=== PATIENT | male | born 1945 | race Caucasian/White ===

== ENCOUNTER → 2017-01-10 | Outpatient (CLI) | payer BC, MEDICARE ==
[~2017-01-10] MED LIST: ALBU18HF2 INH; APIX5TAB PO; CLOT10TR PO; COLE625T PO; DOCU-132 PO; ESOM40CA PO; FENT1PAT28 TOP; FLUT1DIS3 ORAL INH; HYDR-4078 PO; IPRA3AMP AEROSOL; LACT1CAP58 PO; LORA0.5T2 PO; MONT10TA22 PO; ONDA-55 PO; OXYC1TAB11 PO; POLY17PO6 PO; PROP10TA10 PO; ROSU20TA PO; SERT25TA5 PO; VALA500T42 PO
== END ==
LOC: LABN 08:19
PROVIDERS: ATTEND Family Medicine
DX: R19.7 Diarrhea, unspecified (principal)
CPT/HCPCS: 87507

== ENCOUNTER 2017-01-21 06:43 | Emergency (ER) | payer MEDICARE, BC ==
[~2017-01-21] VITALS: Ht 167.6 cm; Wt 79.1 kg
[2017-01-21 06:47] VITALS: Ht 167.6 cm; Wt 79.1 kg
--- OUTSIDE RECORDS SUMMARY | 2017-01-21 06:48 | XMS REPORT | Referral Summary ---
Author Author [facility] Medicine Organization [facility] [place] Address Unknown Phone Unavailable Care Team Providers Care Report Developer Name Role Phone Surekha Basurto Primary Care Physician [phone] Encounter VC Date(s): 10/02/16 - 10/02/16 [facility] [place] [address] [place] [id number]- Discharge Diagnosis: Multiple myeloma Discharge Diagnosis: ASHLEY (generalized anxiety disorder) Discharge Diagnosis: Mild persistent asthma Discharge Diagnosis: History of pulmonary embolism Discharge Disposition: 01-Home or Self Care Attending Physician: Cortez Basurto MD Vital Signs Most recent to 1 oldest [Reference Range]: Temperature Tympanic 36.4 degC [36.6-38.1 degC] *LOW* (10/02/16 1:19 PM) Peripheral Pulse 76 bpm Rate [60-100 bpm] (10/02/16 1:19 PM) Blood Pressure 128/80 mmHg [90-140/60-90 mmHg] (10/02/16 1:19 PM) SpO2 97 % (10/02/16 1:19 PM) Problem List Condition Effective Dates Status Health Status Informant Abdominal Active pain(Confirmed) LLQ abdominal Active tenderness(Confirmed ) Acute Active bronchitis(Confirmed ) Acute Active pain(Confirmed) Allergic Resolved rhinitis(Confirmed) Alteration in Active nutrition(Confirmed) 1 Anemia(Confirmed) Resolved At high risk for Active pneumonia(Confirmed) At risk for Active injury(Confirmed)2 At risk of pressure Active sore(Confirmed) Abnormal barium Active swallow(Confirmed) Benign prostatic Resolved hyperplasia(Confirme d) Bleeding Active precautions(Confirme d)3 Cancer of Resolved prostate(Confirmed) Oral Active thrush(Confirmed) CAD (coronary artery Active disease)(Confirmed) Coronary artery Resolved disease(Confirmed) Chronic Resolved diarrhea(Confirmed) Chronic low Active WBC(Confirmed) Dysuria(Confirmed) Active Eczema(Confirmed) Resolved Benign essential Active tremor(Confirmed) ASHLEY (generalized Active anxiety disorder)(Confirmed) History of pulmonary Active embolism(Confirmed) Personal history of Active prostate cancer(Confirmed) High blood Active cholesterol(Confirme d) Hypertension(Confirm Active ed) Impaired gas Active exchange(Confirmed)4 Nephrolithiasis(Conf Active irmed) Knowledge Active deficit(Confirmed)5 Left flank Active pain(Confirmed) Left inguinal Active hernia(Confirmed) Prostate 2008 Resolved cancer(Confirmed) Prostate 2007 Resolved cancer(Confirmed) Well adult Active exam(Confirmed) Microscopic Resolved hematuria(Confirmed) Asthma(Confirmed) Active Multiple Active patient myeloma(Confirmed) Obesity(Confirmed) Active patient Pathologic lumbar Active vertebral fracture(Confirmed) Hypercholesterolemia Active (Confirmed) Colon cancer Resolved screening(Confirmed) 1Problem added automatically by system based on initiation of Alteration in Nutrition Plan of Care 2Problem added automatically by system based on initiation of Risk for Injury Plan of Care 3Problem added automatically by system based on initiation of Bleeding Precautions Plan of Care 4Problem added automatically by system based on initiation of Impaired Gas Exchange Plan of Care 5Problem added automatically by system based on initiation of Knowledge Deficit Plan of Care Allergies, Adverse Reactions, Alerts Substance Reaction Severity Status aspirin upset stomach Active atorvastatin myalgias Active Dilaudid1 Active morphine extended release abdominal pain, nausea Active theophylline tachycardia Active 1Nausea/vomitting Medications acyclovir 800 mg oral tablet 800 mg 1 tabs, Oral, BID, 0 Refill(s) Start Date: 09/30/16 Status: Ordered Advair Diskus 250 mcg-50 mcg inhalation powder 1 puffs, Inhalation, BID, 0 Refill(s) Start Date: 07/27/16 Status: Ordered albuterol CFC free 90 mcg/inh inhalation aerosol 1 puffs, Inhalation, QID, as needed for wheezing, takes it routinely, # 18 g, 11 Refill(s), Pharmacy: [facility] #[id number] Start Date: 05/21/16 Status: Ordered Carafate 1 g/10 mL oral suspension 1 g 10 mL, Oral, QIDACHS, 0 Refill(s) Start Date: 09/30/16 Status: Ordered clotrimazole 10 mg oral lozenge 10 mg 1 lozenges, Oral, QID, 0 Refill(s) Start Date: 09/30/16 Status: Ordered Dulcolax Laxative See Instructions, 1 tablet daily as needed for constipation, 0 Refill(s) Start Date: 06/05/16 Status: Ordered DuoNeb 0.5 mg-2.5 mg/3 mL inhalation solution 3 mL, NEB, QID, takes it 2-3 times daily, on average, 0 Refill(s) Start Date: 03/23/16 Status: Ordered Eliquis 5 mg oral tablet 5 mg 1 tabs, Oral, BID, # 60 tabs, 11 Refill(s), Pharmacy: [facility] # [id number], 1 tabs Oral BID Start Date: 03/06/16 Status: Ordered fentaNYL 50 mcg/hr transdermal film, extended release 1 patches, Topical, q72hr, # 10 patches, 0 Refill(s) Start Date: 09/29/16 Status: Ordered Klor-Con M10 oral tablet, extended release 20 mEq 2 tabs, Oral, BID, # 120 tabs, 0 Refill(s), Pharmacy: [facility] # [id number], 2 tabs Oral BID,x30 days Start Date: 09/30/16 Stop Date: 10/30/16 Status: Ordered LORazepam 0.5 mg oral tablet 0.5 mg 1 tabs, Oral, TID, as needed for anxiety, only takes it once a day, on average, 0 Refill(s) Start Date: 08/31/16 Status: Ordered magnesium hydroxide 8% oral suspension 2.4 g 30 mL, Oral, Bedtime (once a day), as needed for constipation, # 300 mL, 0 Refill(s) Start Date: 09/30/16 Status: Ordered NexIUM 40 mg oral delayed release capsule 40 mg 1 caps, Oral, Daily, # 30 caps, 0 Refill(s) Start Date: 09/30/16 Status: Ordered Percocet 7.5/325 oral tablet 1 tabs, Oral, QID, as needed for pain, # 30 tabs, 0 Refill(s) Start Date: 07/13/16 Status: Ordered predniSONE 10 mg oral tablet See Instructions, 4 tabs QD X 2d, 3 tabs QD X 2d, 2 tabs QD X 2d, 1 tab QD X 2d , # 20 tabs, 0 Refill(s), Pharmacy: [facility] #[id number], 4 tabs QD X 2d, 3 tabs QD X 2d, 2 tabs QD X 2d, 1 tab QD X 2d Start Date: 10/02/16 Stop Date: 10/10/16 Status: Ordered propranolol 10 mg oral tablet 10 mg 1 tabs, Oral, BID, # 60 tabs, 5 Refill(s), Pharmacy: [facility] # [id number], 1 tabs Oral BID Start Date: 06/15/16 Status: Ordered sertraline 25 mg, Oral, qPM, 0 Refill(s) Start Date: 03/23/16 Status: Ordered Singulair 10 mg oral tablet 10 mg 1 tabs, Oral, qPM, # 90 tabs, 3 Refill(s), Pharmacy: [facility] # [id number], 1 tabs Oral qPM Start Date: 03/11/16 Status: Ordered Zofran 8 mg, Oral, TID, as needed for nausea/vomiting, taking it twice a week, on average, 0 Refill(s) Start Date: 04/27/16 Status: Ordered Results No data available for this section Immunizations Given and Recorded Vaccine Date Status Refusal Reason tetanus/diphth/pertuss (Tdap) adult/adol 09/25/08 Recorded hepatitis A-hepatitis B vaccine 07/27/14 Given hepatitis A-hepatitis B vaccine 11/17/13 Given hepatitis A-hepatitis B vaccine 11/18/12 Given influenza virus vaccine, inactivated 06/05/16 Given influenza virus vaccine, inactivated 07/08/15 Given influenza virus vaccine, inactivated1 06/15/14 Recorded influenza virus vaccine, live 06/19/13 Given influenza virus vaccine, live 08/30/12 Given pneumococcal 13-valent conjugate vaccine 11/23/14 Given pneumococcal 13-valent conjugate vaccine2 11/17/13 Given pneumococcal 23-polyvalent vaccine 11/17/13 Given pneumococcal 23-polyvalent vaccine 09/25/08 Recorded pneumococcal 23-polyvalent vaccine 07/11/02 Recorded zoster vaccine live 09/25/08 Recorded 1Result Comment: [06/15/2014] See scanned document 2Result Comment: [05/23/2015 Uncharted] Uploaded in Error - CC Procedures Procedure Date Related Diagnosis Body Site Insertion Dialysis Catheter (Right, Internal, 07/27/16 Jugular)1 Cardiac catheterisation2 2015 Pulmonary emboli3 2015 Esophagogastroduodenoscopy and biopsy4 06/10/15 Repair of inguinal hernia5 06/11/14 Colonoscopy6 01/12/14 Cholecystectomy 2012 Laparoscopic cholecystectomy 2012 Sigmoidoscopy 2010 Cystoscopy/laser vaporization 2008 Pelvic lymphadenectomy, bilateral 2008 Radiacl nerve - sparing retropubic 2008 prostatectomy Bone marrow biopsy 2004 Esophagogastroduodenoscopy [EGD] with closed 2004 biopsy Sigmoidoscopy 2003 Cardiac catheterization 2000 Coronary angiogram 2000 Flexible sigmoidoscopy 1998 Tympanostomy 1998 Repair of left TM 1970 Nasal polypectomy 1959 Cystoscopy 1auto-populated from documented surgical case 2mild CAD--Dr. Oliveira 3hospitalized in January 2016 for this 4EGD with biopsies from antrum via cold biopsy forceps technique as well as polypectomies x2 via cold biopsy forceps technique 5Left, with mesh 6Normal, repeat in 10 years Social History Social History Type Response Smoking Status Light tobacco smoker1, 2, 3 1quit chewing tobacco 01/12/16. 2Pt. states has not smoked in 30 years 3quit smoking 25 years ago, but still chews daily Assessment and Plan Extracted from: Title: Ambulatory Patient Education Author: Cortez Basurto MD Date: 10/02 Allergy Asthma, Adult Asthma is a recurring condition in which the airways tighten and narrow. Asthma can make it difficult to breathe. It can cause coughing, wheezing, and shortness of breath. Asthma episodes, also called asthma attacks, range from minor to life-threatening. Asthma cannot be cured, but medicines and lifestyle changes can help control it. CAUSES Asthma is believed to be caused by inherited (genetic) and environmental factors , but its exact cause is unknown. Asthma may be triggered by allergens, lung infections, or irritants in the air. Asthma triggers are different for each person. Common triggers include: Animal dander. Dust mites. Cockroaches. Pollen from trees or grass. Mold. Smoke. Air pollutants such as dust, household force dispatcher, hair sprays, aerosol sprays, paint fumes, strong chemicals, or strong odors. Cold air, weather changes, and winds (which increase molds and pollens in the air). Strong emotional expressions such as crying or laughing hard. Stress. Certain medicines (such as aspirin) or types of drugs (such as beta- blockers). Sulfites in foods and drinks. Foods and drinks that may contain sulfites include dried fruit, potato chips, and sparkling grape juice. Infections or inflammatory conditions such as the flu, a cold, or an inflammation of the nasal membranes (rhinitis). Gastroesophageal reflux disease (GERD). Exercise or strenuous activity. SYMPTOMS Symptoms may occur immediately after asthma is triggered or many hours later. Symptoms include: Wheezing. Excessive nighttime or special service officer coughing. Frequent or severe coughing with a common cold. Chest tightness. Shortness of breath. DIAGNOSIS The diagnosis of asthma is made by a review of your medical history and a physical exam. Tests may also be performed. These may include: Lung function studies. These tests show how much air you breathe in and out. Allergy tests. Imaging tests such as X-rays. TREATMENT Asthma cannot be cured, but it can usually be controlled. Treatment involves identifying and avoiding your asthma triggers. It also involves medicines. There are 2 classes of medicine used for asthma treatment: Controller medicines. These prevent asthma symptoms from occurring. They are usually taken every day. Reliever or rescue medicines. These quickly relieve asthma symptoms. They are used as needed and provide short-term relief. Your health care provider will help you create an asthma action plan. An asthma action plan is a written plan for managing and treating your asthma attacks. It includes a list of your asthma triggers and how they may be avoided. It also includes information on when medicines should be taken and when their dosage should be changed. An action plan may also involve the use of a device called a peak flow meter. A peak flow meter measures how well the lungs are working. It helps you monitor your condition. HOME CARE INSTRUCTIONS Take medicines only as directed by your health care provider. Speak with your health care provider if you have questions about how or when to take the medicines. Use a peak flow meter as directed by your health care provider. Record and keep track of readings. Understand and use the action plan to help minimize or stop an asthma attack without needing to seek medical care. Control your home environment in the following ways to help prevent asthma attacks: Do not smoke. Avoid being exposed to secondhand smoke. Change your heating and air conditioning filter regularly. Limit your use of fireplaces and wood stoves. Get rid of pests (such as roaches and mice) and their droppings. Throw away plants if you see mold on them. Clean your floors and dust regularly. Use unscented cleaning products. Try to have someone else vacuum for you regularly. Stay out of rooms while they are being vacuumed and for a short while afterward. If you vacuum, use a dust mask from a hardware store, a double-layered or microfilter vacuum barrel cleaner bag, or a vacuum barrel cleaner with a HEPA filter. Replace carpet with wood, tile, or vinyl deisy. Carpet can trap dander and dust. Use allergy-proof pillows, mattress covers, and box spring covers. Wash bed sheets and blankets every week in hot water and dry them in a dryer. Use blankets that are made of polyester or cotton. Clean bathrooms and alejandra with bleach. If possible, have someone repaint the mars in these rooms with mold-resistant paint. Keep out of the rooms that are being cleaned and painted. Wash hands frequently. SEEK MEDICAL CARE IF: You have wheezing, shortness of breath, or a cough even if taking medicine to prevent attacks. The colored mucus you cough up (sputum) is thicker than usual. Your sputum changes from clear or white to yellow, green, anrdade, or bloody. You have any problems that may be related to the medicines you are taking (such as a rash, itching, swelling, or trouble breathing). You are using a reliever medicine more than 23 times per week. Your peak flow is still at 5079% of your personal best after following your action plan for 1 hour. You have a fever. SEEK IMMEDIATE MEDICAL CARE IF: You seem to be getting worse and are unresponsive to treatment during an asthma attack. You are short of breath even at rest. You get short of breath when doing very little physical activity. You have difficulty eating, drinking, or talking due to asthma symptoms. You develop chest pain. You develop a fast heartbeat. You have a bluish color to your lips or fingernails. You are light-headed, dizzy, or faint. Your peak flow is less than 50% of your personal best. MAKE SURE YOU: Understand these instructions. Will watch your condition. Will get help right away if you are not doing well or get worse. This information is not intended to replace advice given to you by your health care provider. Make sure you discuss any questions you have with your health care provider. Document Released: 08/30/2006 Document Revised: 09/20/2015 Document Reviewed: [employer] Patient Education 2016 [employer] No follow up information was provided. Extracted from: Title: difficulty breathing Author: Cortez Basurto MD Date: 10/02/16 Impression and Plan Diagnosis Difficulty breathing (KNC67-XM R06.89, Working, Medical). Mild persistent asthma ([id number] J45.30, Discharge, Medical). ASHLEY (generalized anxiety disorder) (OEJ25-VT F41.1, Discharge, Medical). Multiple myeloma (MBW19-TO C90.00, Discharge, Medical). History of pulmonary embolism (CDQ87-QD Z86.711, Discharge, Medical). Plan: 1) Aerosol treatment of unit dose albuterol was given today, after which he felt improved. 2) Take the Prednisone taper as prescribed. 3) Continue your routine meds. 4) Use your Duoneb QID. 5) Take the Lorazepam as needed for anxiety. 6) See me in early October as scheduled. 7) Go to the ER or come in sooner if other signs of respiratory difficulty occur: coughing, chest pains, etc.. Orders Orders (Selected) Outpatient Orders Ordered Office Visit Level 4 Est 82134: Completed albuterol 2.5 mg/3 mL (0.083%) inhalation solution: 2.5 mg, NEB, Once Future (On Hold) BMP: Magnesium Level: Prescriptions Prescribed predniSONE 10 mg oral tablet: See Instructions, 4 tabs QD X 2d, 3 tabs QD X 2d, 2 tabs QD X 2d, 1 tab QD X 2d, 20 tabs, 0 Refill(s). Dx/Order Association Plan: Diagnosis: Difficulty breathing Comment: Ordered: Office Visit Level 4 Est [id number]; 10/02/16 14:06:00 SCRUFF WORKER, Difficulty breathing | Mild persistent asthma | ASHLEY (generalized anxiety disorder) | Multiple myeloma | History of pulmonary embolism Diagnosis: ASHLEY (generalized anxiety disorder) Comment: Ordered: Office Visit Level 4 Est [id number]; 10/02/16 14:06:00 SCRUFF WORKER, Difficulty breathing | Mild persistent asthma | ASHLEY (generalized anxiety disorder) | Multiple myeloma | History of pulmonary embolism Diagnosis: History of pulmonary embolism Comment: Ordered: Office Visit Level 4 Est [id number]; 10/02/16 14:06:00 SCRUFF WORKER, Difficulty breathing | Mild persistent asthma | ASHLEY (generalized anxiety disorder) | Multiple myeloma | History of pulmonary embolism Diagnosis: Mild persistent asthma Comment: Ordered: Office Visit Level 4 Est [id number]; 10/02/16 14:06:00 SCRUFF WORKER, Difficulty breathing | Mild persistent asthma | ASHLEY (generalized anxiety disorder) | Multiple myeloma | History of pulmonary embolism Diagnosis: Multiple myeloma Comment: Ordered: Office Visit Level 4 Est [id number]; 10/02/16 14:06:00 SCRUFF WORKER, Difficulty breathing | Mild persistent asthma | ASHLEY (generalized anxiety disorder) | Multiple myeloma | History of pulmonary embolism Additional Orders: Comment: Ordered: predniSONE 10 mg oral tablet,See Instructions, 4 tabs QD X 2d, 3 tabs QD X 2d, 2 tabs QD X 2d, 1 tab QD X 2d, # 20 tabs, 0 Refill(s), Pharmacy: [facility] #[id number], 4 tabs QD X 2d, 3 tabs QD X 2d, 2 tabs QD X 2d, 1 tab QD X 2d End of Orders ."
--- OUTSIDE RECORDS SUMMARY | 2017-01-21 06:48 | XMS REPORT | Continuity of Care Document ---
Author Author [facility] Organization [facility] Address Unknown Phone Unavailable Support Name Relationship Address Phone ZARINA CHENG MD Caregiver [address] [place] [address] Unavailable MIRTA GUERRIER MD Caregiver [address] [place] [address] Unavailable ANNA JETT Next Of Kin [address] [place] [address] Insurance Providers Guarantor Zarina Mortensen Address [address] [place] [address] Email [email or web address] [facility] Policy Number [id number] Subscriber's Name Zarina Mortensen Relationship 18 Self Group Number [id number] Payer Medicare Policy Number [id number] Subscriber's Name Zarina Mortensen Relationship 18 Self Advance Directives Directive Response Recorded Date/Time Advanced Directives Type Living Will DPOA for Healthcare 01/11/14 3:07pm Ordered Resuscitation Status Full Code 01/11/14 4:34pm Resuscitation Documents on File No 01/11/14 3:07pm Chief Complaint and Reason for Visit Chief Complaint Low Back Pain or Injury Reason for Visit Chronic low back pain with bilateral sciatica Problems Active Problems Medical Problem Onset Date Status Anxiety Unknown Acute Atelectasis of both lungs Unknown Acute Compression fracture of spine ~12/2015 Chronic Dyspnea Unknown Acute GERD (gastroesophageal reflux disease) Unknown Hematuria, microscopic Unknown Acute Hyperlipidemia Unknown Chronic Hypertension Unknown Hypoxia ~01/2016 Acute LLQ abdominal pain Unknown Acute Leukopenia Unknown Chronic Lumbar strain Unknown Acute Multiple myeloma Unknown Chronic Nocturnal hypoxia Unknown Chronic Normocytic anemia Unknown Obesity (BMI 30.0-34.9) Unknown Chronic Prostate cancer ~2007 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 Urticaria Unknown Acute Past Problems Medical Problem Onset Date Acute exacerbation of chronic low back pain Unknown Acute exacerbation of chronic low back pain Unknown Anxiety Unknown Asthma exacerbation Unknown Bilateral hip pain Unknown Bony metastasis Unknown Chest pain Unknown Chest pain Unknown Chronic low back pain Unknown Chronic low back pain Unknown Chronic low back pain with bilateral sciatica Unknown Chronic low back pain with sciatica Unknown Dehydration Unknown Dehydration syndrome Unknown Dizziness Unknown Exacerbation of chronic back pain Unknown Hematuria Unknown Hx of pulmonary embolus Unknown Hx of pulmonary embolus Unknown Left sided abdominal pain Unknown Pulmonary emboli Unknown Pulmonary emboli ~01/2016 Pulmonary embolism Unknown Vomiting Unknown Medications Current Home Medications Medication Dose Units Route Directions Days Qty Instructions Start Date Albuterol Sulfate (Ventolin Hfa 90 Mcg/Actuation) 18 Gm Hfa.aer.ad 1 Puff Inhalation Four Times Daily as needed for Prn Orders 06/10/15 Apixaban (Eliquis) 5 Mg Tablet 5 Mg Oral Twice A Day 02/03/16 Clotrimazole 10 Mg Kianna 10 Mg Oral 5 Times Daily 03/30/16 Colesevelam Hcl (Welchol) 625 Mg Tablet 625 Mg Oral Bedtime 06/08 Docusate Sodium (Dulcolax Stool Softener) 100 Mg Capsule 100 Mg Oral Daily as needed for Constipation 06/18/16 Esomeprazole Magnesium (Nexium) 40 Mg Capsule.dr 40 Mg Oral Twice A Day 06/18/16 Fentanyl (Duragesic 100 Mcg/Hr) 1 Each Patch.td72 1 Patch Topically Every 72 Hours 06/18/16 Fluticasone/Salmeterol (Advair 250-50 Diskus) 1 Disk W/Dev Inhaler 1 Puff Oral Inhalation Resp.tx Twice A Day 02/03/16 Hydrocodone/Acetaminophen ([place] 10-325 Tablet) 10-325 Tablet 1-2 Tab Oral Every 4 Hours as needed for Pain 06/02/16 Ipratropium/Albuterol Sulfate (Iprat-Albut 0.5-3(2.5) Mg/3 Ml) 3 Ml Ampul.neb 1 Vial Aerosol Tx. Every 4 Hours as needed for Prn Orders 03/30/16 Lactobacillus Rhamnosus Gg (Culturelle) 1 Each Capsule 1 Cap Oral Bedtime 02/03/16 Lorazepam 0.5 Mg Tablet 0.5 Mg Oral Twice A Day 03/30/16 Montelukast Sodium (Singulair) 10 Mg Tablet 10 Mg Oral Bedtime Ondansetron Hcl 4 Mg Tablet 4 Mg Oral Twice A Day 03/30/16 Oxycodone/Acetaminophen (Percocet 7.5-325 Mg Tablet) 7.5-325 Tablet 1-2 Tab Oral Every 4 Hours as needed for Pain 30 Tablet Take 1-2 tablet(S), by mouth, every 4 hours as needed for pain. 07/11/16 Polyethylene Glycol 3350 (Miralax) 17 Gm Powd.pack 17 G Oral Daily as needed for Constipation 02/03/16 Propranolol Hcl 10 Mg Tablet 10 Mg Oral Twice A Day 06/18/16 Rosuvastatin Calcium (Crestor) 20 Mg Tablet 20 Mg Oral Bedtime Sertraline Hcl (Sertraline) 25 Mg Tablet 25 Mg Oral Bedtime 03/23 Valacyclovir Hcl (Valacyclovir) Unknown Strength Tablet 1 Tab Oral Daily 7 Days STARTING 07/18/16 07/23/16 Past Home Medications Medication Directions Ordered Status Advair , 09/24/10 Discontinued Aspirin (Aspirin Low Dose) 81 Mg Tablet.dr, 81 Mg Oral Daily 09/24/10 Discontinued Hydrocodone/Acetaminophen (Lortab 5-325 Mg Tablet) 1 Each Tablet, 5 Tab Oral Three Times A Day for Pain 05/03/16 Discontinued Magnesium Hydroxide (Milk Of Magnesia) 400 Mg/5 Ml Oral.susp, 30 Ml Oral Daily as needed for Constipation 02/03/16 Discontinued Metoprolol Succinate 25 Mg Tab.er.24h, 12.5 Mg Oral Bedtime 03/30/16 Discontinued Niaspan , 1000 Daily 09/24/10 Discontinued Oxycodone Hcl/Acetaminophen (Percocet 5-325 Mg Tablet) 5-325 Tablet, 1-2 Tab Oral Every 4 Hours as needed for Pain 05/03/16 Discontinued Oxycodone/Acetaminophen (Percocet 7.5-325 Mg Tablet) 7.5-325 Tablet, 1-2 Tab Oral Every 4 Hours as needed for Pain 07/11/16 Discontinued Simvastatin 40 Mg Tablet, 40 Mg Oral 09/24/10 Discontinued Social History Social History Problem Response Recorded Date/Time Onset Date Status Chewing Tobacco Status Y OCCASIONALLY 01/12/2014 6:37am Not Applicable Not Applicable Hx Substance Use No 07/23/2016 8:54pm Not Applicable Not Applicable Hx Alcohol Use No 07/23/2016 8:54pm Not Applicable Not Applicable Has the pt used tobacco in the last 12 months Yes 04/02/2016 9:18am Not Applicable Not Applicable Tobacco Usage none 02/19/2016 3:41pm Not Applicable Not Applicable Query Response Start Date Stop Date Smoking Status Former smoker Hospital Discharge Instructions No hospital discharge instructions. Plan of Care Discharge Date 07/23/16 10:34pm Disposition 01 DISCHARGED HOME, SELF-CARE Condition at Discharge Improved Instructions/Education Provided Sciatica Low Back Pain Prescriptions See Medication Section Referrals MIRTA GUERRIER MD Address: [address] [place] [address] [place] [phone] Additional Instructions/Education Follow with your PCP or oncologist tomorrow for reevaluation of your chronic back pain. Take your prescribed medications as directed. Follow treatment plan. Care Plan and Goals Physician Care Plan Problem: Chronic low back pain with sciatica Goal: Follow up with primary care provider Instructions: Take medications and follow care plan as discussed/written Functional Status No functional status results. Allergies, Adverse Reactions, Alerts Allergen Type Severity Reaction Status Last Updated atorvastatin calcium Adverse Reaction Unknown GI DISTRESS Active 07/23/16 Theophylline Adverse Reaction Unknown GI DISTRESS Active 07/23/16 Morphine Adverse Reaction Intermediate GI DISTRESS Active 07/23/16 Aspirin Adverse Reaction Unknown GI DISTRESS Active 07/23/16 Immunizations Query Response on File Recorded Date/Time Hx Influenza Vaccination Y JUN 2015 04/02/16 9:18am Hx Pneumococcal Vaccination Y JUN 2015 PCV 13 04/02/16 9:18am Hx Influenza Vaccination Y JUN 2015 04/02/16 9:18am Influenza Vaccine Hx 201507/23/16 8:54pm Vital Signs Acute Vital Signs Vital Response Date/Time Temperature (Fahrenheit) 98.3 deg F (96.8 - 99.1) 07/23/2016 8:27pm Temperature (Calculated Celsius) 36.82572 degrees C (36.0 - 37.3) 07/23/2016 8:27pm Pulse Rate (adult) 74 bpm (60 - 100) 07/23/2016 10:34pm Respiratory Rate 18 breaths/min (10 - 20) 07/23/2016 10:34pm O2 Sat by Pulse Oximetry 94 % (90 - 100) 07/23/2016 10:34pm Oxygen Flow Rate 2.00 L/min 05/22/2016 5:49am Blood Pressure 135/82 mm Hg 07/23/2016 10:34pm Height (Feet) 5 feet 07/23/2016 8:27pm Height (Inches) 6.00 inches 07/23/2016 8:27pm Weight (Kilograms) 80.200 kg 07/23/2016 8:27pm Body Mass Index (BMI) 28.0 07/23/2016 8:27pm Results Laboratory Results Test Name Result Units Flags Reference Collection Date/Time Result Date/ Time Comments Lipase 10 U/L L 23-300 05/22/2016 3:00am 05/22/2016 4:46am Urine WBC NONE SEEN /HPF 0-5 05/22/2016 4:00am 05/22/2016 4:37am Urine RBC 5-10 /HPF H 0-3 05/22/2016 4:00am 05/22/2016 4:37am Urine Bacteria NONE SEEN NEGATIVE 05/22/2016 4:00am 05/22/2016 4: 37am Urine Mucus PRESENT 05/22/2016 4:00am 05/22/2016 4:37am Urine Culture Indicated CULT NOT INDICATED 05/22/2016 4:00am 2015 4:37am White Blood Count 2.6 T/MM3 L 4.5-11.0 07/11/2016 12:17pm 07/11/2016 12: 23pm Red Blood Count 3.58 M/MM3 L 4.50-5.90 07/11/2016 12:1707/11/2016 12: 23pm Hemoglobin 11.4 GM/DL L 13.5-17.5 07/11/2016 12:1707/11/2016 12:23pm Hematocrit 34.2 % L 41-53 07/11/2016 12:17pm 07/11/2016 12:23pm Mean Corpuscular Volume 95.5 UM3 80-100 07/11/2016 12:1707/11/2016 12:23pm Mean Corpuscular Hemoglobin 31.8 UUG 26-34 07/11/2016 12:17pm 2015 12:23pm Mean Corpuscular Hemoglobin Concent 33.3 GM/DL 31-37 07/11/2016 12:1707/11/2016 12:23pm RDW Standard Deviation 50.5 FL H 36.9-50.2 07/11/2016 12:17pm 2015 12:23pm Platelet Count 217 T/MM3 130-400 07/11/2016 12:17pm 07/11/2016 12:23pm Mean Platelet Volume 9.2 UM3 L 9.4-12.4 07/11/2016 12:1707/11/2016 12 :23pm Neutrophils (%) (Auto) 59.6 % 33-66 07/11/2016 12:17pm 07/11/2016 12: 23pm Lymphocytes (%) (Auto) 23.1 % 23-45 07/11/2016 12:07/11/2016 12: 23pm Monocytes (%) (Auto) 13.7 % H 0-9.0 07/11/2016 12:1707/11/2016 12: 23pm Eosinophils (%) (Auto) 1.6 % 0-4 07/11/2016 12:1707/11/2016 12:23pm Basophils (%) (Auto) 1.6 % 0-2 07/11/2016 12:07/11/2016 12:23pm Immature Granulocyte % (Auto) 0.4 % 0.0-0.5 07/11/2016 12:pm 2015 12:23pm Absolute Neutrophils (auto) 1.5 T/MM3 L 1.8-7.7 07/11/2016 12:17pm 07/11 12:23pm Absolute Lymphocytes (auto) 0.6 T/MM3 L 1-4.8 07/11/2016 12:17pm 2015 12:23pm Absolute Monocytes (auto) 0.4 T/MM3 0-0.8 07/11/2016 12:pm 2015 12:23pm Absolute Eosinophils (auto) 0.0 T/MM3 0-0.5 07/11/2016 12:2015 12:23pm Absolute Basophils (auto) 0.0 T/MM3 0-0.2 07/11/2016 12:2015 12:23pm Absolute Immature Granulocyte (auto 0.01 T/MM3 0.00-0.03 07/11/2016 12: 07/11/2016 12:23pm Icterus Index < 2 0-7 07/11/2016 12:18pm 07/11/2016 12:34pm Chemistry Specimen Hemolysis < 15 0-25 07/11/2016 12:18pm 07/11/2016 12:34pm 0-25: Specimen Exhibited No Hemolysis. Turbidity < 20 0-20 07/11/2016 12:18pm 07/11/2016 12:34pm Sodium Level 145 MEQ/L H 134-144 07/11/2016 12:18pm 07/11/2016 12:34pm Potassium Level 3.6 MEQ/L 3.6-5 07/11/2016 12:18pm 07/11/2016 12:34pm Chloride Level 106 MEQ/L 98-107 07/11/2016 12:18pm 07/11/2016 12:34pm Carbon Dioxide Level 29 MEQ/L 22-30 07/11/2016 12:18pm 07/11/2016 12: 34pm Anion Gap 10 MEQ/L 5-15 07/11/2016 12:18pm 07/11/2016 12:34pm Blood Urea Nitrogen 9.0 MG/DL 9-07/11/2016 12:18pm 07/11/2016 12: 34pm Creatinine 0.6 MG/DL L 0.8-1.5 07/11/2016 12:18pm 07/11/2016 12:34pm BUN/Creatinine Ratio 15 RATIO 6-26 07/11/2016 12:18pm 07/11/2016 12: 34pm Glomerular Filtration Rate Calc 134 07/11/2016 12:18pm 07/11/2016 12:34pm Glucose Level 106 MG/DL 75-110 07/11/2016 12:18pm 07/11/2016 12:34pm Calculated Osmolality 278 MOSM/KG 261-280 07/11/2016 12:18pm 2015 12:34pm Calcium Level 8.6 MG/DL 8.4-10.2 07/11/2016 12:18pm 07/11/2016 12:34pm Total Bilirubin 0.30 MG/DL 0.20-1.30 07/11/2016 12:18pm 07/11/2016 12: 34pm Alkaline Phosphatase 65 U/L 38-126 07/11/2016 12:18pm 07/11/2016 12: 34pm Total Protein 5.9 G/DL L 6.3-8.2 07/11/2016 12:18pm 07/11/2016 12:34pm Albumin 3.1 G/DL L 3.5-5.0 07/11/2016 12:18pm 07/11/2016 12:34pm Globulin 2.8 G/DL 2.4-3.6 07/11/2016 12:18pm 07/11/2016 12:34pm Albumin/Globulin Ratio 1.1 RATIO 1.1-2.2 07/11/2016 12:18pm 07/11/2016 12:34pm Aspartate Amino Transf (AST/SGOT) 10 U/L L 17-59 07/11/2016 12:18pm 12:34pm Alanine Aminotransferase (ALT/SGPT) 26 U/L 21-72 07/11/2016 12:18pm 12:34pm Urine Collection Type CLEANCATCH-MIDSTREAM 07/11/2016 1:48pm 2015 2:12pm Urine Color YELLOW YELLOW 07/11/2016 1:48pm 07/11/2016 2:12pm Urine Turbidity CLEAR CLEAR 07/11/2016 1:48pm 07/11/2016 2:12pm Urine Specific [place] 1.020 1.015-1.025 07/11/2016 1:48pm 2015 2:12pm Urine pH 8.0 5.0-8.0 07/11/2016 1:48pm 07/11/2016 2:12pm Urine Leukocyte Esterase NEGATIVE NEGATIVE 07/11/2016 1:48pm 2015 2:12pm Urine Nitrite NEGATIVE NEGATIVE 07/11/2016 1:48pm 07/11/2016 2:12pm Urine Protein NEGATIVE NEGATIVE 07/11/2016 1:48pm 07/11/2016 2:12pm Urine Glucose (UA) NEGATIVE NEGATIVE 07/11/2016 1:48pm 07/11/2016 2: 12pm Urine Ketones NEGATIVE NEGATIVE 07/11/2016 1:48pm 07/11/2016 2:12pm Urine Urobilinogen 0.2 EU/DL NORMAL 07/11/2016 1:48pm 07/11/2016 2: 12pm Urine Bilirubin NEGATIVE NEGATIVE 07/11/2016 1:48pm 07/11/2016 2: 12pm Urine Blood NEGATIVE NEGATIVE 07/11/2016 1:48pm 07/11/2016 2:12pm Urinalysis Comment MICROSCOPIC NOT IND. 07/11/2016 1:48pm 2015 2:12pm Procedures Procedure Status Date Provider(s) PLACE NEEDLE IN VEIN Completed 04/27/16 X-RAY EXAM L-S SPINE 2/3 VWS Completed 04/27/16 X-RAY EXAM HIP UNI 2-3 VIEWS Completed 04/27/16 THER/PROPH/DIAG INJ SC/IM Completed 04/27/16 EMERGENCY DEPT VISIT Completed 04/27/16752971"INJECTION, ORPHENADRINE CITRATE, UP TO 60 MG" Completed 04/27/16965015"INJECTION, FENTANYL CITRATE, 0.1 MG" Completed 04/27/16111725"INJECTION, FENTANYL CITRATE, 0.1 MG" Completed 04/27/16 CT CHEST SPINE W/O DYE Completed 05/03/16 CT LUMBAR SPINE W/O DYE Completed 05/03/16 METABOLIC PANEL TOTAL CA Completed 05/03/16 COMPLETE CBC W/AUTO DIFF WBC Completed 05/03/16 THER/PROPH/DIAG INJ IV PUSH Completed 05/03/16 TX/PRO/DX INJ NEW DRUG ADDON Completed 05/03/16 TX/PRO/DX INJ NEW DRUG ADDON Completed 05/03/16 TX/PRO/DX INJ SAME DRUG PROPERTY UNDERWRITER Completed 05/03/16 EMERGENCY DEPT VISIT Completed 05/03/16277588"INJECTION, DEXAMETHASONE SODIUM PHOSPHATE, 1MG" Completed 05/03/16250751"INJECTION, ORPHENADRINE CITRATE, UP TO 60 MG" Completed 05/03/16229742"INJECTION, FENTANYL CITRATE, 0.1 MG" Completed 05/03/16142965"INJECTION, FENTANYL CITRATE, 0.1 MG" Completed 05/03/16 CT ABD & PELVIS W/O CONTRAST Completed 05/22/16 COMPREHEN METABOLIC PANEL Completed 05/22/16 URINALYSIS AUTO W/SCOPE Completed 05/22/16 ASSAY OF LIPASE Completed 05/22/16 COMPLETE CBC W/AUTO DIFF WBC Completed 05/22/16 HYDRATE IV INFUSION ADD-ON Completed 05/22/16 HYDRATE IV INFUSION ADD-ON Completed 05/22/16 THER/PROPH/DIAG INJ IV PUSH Completed 05/22/16 TX/PRO/DX INJ NEW DRUG ADDON Completed 05/22/16 TX/PRO/DX INJ NEW DRUG ADDON Completed 05/22/16 TX/PRO/DX INJ SAME DRUG PROPERTY UNDERWRITER Completed 05/22/16 EMERGENCY DEPT VISIT Completed 05/22/16892477"INJECTION, LORAZEPAM, 2 MG" Completed 05/22/16414046"INJECTION, ONDANSETRON HYDROCHLORIDE, PER 1 MG" Completed 05/22/16278104"INJECTION, FENTANYL CITRATE, 0.1 MG" Completed 05/22/16"INJECTION, FENTANYL CITRATE, 0.1 MG" Completed 05/22/16"INFUSION, NORMAL SALINE SOLUTION , 1000 CC" Completed 05/22/16 CHEST X-RAY 2VW FRONTAL&LATL Completed 06/02/16 AIRWAY INHALATION TREATMENT Completed 06/02/16 EMERGENCY DEPT VISIT Completed 06/02/16087031"INJECTION, FENTANYL CITRATE, 0.1 MG" Completed 06/02/16"INJECTION, FENTANYL CITRATE, 0.1 MG" Completed 06/02/16 THER/PROPH/DIAG INJ SC/IM Completed 06/18/16 EMERGENCY DEPT VISIT Completed 06/18/16"INJECTION, LORAZEPAM, 2 MG" Completed 06/18/16"INJECTION, FENTANYL CITRATE, 0.1 MG" Completed 06/18/16 THER/PROPH/DIAG INJ SC/IM Completed 06/21/16 THER/PROPH/DIAG INJ SC/IM Completed 06/21/16 THER/PROPH/DIAG INJ SC/IM Completed 06/21/16 EMERGENCY DEPT VISIT Completed 06/21/16"INJECTION, DEXAMETHASONE SODIUM PHOSPHATE, 1MG" Completed 06/21/16"INJECTION, HYDROMORPHONE, UP TO 4 MG" Completed 06/21/16"INJECTION, KETOROLAC TROMETHAMINE, PER 15 MG" Completed 06/21/16 ROUTINE VENIPUNCTURE Completed 07/11/16 X-RAY EXAM HIP UNI 2-3 VIEWS Completed 07/11/16 COMPREHEN METABOLIC PANEL Completed 07/11/16 URINALYSIS AUTO W/O SCOPE Completed 07/11/16 COMPLETE CBC W/AUTO DIFF WBC Completed 07/11/16 THER/PROPH/DIAG INJ IV PUSH Completed 07/11/16 TX/PRO/DX INJ NEW DRUG ADDON Completed 07/11/16 TX/PRO/DX INJ SAME DRUG PROPERTY UNDERWRITER Completed 07/11/16 EMERGENCY DEPT VISIT Completed 07/11/16"INJECTION, METHYLPREDNISOLONE SODIUM SUCCINATE, UP TO Completed "INJECTION, FENTANYL CITRATE, 0.1 MG" Completed 07/11/16"INJECTION, FENTANYL CITRATE, 0.1 MG" Completed 07/11/16 Encounters Encounter Location Arrival/Admit Date Discharge/Depart Date Attending Provider Departed Emergency Room [facility] 07/23/16 8:24pm 07/23/16 10: 34pm ZARINA CHENG MD Departed Emergency Room [facility] 07/11/16 10:53am 07/11/16 3: 40pm AAMIR BARRIOS MD Departed Emergency Room [facility] 06/21/16 6:38pm 06/21/16 8: 20pm ZARINA CHENG MD Departed Emergency Room [facility] 06/18/16 7:17pm 06/18/16 8: 53pm JANUARYASHLEYJUANA Lr Departed Emergency Room [facility] 06/02/16 4:38am 06/02/16 7: 05am DAKOTAH PACHECO MD Departed Emergency Room [facility] 05/22/16 2:26am 05/22/16 5: 49am AAMIR BARRIOS MD Departed Emergency Room [facility] 05/03/16 5:51pm 05/03/16 7: 50pm AAMIR BARRIOS MD Departed Emergency Room [facility] 04/27/16 7:05am 04/27/16 10: 40am DAKOTAH PACHECO MD Recent Diagnosis
--- OUTSIDE RECORDS SUMMARY | 2017-01-21 06:49 | XMS REPORT | Referral Summary ---
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 Name Role Phone Surekha Basurto Primary Care Physician [phone] Encounter Date(s): 06/05/16 - 06/05/16 [facility] [address] [place] [phone] Discharge Diagnosis: Dyspnea Discharge Diagnosis: Bone metastases Discharge Diagnosis: Acute right hip pain Discharge Diagnosis: Acute right-sided low back pain Discharge Diagnosis: Multiple myeloma Discharge Diagnosis: Acute right lumbar radiculopathy Discharge Diagnosis: Pneumonia Discharge Diagnosis: CAD (coronary artery disease) Discharge Diagnosis: Asthma, moderate persistent Discharge Diagnosis: Diaphoresis Discharge Disposition: 01-Home or Self Care Attending Physician: Cortez Basurto MD Admitting Physician: Cortez Basurto MD Vital Signs Most recent to 1 oldest [Reference Range]: Temperature Tympanic 37.0 degC [36.6-38.1 degC] (06/05/16 8:31 AM) Peripheral Pulse 80 bpm Rate [60-100 bpm] (06/05/16 8:31 AM) Blood Pressure 122/82 mmHg [90-140/60-90 mmHg] (06/05/16 8:31 AM) SpO2 98 % (06/05/16 8:31 AM) Problem List Condition Effective Dates Status Health Status Informant Abdominal Active pain(Confirmed) LLQ abdominal Active tenderness(Confirmed ) Acute Active bronchitis(Confirmed ) Acute Active pain(Confirmed) Allergic Resolved rhinitis(Confirmed) Anemia(Confirmed) Resolved At high risk for Active pneumonia(Confirmed) At risk for Active injury(Confirmed)1 At risk of pressure Active sore(Confirmed) Abnormal barium Active swallow(Confirmed) Benign prostatic Resolved hyperplasia(Confirme d) Cancer of Resolved prostate(Confirmed) Oral Active thrush(Confirmed) CAD (coronary artery Active disease)(Confirmed) Coronary artery Resolved disease(Confirmed) Chronic Resolved diarrhea(Confirmed) Chronic low Active WBC(Confirmed) Dysuria(Confirmed) Active Eczema(Confirmed) Resolved Benign essential Active tremor(Confirmed) ASHLEY (generalized Active anxiety disorder)(Confirmed) History of pulmonary Active embolism(Confirmed) Personal history of Active prostate cancer(Confirmed) High blood Active cholesterol(Confirme d) Hypercholesterolemia Active (Confirmed) Hypertension(Confirm Active ed) Impaired gas Active exchange(Confirmed)2 Nephrolithiasis(Conf Active irmed) Knowledge Active deficit(Confirmed)3 Left flank Active pain(Confirmed) Left inguinal Active hernia(Confirmed) Prostate 2008 Resolved cancer(Confirmed) Prostate 2007 Resolved cancer(Confirmed) Well adult Active exam(Confirmed) Microscopic Resolved hematuria(Confirmed) Asthma(Confirmed) Active Multiple Active patient myeloma(Confirmed) Obesity(Confirmed) Active patient Pathologic lumbar Active vertebral fracture(Confirmed) Colon cancer Resolved screening(Confirmed) 1Problem added automatically by system based on initiation of Risk for Injury Plan of Care 2Problem added automatically by system based on initiation of Impaired Gas Exchange Plan of Care 3Problem added automatically by system based on initiation of Knowledge Deficit Plan of Care Allergies, Adverse Reactions, Alerts Substance Reaction Severity Status aspirin upset stomach Active atorvastatin myalgias Active Dilaudid1 Active morphine extended release abdominal pain, nausea Active theophylline tachycardia Active 1Nausea/vomitting Medications Advair Diskus 250 mcg-50 mcg inhalation powder 1 puffs, Inhalation, BID, # 180 Each, 1 Refill(s), Pharmacy: [facility] Start Date: 01/17/16 Status: Ordered albuterol CFC free 90 mcg/inh inhalation aerosol 1 puffs, Inhalation, QID, as needed for wheezing, # 18 g, 11 Refill(s), Pharmacy : [facility] #[id number] Start Date: 05/21/16 Status: Ordered amoxicillin-clavulanate 875 mg-125 mg oral tablet 1 tabs, Oral, q12hr, X 10 days, # 20 tabs, 0 Refill(s), Pharmacy: [facility] #[id number] Start Date: 06/05/16 Stop Date: 06/15/16 Status: Ordered clotrimazole 10 mg oral lozenge 10 mg 1 lozenges, Oral, 5x/Day, X 14 days, # 70 lozenges, 5 Refill(s), Pharmacy : [facility] #[id number], 1 lozenges Oral 5x/Day,x14 days Start Date: 05/07/16 Stop Date: 07/30/16 Status: Ordered Colace 100 mg oral capsule 100 mg 1 caps, Oral, BID, as needed for constipation, # 20 caps, 0 Refill(s) Start Date: 05/01/16 Status: Ordered Crestor 20 mg oral tablet 20 mg 1 tabs, Oral, Bedtime (once a day), # 90 tabs, 1 Refill(s), Pharmacy: [facility], 1 tabs Oral Bedtime (once a day) Start Date: 02/06/16 Status: Ordered [facility] 1 caps, Oral, qPM, as needed, 0 Refill(s) Start Date: 04/25/15 Status: Ordered dexamethasone 4 mg oral tablet 40 mg 10 tabs, Oral, Wednesday, 0 Refill(s) Start Date: 04/23/16 Status: Ordered Dulcolax Laxative See Instructions, 1 tablet daily as needed for constipation, 0 Refill(s) Start Date: 06/05/16 Status: Ordered DuoNeb 0.5 mg-2.5 mg/3 mL inhalation solution 3 mL, NEB, QID, 0 Refill(s) Start Date: 03/23/16 Status: Ordered Eliquis 5 mg oral tablet 5 mg 1 tabs, Oral, BID, # 60 tabs, 11 Refill(s), Pharmacy: [facility] # [id number], 1 tabs Oral BID Start Date: 03/06/16 Status: Ordered fentaNYL 100 mcg/hr transdermal film, extended release 1 patches, TransDermal, q72hr, 0 Refill(s) Start Date: 05/12/16 Status: Ordered fentaNYL 25 mcg/hr transdermal film, extended release 1 patches, Topical, q72hr, Dr. Higgins, 0 Refill(s) Start Date: 06/05/16 Status: Ordered fentaNYL 50 mcg/hr transdermal film, extended release 1 patches, Topical, q72hr, total dose is 150 mcg every 72 hours, # 10 patches, 0 Refill(s) Start Date: 06/05/16 Status: Ordered LORazepam 0.5 mg, Oral, BID, 0 Refill(s) Start Date: 04/27/16 Status: Ordered Milk of Magnesia 15 mL, Oral, BID, as needed for constipation, 0 Refill(s) Start Date: 04/27/16 Status: Ordered MiraLax oral powder for reconstitution 17 g, Oral, Daily, as needed for Constipation, dissolve in water before taking, # 527 g, 0 Refill(s) Start Date: 03/18/16 Status: Ordered NexIUM 40 mg oral delayed release capsule 40 mg 1 caps, Oral, Daily, # 30 caps, 11 Refill(s), Pharmacy: [facility] # [id number], Bill to patient, 1 caps Oral Daily,x30 days Start Date: 01/29/16 Stop Date: 01/23/17 Status: Ordered Biola 10 mg-325 mg oral tablet 1 tabs, Oral, QID, Pain Moderate (4-6), # 120 tabs, 0 Refill(s) Start Date: 05/21/16 Stop Date: 06/20/16 Status: Ordered propranolol 10 mg oral tablet 10 mg 1 tabs, Oral, BID, # 60 tabs, 0 Refill(s) Start Date: 05/15/16 Status: Ordered Revlimid 25 mg oral capsule 25 mg 1 caps, Oral, Daily, 14 days on, 7 off, then repeat the cycles. Start 05/08, 0 Refill(s) Start Date: 04/23/16 Status: Ordered sertraline 25 mg, Oral, qPM, 0 Refill(s) Start Date: 03/23/16 Status: Ordered Singulair 10 mg oral tablet 10 mg 1 tabs, Oral, qPM, # 90 tabs, 3 Refill(s), Pharmacy: [facility] # [id number], 1 tabs Oral qPM Start Date: 03/11/16 Status: Ordered Velcade 3.5 mg injection 1.3 mg/m2, SubCutaneous, Wednesday, 0 Refill(s) Start Date: 04/23/16 Status: Ordered Welchol 625 mg, Oral, qPM, 0 Refill(s) Start Date: 04/10/15 Status: Ordered Zofran 4 mg, Oral, TID, as needed for nausea/vomiting, 0 Refill(s) Start Date: 04/27/16 Status: Ordered Results Chemistry Most recent to 1 oldest [Reference Range]: Sodium Venous 139 mmol/L [136-145 mmol/L] (06/05/16 9:23 AM) Potassium Venous 4.0 mmol/L 1 [3.5-5.1 mmol/L] (06/05/16 9:23 AM) Calcium Ionized 1.13 mmol/L Venous [1.10-1.30 (06/05/16 9:23 AM) mmol/L] Total CO2 Venous 26 mmol/L [24-29 mmol/L] (06/05/16 9:23 AM) Glucose Venous 111 mg/dL [70-100 mg/dL] *HI* (06/05/16 9:23 AM) BUN Venous [8-26] 7 *LOW* (06/05/16 9:23 AM) Creatinine Venous 0.6 mg/dL [0.7-1.3 mg/dL] *LOW* (06/05/16 9:23 AM) Venous CL [98-109 101 mmol/L mmol/L] (06/05/16 9:23 AM) 1Result Comment: This test was performed on a whole blood specimen. The presence or absence of hemolysis cannot be assessed. Hemolysis can falsely elevate potassium levels. Normals are for venous specimens only. Immunizations Vaccine Date Refusal Reason tetanus/diphth/pertuss (Tdap) adult/adol 09/25/08 hepatitis A-hepatitis B vaccine 07/27/14 hepatitis A-hepatitis B vaccine 11/17/13 hepatitis A-hepatitis B vaccine 11/18/12 influenza virus vaccine, inactivated 06/05/16 influenza virus vaccine, inactivated 07/08/15 influenza virus vaccine, inactivated1 06/15/14 influenza virus vaccine, live 06/19/13 influenza virus vaccine, live 08/30/12 pneumococcal 13-valent conjugate vaccine 11/23/14 pneumococcal 23-polyvalent vaccine 11/17/13 pneumococcal 23-polyvalent vaccine 09/25/08 pneumococcal 23-polyvalent vaccine 07/11/02 zoster vaccine live 09/25/08 1Result Comment: [06/15/2014] See scanned document Procedures Procedure Date Related Diagnosis Body Site Cardiac catheterisation1 2016 Pulmonary emboli2 2016 Esophagogastroduodenoscopy and biopsy3 06/10/15 Repair of inguinal hernia4 06/11/14 Colonoscopy5 01/12/14 Cholecystectomy 2012 Laparoscopic cholecystectomy 2012 Sigmoidoscopy 2009 Cystoscopy/laser vaporization 2008 Pelvic lymphadenectomy, bilateral 2008 Radiacl nerve - sparing retropubic 2008 prostatectomy Bone marrow biopsy 2004 Esophagogastroduodenoscopy [EGD] with closed 2004 biopsy Sigmoidoscopy 2004 Cardiac catheterization 2000 Coronary angiogram 2001 Flexible sigmoidoscopy 1998 Tympanostomy 1998 Repair of left TM 1970 Nasal polypectomy 1960 Cystoscopy 1mild CAD--Dr. Oliveira 2hospitalized in January 2016 for this 3EGD with biopsies from antrum via cold biopsy forceps technique as well as polypectomies x2 via cold biopsy forceps technique 4Left, with mesh 5Normal, repeat in 10 years Social History Social History Type Response Smoking Status Light tobacco smoker1, 2, 3 1quit chewing tobacco 01/12/16. 2Pt. states has not smoked in 30 years 3quit smoking 25 years ago, but still chews daily Assessment and Plan Extracted from: Title: Ambulatory Patient Education Author: Cortez Basurto MD Date: 06/05 Family Medicine Pneumonia, Adult Pneumonia is an infection of the lungs. CAUSES Pneumonia may be caused by bacteria or a virus. Usually, the infection is caused by breathing in droplets from an infected person's cough or sneeze. SYMPTOMS Symptoms of pneumonia include: Cough. Fever. Chest pain. Rapid breathing. Shortness of breath. Shaking chills. Mucus production. DIAGNOSIS If you have the common symptoms of pneumonia, often your health care provider will confirm the diagnosis with a chest X-ray. The X-ray will show an abnormality in the lung if you have pneumonia. Other tests may be done on your blood, urine, or mucus (sputum) to find the specific cause of your pneumonia. A blood gas test or pulse oximetry test may be needed to check how well your lungs are working. TREATMENT Your treatment will depend on whether your pneumonia is caused by bacteria or a virus. Bacterial pneumonia is treated with antibiotic medicine. Pneumonia that is caused by the influenza virus may be treated with an antiviral medicine. Pneumonia that is caused by a virus other than influenza will not respond to antibiotic medicine. This type of pneumonia will have to run its course. HOME CARE INSTRUCTIONS Cough suppressants may be used if you are losing too much rest from coughing at night. However, you should try to avoid taking cough suppresants. This is because coughing helps to remove mucus from your lungs. Sleep in a semi-upright position at night. Try sleeping in a reclining chair, or place a few pillows under your head. Try using a cold steam vaporizer or humidifier in your home or bedroom. This may help loosen your mucus. If you were prescribed an antibiotic medicine, finish all of it even if you start to feel better. If you were prescribed an expectorant, take it as directed by your health care provider. This medicine loosens the mucus so you can cough it up. Take medicines only as directed by your health care provider. Do not smoke. If you are a smoker and continue to smoke, your cough may last several weeks after your pneumonia has cleared. Get rest when you feel tired, or as needed. PREVENTION A pneumococcal shot (vaccine) is available to prevent a common bacterial cause of pneumonia. This is usually suggested for: People over 65 years old. People on chemotherapy. People with chronic lung problems, such as bronchitis or emphysema. People with immune system problems. If you are over 65 years old or have a high risk condition, you may receive the pneumococcal vaccine if you have not received it before. In some countries, a routine influenza vaccine is also recommended. This vaccine can help prevent some cases of pneumonia.You may be offered the influenza vaccine as part of your care. If you are a smoker, it is time to quit in order to prevent pneumonia in the future. You may receive instructions on how to stop smoking. Your health care provider can provide medicines and counseling to help you quit. SEEK MEDICAL CARE IF: You have a fever. You cannot control your cough with suppressants at night, and you keep losing sleep. SEEK IMMEDIATE MEDICAL CARE IF: You have worsening shortness of breath. You have increased chest pain. Your sickness becomes worse, especially if you are an older adult or have a weakened immune system. You cough up blood. You have pain that is getting worse or is not controlled with medicines. Your symptoms are getting worse rather than better. This information is not intended to replace advice given to you by your health care provider. Make sure you discuss any questions you have with your health care provider. Document Released: 08/30/2006 Document Revised: 09/20/2015 Document Reviewed: [employer] Patient Information 2016 QBE. No follow up information was provided. Extracted from: Title: multiple problems Author: Cortez Basurto MD Date: 06/05/16 Impression and Plan Diagnosis Dyspnea (PEQ60-CW R06.00, Discharge, Medical). Diaphoresis (YLO60-YO R61, Discharge, Medical). Acute right-sided low back pain (POZ21-XO M54.5, Discharge, Medical). Acute right lumbar radiculopathy (KXN20-UX M54.16, Discharge, Medical). Bone metastases (VDR23-UF C79.51, Discharge, Medical). Multiple myeloma (KZD41-UX C90.00, Discharge, Medical). CAD (coronary artery disease) (TZU80-DR I25.10, Discharge, Medical). Acute right hip pain (XSH43-ZK M25.551, Discharge, Medical). Asthma, moderate persistent (IDT46-NG J45.40, Discharge, Medical). Need for influenza vaccination (JDA93-RM Z23, Working, Medical). Pneumonia (QUC42-VH J18.9, Discharge, Medical). Plan: 1) Take the Augmentin as prescribed. 2) MRI of the lumbar spine ordered. 3) CXR and lab obtained today. 4) Right hip xrays obtained today. 5) See me in 2 weeks. 6) Increase the Fentanyl to 150 mcg/hr. 7) Flu shot given.. Orders Orders (Selected) Outpatient Orders Ordered Office Visit Level 5 Est 54398: Canceled CBC w/ Differential: Completed Metabolic Panel i-STAT: XR Chest 2 Views: XR Hip w Pelvis when perform 2-3 vws RT: influenza virus vaccine, inactivated: 0.5 mL, IntraMuscular, Once Prescriptions Prescribed amoxicillin-clavulanate 875 mg-125 mg oral tablet: 1 tabs, Oral, q12hr, for 10 days, 20 tabs, 0 Refill(s) fentaNYL 50 mcg/hr transdermal film, extended release: 1 patches, Topical, q72hr , total dose is 150 mcg every 72 hours, 10 patches, 0 Refill(s). Dx/Order Association Plan: Diagnosis: Acute right hip pain Comment: Ordered: Office Visit Level 5 Est [id number]; 06/05/16 17:40:00 CDT, Pneumonia | Bone metastases | Acute right lumbar radiculopathy | Acute right- sided low back pain | Acute right hip pain | Asthma, moderate persistent | CAD ( coronary artery disease) | Diaphoresis | Dyspnea | Multiple myeloma | N... Other status: XR Hip w Pelvis when perform 2-3 vws RT; 06/05/16 9: 18:00 CDT, Routine, Stop date 06/05/16 9:18:00 CDT, Reason: Pain in joint, hip, pelvis or thigh, Transport Mode: Wheelchair, Patient has IV, Acute right hip pain | CAD (coronary artery disease), ABN Status: Not Required (Completed) Diagnosis: Acute right lumbar radiculopathy Comment: Ordered: Office Visit Level 5 Est [id number]; 06/05/16 17:40:00 CDT, Pneumonia | Bone metastases | Acute right lumbar radiculopathy | Acute right- sided low back pain | Acute right hip pain | Asthma, moderate persistent | CAD ( coronary artery disease) | Diaphoresis | Dyspnea | Multiple myeloma | N... Diagnosis: Acute right-sided low back pain Comment: Ordered: Office Visit Level 5 Est 56373; 06/05/16 17:40:00 CDT, Pneumonia | Bone metastases | Acute right lumbar radiculopathy | Acute right- sided low back pain | Acute right hip pain | Asthma, moderate persistent | CAD ( coronary artery disease) | Diaphoresis | Dyspnea | Multiple myeloma | N... Diagnosis: Asthma, moderate persistent Comment: Ordered: Office Visit Level 5 Est [id number]; 06/05/16 17:40:00 CDT, Pneumonia | Bone metastases | Acute right lumbar radiculopathy | Acute right- sided low back pain | Acute right hip pain | Asthma, moderate persistent | CAD ( coronary artery disease) | Diaphoresis | Dyspnea | Multiple myeloma | N... Diagnosis: Bone metastases Comment: Ordered: Office Visit Level 5 Est 78034; 06/05/16 17:40:00 CDT, Pneumonia | Bone metastases | Acute right lumbar radiculopathy | Acute right- sided low back pain | Acute right hip pain | Asthma, moderate persistent | CAD ( coronary artery disease) | Diaphoresis | Dyspnea | Multiple myeloma | N... Diagnosis: CAD (coronary artery disease) Comment: Ordered: Office Visit Level 5 Est [id number]; 06/05/16 17:40:00 CDT, Pneumonia | Bone metastases | Acute right lumbar radiculopathy | Acute right- sided low back pain | Acute right hip pain | Asthma, moderate persistent | CAD ( coronary artery disease) | Diaphoresis | Dyspnea | Multiple myeloma | N... Other status: Metabolic Panel i-STAT; Blood, Stat Collect, 9:18:00 CDT, Once, Stop date 06/05/16 9:18:00 CDT, Lab Collect, Diaphoresis | CAD (coronary artery disease) | Multiple myeloma (Completed) CBC w/ Differential; Blood, Stat Collect, 9:18:00 CDT, Once, Stop date 06/05/16 9:18:00 CDT, Lab Collect, Dyspnea | CAD (coronary artery disease) | Multiple myeloma (Canceled) XR Hip w Pelvis when perform 2-3 vws RT; 9:18:00 CDT, Routine, Stop date 06/05/16 9:18:00 CDT, Reason: Pain in joint, hip, pelvis or thigh, Transport Mode: Wheelchair, Patient has IV, Acute right hip pain | CAD (coronary artery disease), ABN Status: Not Required ( Completed) Diagnosis: Diaphoresis Comment: Ordered: Office Visit Level 5 Est [id number]; 06/05/16 17:40:00 CDT, Pneumonia | Bone metastases | Acute right lumbar radiculopathy | Acute right- sided low back pain | Acute right hip pain | Asthma, moderate persistent | CAD ( coronary artery disease) | Diaphoresis | Dyspnea | Multiple myeloma | N... Other status: Metabolic Panel i-STAT; Blood, Stat Collect, 9:18:00 CDT, Once, Stop date 06/05/16 9:18:00 CDT, Lab Collect, Diaphoresis | CAD (coronary artery disease) | Multiple myeloma (Completed) Diagnosis: Dyspnea Comment: Ordered: Office Visit Level 5 Est [id number]; 06/05/16 17:40:00 CDT, Pneumonia | Bone metastases | Acute right lumbar radiculopathy | Acute right- sided low back pain | Acute right hip pain | Asthma, moderate persistent | CAD ( coronary artery disease) | Diaphoresis | Dyspnea | Multiple myeloma | N... Other status: CBC w/ Differential; Blood, Stat Collect, 06/05/16 9 :18:00 CDT, Once, Stop date 06/05/16 9:18:00 CDT, Lab Collect, Dyspnea | CAD ( coronary artery disease) | Multiple myeloma (Canceled) XR Chest 2 Views; 06/05/16 9:18:00 CDT, Routine, Stop date 06/05/16 9:18:00 CDT, Reason: Cough, Transport Mode: Wheelchair, Patient has IV, Dyspnea, ABN Status: Not Required (Completed) Diagnosis: Multiple myeloma Comment: Ordered: Office Visit Level 5 Est [id number]; 06/05/16 17:40:00 CDT, Pneumonia | Bone metastases | Acute right lumbar radiculopathy | Acute right- sided low back pain | Acute right hip pain | Asthma, moderate persistent | CAD ( coronary artery disease) | Diaphoresis | Dyspnea | Multiple myeloma | N... Other status: Metabolic Panel i-STAT; Blood, Stat Collect, 9:18:00 CDT, Once, Stop date 06/05/16 9:18:00 CDT, Lab Collect, Diaphoresis | CAD (coronary artery disease) | Multiple myeloma (Completed) CBC w/ Differential; Blood, Stat Collect, 9:18:00 CDT, Once, Stop date 06/05/16 9:18:00 CDT, Lab Collect, Dyspnea | CAD (coronary artery disease) | Multiple myeloma (Canceled) Diagnosis: Need for influenza vaccination Comment: Ordered: Office Visit Level 5 Est 66625; 06/05/16 17:40:00 CDT, Pneumonia | Bone metastases | Acute right lumbar radiculopathy | Acute right- sided low back pain | Acute right hip pain | Asthma, moderate persistent | CAD ( coronary artery disease) | Diaphoresis | Dyspnea | Multiple myeloma | N... Diagnosis: Pneumonia Comment: Ordered: Office Visit Level 5 Est [id number]; 06/05/16 17:40:00 CDT, Pneumonia | Bone metastases | Acute right lumbar radiculopathy | Acute right- sided low back pain | Acute right hip pain | Asthma, moderate persistent | CAD ( coronary artery disease) | Diaphoresis | Dyspnea | Multiple myeloma | N... Additional Orders: Comment: Ordered: amoxicillin-clavulanate 875 mg-125 mg oral tablet,1 tabs, Oral, q12hr, X 10 days, # 20 tabs, 0 Refill(s), Pharmacy: [facility] # [id number] Ordered: fentaNYL 50 mcg/hr transdermal film, extended release,1 patches, Topical, q72hr, total dose is 150 mcg every 72 hours, # 10 patches, 0 Refill(s) End of Orders ."
--- OUTSIDE RECORDS SUMMARY | 2017-01-21 06:49 | XMS REPORT | Referral Summary ---
Author Author [facility] Organization [facility] Address Unknown Phone Unavailable Care Team Providers Care Store Leader Name Role Phone Surekha Basurto Primary Care Physician [phone] Encounter Date(s): 06/16/16 - 06/16/16 [facility] [address] [place] [address]- Discharge Diagnosis: Multiple myeloma Discharge Diagnosis: Oral thrush Discharge Diagnosis: Hypercholesterolemia Discharge Diagnosis: Benign essential tremor Discharge Diagnosis: Bone metastases Discharge Diagnosis: Pneumonia Discharge Diagnosis: Coronary artery disease Discharge Diagnosis: Asthma Discharge Disposition: 01-Home or Self Care Attending Physician: Cortez Basurto MD Admitting Physician: Cortez Basurto MD Vital Signs Most recent to 1 oldest [Reference Range]: Temperature Tympanic 36.8 degC [36.6-38.1 degC] (06/16/16 12:57 PM) Peripheral Pulse 92 bpm Rate [60-100 bpm] (06/16/16 12:57 PM) Blood Pressure 126/80 mmHg [90-140/60-90 mmHg] (06/16/16 12:57 PM) SpO2 94 % (06/16/16 12:57 PM) Problem List Condition Effective Dates Status [...] d) Hypertension(Confirm Active ed) Impaired gas Active exchange(Confirmed)2 Nephrolithiasis(Conf Active [facility]) Knowledge Active deficit(Confirmed)3 Left flank Active pain(Confirmed) Left inguinal Active hernia(Confirmed) Prostate 2007 Resolved cancer(Confirmed) Prostate 2007 Resolved cancer(Confirmed) Well [...] BID, # 180 Each, 1 Refill(s), Pharmacy: [facility] Start Date: 01/17/16 Status: Ordered albuterol CFC free 90 mcg/inh inhalation aerosol 1 puffs, Inhalation, QID, as needed for wheezing, # 18 g, 11 Refill(s), Pharmacy : [facility] #[id number] Start Date: 05/21/16 Status: Ordered amoxicillin-clavulanate 875 mg-125 mg oral tablet 1 tabs, Oral, q12hr, X 10 days, # 20 tabs, 0 Refill(s), Pharmacy: [facility] #[id number] Start Date: 06/16/16 Stop Date: 06/26/16 Status: Ordered clotrimazole 10 mg oral lozenge 10 mg 1 lozenges, Oral, 5x/Day, X 14 days, # 70 lozenges, 5 Refill(s), Pharmacy : [facility] #[id number], 1 lozenges Oral 5x/Day,x14 days Start Date: 05/07/16 Stop Date: 07/30/16 Status: Ordered Colace 100 mg oral capsule 100 mg 1 caps, Oral, BID, as needed for constipation, # 20 caps, 0 Refill(s) Start Date: 05/01/16 Status: Ordered Crestor 20 mg oral tablet 20 mg 1 tabs, Oral, Bedtime (once a day), # 90 tabs, 1 Refill(s), Pharmacy: [facility], 1 tabs Oral Bedtime (once a day) Start Date: 02/06/16 Status: Ordered [facility] 1 caps, Oral, qPM, as [...] BID, # 60 tabs, 11 Refill(s), Pharmacy: [facility] # [id number], 1 tabs Oral BID Start Date: 03/06/16 Status: Ordered fentaNYL 100 mcg/hr transdermal film, extended release 1 patches, TransDermal, q72hr, 0 Refill(s) Start Date: 05/12/16 Status: Ordered fentaNYL 50 mcg/hr transdermal film, [...] Daily, # 30 caps, 11 Refill(s), Pharmacy: [facility] # [id number], Bill to patient, 1 caps Oral Daily,x30 days Start Date: 01/29/16 Stop Date: 01/23/17 Status: Ordered [place] 10 mg-325 mg oral tablet 1 tabs, Oral, QID, Pain Moderate (4-6), # 120 tabs, 0 Refill(s) Start Date: 05/21/16 Stop Date: 06/20/16 Status: Ordered propranolol 10 mg oral tablet 10 mg 1 tabs, Oral, BID, # 60 tabs, 5 Refill(s), Pharmacy: [facility] # [id number], 1 tabs Oral BID Start Date: 06/15/16 Status: Ordered Revlimid 25 mg oral capsule 25 mg 1 caps, Oral, Daily, 14 days on, 7 off, then repeat the cycles. Start 05/08, 0 Refill(s) Start Date: 04/23/16 Status: Ordered sertraline 25 mg, Oral, qPM, 0 Refill(s) Start Date: 03/23/16 Status: Ordered Singulair 10 mg oral tablet 10 mg 1 tabs, Oral, qPM, # 90 tabs, 3 Refill(s), Pharmacy: [facility] # [id number], 1 tabs Oral qPM Start Date: 03/11/16 Status: Ordered Velcade 3.5 mg injection 1.3 mg/m2, SubCutaneous, Wednesday, 0 Refill(s) Start Date: 04/23/16 Status: Ordered Welchol 625 mg, Oral, qPM, 0 Refill(s) Start Date: 04/10/15 Status: Ordered Zofran 4 mg, Oral, TID, as needed for nausea/vomiting, 0 Refill(s) Start Date: 04/27/16 Status: Ordered Results Chemistry Most recent to 1 oldest [Reference Range]: Sodium Lvl [135-144 140 mEq/L mEq/L] (06/16/16 1:35 PM) Potassium Lvl 4.1 mEq/L [3.5-5.2 mEq/L] (06/16/16 1:35 PM) Chloride [99-111 104 mEq/L mEq/L] (06/16/16 1:35 PM) CO2 [23-31 mEq/L] 28 mEq/L (06/16/16 1:35 PM) AGAP [3-20] 8 (06/16/16 1:35 PM) BUN [8-26 mg/dL] 13 mg/dL (06/16/16 1:35 PM) Glucose Lvl [70-99 105 mg/dL mg/dL] *HI* (06/16/16 1:35 PM) Creatinine Lvl 0.60 mg/dL [0.72-1.25 mg/dL] *LOW* (06/16/16 1:35 PM) eGFR [>60 mL/min] >60 mL/min 1 (06/16/16 1:35 PM) Calcium Lvl 8.6 mg/dL [8.9-10.5 mg/dL] *LOW* (06/16/16 1:35 PM) Albumin Lvl [3.4-4.8 3.7 gm/dL gm/dL] (06/16/16 1:35 PM) Total Protein 6.2 gm/dL [6.0-7.6 gm/dL] (06/16/16 1:35 PM) Globulin [1.8-4.0 2.5 gm/dL gm/dL] (06/16/16 1:35 PM) ALT [0-55 U/L] 67 U/L *HI* (06/16/16 1:35 PM) AST [5-34 U/L] 27 U/L (06/16/16 1:35 PM) Alk Phos [40-150 118 U/L U/L] (06/16/16 1:35 PM) Bili Total [0.2-1.2 0.4 mg/dL mg/dL] (06/16/16 1:35 PM) 1Result Comment: Multiply eGFR results by 1.21 for race. Immunizations Vaccine Date Refusal Reason tetanus/diphth/pertuss (Tdap) [...] Date Related Diagnosis Body Site Cardiac catheterisation1 2015 Pulmonary emboli2 2016 Esophagogastroduodenoscopy and biopsy3 06/10/15 Repair of inguinal hernia4 06/11/14 Colonoscopy5 01/12/14 Cholecystectomy 2012 Laparoscopic cholecystectomy 2012 Sigmoidoscopy 2010 Cystoscopy/laser vaporization 2008 Pelvic lymphadenectomy, bilateral 2008 Radiacl nerve - sparing retropubic 2008 prostatectomy Bone marrow biopsy 2004 Esophagogastroduodenoscopy [EGD] with closed 2003 biopsy Sigmoidoscopy 2003 Cardiac catheterization 2000 Coronary angiogram 2000 Flexible sigmoidoscopy 1998 Tympanostomy 1998 Repair of left TM 1970 Nasal polypectomy 1959 Cystoscopy 1mild CAD--Dr. Oliveira 2hospitalized in January [...] Patient Education Author: Cortez Basurto MD Date: 06/16 Family Medicine Bone Metastases Cancerous growths can begin in any part of the body. The original site of cancer is called the primary tumor or primary cancer (for example, breast cancer ). After cancer has developed in one area of the body, cancerous cells from that area can break away and travel through the body's bloodstream. If these cancerous cells begin growing in another place in the body, they are called metastases. Bone metastases are cancer cells that have spread to the bone ( which is different from a cancer that starts in the bone). These secondary growths are like the original tumor. For example, if a prostate cancer spreads to bone it is called metastatic prostate cancer, or prostate cancer metastatic to bone, but not bone cancer. Cancers can spread to almost any bone; the spine and pelvis are often involved. Any type of cancer can spread to the bone, but the most common are breast, lung , kidney, thyroid and prostate cancers. Sometimes the primary tumor is not discovered until there are bone problems. If the primary cancer location cannot be discovered, the cancer is called cancer of unknown primary location. SYMPTOMS Pain in the bones is the main symptom of bone metastases. Some other problems may occur first including: Decreased appetite. Nausea. Muscle weakness. Confusion. Unusual sleep patterns due to discomfort. [place] tired (fatigue). Restlessness. Frail or brittle bones may lead to broken bones (fractures) that lead to learning what is wrong (diagnosis). A tumor often weakens the bones. DIAGNOSIS Metastatic cancers may be found months or years after or at the same time as the primary tumor. When a second tumor is found in a patient who has been treated for cancer, it is more often a metastasis than another primary tumor. The patient's symptoms, physical examination, X-rays and blood tests may suggest a bone metastases. In addition, an examination of tissue or a cell sample (biopsy) is usually done to find the cancer. This sample is removed with a needle. This tissue sample must be looked at under a microscope to confirm a diagnosis. TREATMENT Options generally include treatments that give relief from symptoms (palliative ) or curative. Those with advanced, metastasized cancer may receive treatment focused on pain relief and prolonging life. These treatments depend on the type of cancer and its location. Treatment for cancer depends on its type and location. Some of these treatments are: Surgery to remove the original tumor and/or to remove parts of the body that produce hormones and other chemicals that make cancer worse. Treatment with drugs (chemotherapy). Bone marrow transplantations on rare occasions. Radiation therapy (radiotherapy). Hormonal therapy. Pain relieving medications. Your caregiver will help you understand the likelihood that any particular treatment will be helpful for you. While some treatments aim to cure or control the cancer, others give relief from symptoms only. If you have bone metastases, radiation therapy may be recommended to treat pain (if it is in one main location). Pain medications are available. These include strong medicines like morphine. You may be instructed to take a long-acting pain medication (to control most of your pain) and a short-acting medication to control occasional flares of pain. Pain medication is sometimes also given continuously through a pump. HOME CARE INSTRUCTIONS Take medications exactly as prescribed. Keep any follow-up appointments. Pain medications can make you sleepy or confused. Do not drive, climb ladders, or do other dangerous activities while on pain medication. Pain medications often cause constipation. Ask your caregiver for information on stool softeners. Do not share your pain medication with others. SEEK MEDICAL CARE IF: Your bone pain is not controlled. You are having problems or side effects from your medication. You have excessive sleepiness or confusion. SEEK IMMEDIATE MEDICAL CARE IF: You fall and have any injury or pain from the fall. You have trouble walking. You have numbness or tingling in your legs. You develop a sudden significant worsening of your pain. This information is not intended to replace advice given to you by your health care provider. Make sure you discuss any questions you have with your health care provider. Document Released: 08/20/2003 Document Revised: 11/21/2012 Document Reviewed: [facility] Patient Information 2016 frestyl. No follow up information was provided. Extracted from: Title: multiple medical problems Author: Cortez Basurto MD Date: 06/16/16 Impression and Plan Diagnosis Asthma (GVB55-XW J45.31, Discharge, Medical). Coronary artery disease (PHX56-LE I25.10, Discharge, Medical). Hypercholesterolemia (TKH45-EP E78.00, Discharge, Medical). Benign essential tremor (HFL62-SI G25.0, Discharge, Medical). Oral thrush (ISO41-SI B37.0, Discharge, Medical). Multiple myeloma (RZL49-XC C90.00, Discharge, Patient Stated). Bone metastases (UPI36-PP C79.51, Discharge, Medical). Pneumonia (MTE40-ER J18.9, Discharge, Medical). Plan: 1) Lab ordered today. 2) CXR ordered today. 3) Take an additional 10 days of the Augmentin as directed. 4) Continue your routine meds otherwise. 5) Get your MRI scans tomorrow,as scheduled. 6) See me in 2 weeks and as needed.. Orders Orders (Selected) Outpatient Orders Ordered CMP: Office Visit Level 4 Est 03901: eGFR: Ordered (Exam Started) XR Chest 2 Views: Canceled MRI Spine Lumbar w/ Contrast: MRI Spine Thoracic w/ Contrast: XR Chest 2 Views: Future (On Hold) MRI Spine Lumbar w/ + w/o Contrast: MRI Spine Thoracic w/ + w/o Contrast: Prescriptions Prescribed amoxicillin-clavulanate 875 mg-125 mg oral tablet: 1 tabs, Oral, q12hr, for 10 days, 20 tabs, 0 Refill(s). Dx/Order Association Plan: Diagnosis: Asthma Comment: Ordered: Office Visit Level 4 Est 35831; 06/16/16 13:32:00 CDT, Pneumonia | Bone metastases | Multiple myeloma | Asthma | Oral thrush | Coronary artery disease | Hypercholesterolemia | Benign essential tremor Diagnosis: Benign essential tremor Comment: Ordered: Office Visit Level 4 Est 97797; 06/16/16 13:32:00 CDT, Pneumonia | Bone metastases | Multiple myeloma | Asthma | Oral thrush | Coronary artery disease | Hypercholesterolemia | Benign essential tremor Diagnosis: Bone metastases Comment: Ordered: CMP; Blood, Routine Collect, 06/16/16 13:31:00 CDT, Once , Stop date 06/16/16 13:31:00 CDT, Lab Collect, Coronary artery disease | Hypercholesterolemia | Bone metastases | Multiple myeloma Office Visit Level 4 Est 94734; 06/16/16 13:32:00 CDT, Pneumonia | Bone metastases | Multiple myeloma | Asthma | Oral thrush | Coronary artery disease | Hypercholesterolemia | Benign essential tremor Diagnosis: Coronary artery disease Comment: Ordered: CMP; Blood, Routine Collect, 06/16/16 13:31:00 CDT, Once , Stop date 06/16/16 13:31:00 CDT, Lab Collect, Coronary artery disease | Hypercholesterolemia | Bone metastases | Multiple myeloma Office Visit Level 4 Est 16324; 06/16/16 13:32:00 CDT, Pneumonia | Bone metastases | Multiple myeloma | Asthma | Oral thrush | Coronary artery disease | Hypercholesterolemia | Benign essential tremor Diagnosis: Hypercholesterolemia Comment: Ordered: CMP; Blood, Routine Collect, 06/16/16 13:31:00 CDT, Once , Stop date 06/16/16 13:31:00 CDT, Lab Collect, Coronary artery disease | Hypercholesterolemia | Bone metastases | Multiple myeloma Office Visit Level 4 Est 83224; 06/16/16 13:32:00 CDT, Pneumonia | Bone metastases | Multiple myeloma | Asthma | Oral thrush | Coronary artery disease | Hypercholesterolemia | Benign essential tremor Diagnosis: Multiple myeloma Comment: Ordered: CMP; Blood, Routine Collect, 06/16/16 13:31:00 CDT, Once , Stop date 06/16/16 13:31:00 CDT, Lab Collect, Coronary artery disease | Hypercholesterolemia | Bone metastases | Multiple myeloma Office Visit Level 4 Est 06977; 06/16/16 13:32:00 CDT, Pneumonia | Bone metastases | Multiple myeloma | Asthma | Oral thrush | Coronary artery disease | Hypercholesterolemia | Benign essential tremor Diagnosis: Oral thrush Comment: Ordered: Office Visit Level 4 Est [id number]; 06/16/16 13:32:00 CDT, Pneumonia | Bone metastases | Multiple myeloma | Asthma | Oral thrush | Coronary artery disease | Hypercholesterolemia | Benign essential tremor Diagnosis: Pneumonia Comment: Additional Orders: Comment: Ordered: amoxicillin-clavulanate 875 mg-125 mg oral tablet,1 tabs, Oral, q12hr, X 10 days, # 20 tabs, 0 Refill(s), Pharmacy: [facility] # [id number] End of Orders ."
--- OUTSIDE RECORDS SUMMARY | 2017-01-21 06:50 | XMS REPORT ---
Author Author Barb Grossman Organization [employer] Address Unknown Phone Unavailable Care Team Providers Care Nuclear Fuels Reclamation Engineer Name Role Phone Barb Grossman CP Unavailable Allergies No Known Allergies Problems No Known Problems Medications No Known Medications Results No Known Results Summary Purpose [employer] Submission
--- OUTSIDE RECORDS SUMMARY | 2017-01-21 06:51 | XMS REPORT | Continuity of Care Document ---
Author Author Eduardo [facility] Organization [facility] Address Unknown Phone Unavailable Support Name Relationship Address Phone JENNIFFER PARK FACS, MD Caregiver [address] [place] [address] [place] [phone] MIRTA GUERRIER MD Caregiver [address] [place] [address] [place] [phone] ANNA JETT Next Of Kin [address] [place] [address] Insurance Providers Payer Name Policy Number Subscriber Name Relationship [facility] [id number] Zarina Mortensen Self Medicare Part A Only [id number] Zarina Mortensen Self Advance Directives Directive Response Recorded Date/Time Advanced Directives Type Living Will DPOA for Healthcare 01/11/14 3:07pm Ordered Resuscitation Status Full Code 01/11/14 4:34pm Resuscitation Documents on File No 01/11/14 3:07pm Problems No known problems or medical conditions. Medications Medication Dose Route Sig Days/Qty Instructions Order Date Discontinued Date Status [Advair] 09/24/10 04/11/12 Discontinued Aspirin 81 Mg PO DAILY 09/24/10 04/08/12 Discontinued Simvastatin 40 Mg PO 09/24/10 04/08/12 Discontinued [Niaspan] 1,000 DAILY 09/24/10 04/11/12 Discontinued Rosuvastatin Calcium 20 Mg PO BEDTIME 04/08/12 Active Salmeterol Xinafoate/Fluticasone BEDTIME 04/11/12 Active Metoprolol Succinate 12.5 Mg PO BEDTIME 01/11/14 Active Omeprazole 20 Mg PO BEFORE BREAKFAST 01/11/14 Active Loratadine 10 Mg PO DAILY 01/12/14 Active Colesevelam HCl 1,875 Mg PO DAILY 06/08/14 Active Social History Social History Problem Response Recorded Date/Time Smoking Status Former smoker 01/12/2014 6:37am When did patient STOP smoking? 30 YEARS AGO 06/11/2014 9:29am Chewing Tobacco Status Y OCCASIONALLY 01/12/2014 6:37am Hx Substance Use No 06/11/2014 9:29am Hx Alcohol Use Y BEER WHEN GOLFING 06/11/2014 9:29am Has the pt used tobacco in the last 12 months Yes 06/11/2014 9:29am Hospital Discharge Instructions No hospital discharge instructions. Plan of Care No plan of care. Functional Status No functional status results. Allergies, Adverse Reactions, Alerts Allergen Type Severity Reaction Status Last Updated atorvastatin calcium Adverse Reaction Unknown GI DISTRESS Active 06/08/14 Theophylline Adverse Reaction Unknown GI DISTRESS Active 06/08/14 Aspirin Adverse Reaction Unknown GI DISTRESS Active 06/08/14 Immunizations Name Given Type Hx Influenza Vaccination Y 06/2013 Historical Hx Pneumococcal Vaccination Y WITHIN PAST 5 YEARS Historical Hx Influenza Vaccination Y 06/2013 Historical Vital Signs Acute Vital Signs Vital Response Date/Time Temperature (Fahrenheit) 97.5 deg F (96.8 - 99.1) Temperature (Calculated Celsius) 36.84721 degrees C (36.0 - 37.3) Temperature Source Temporal Pulse Rate (adult) 54 bpm (60 - 100) Respiratory Rate 16 breaths/min (10 - 20) O2 Sat by Pulse Oximetry 96 % (90 - 100) Oxygen Delivery Method Room Air Blood Pressure 131/77 mm Hg Blood Pressure Source Automatic Cuff Height 5 ft 8.5 in Weight 195 lb Body Mass Index 29.0 kg/m^2 Results Test Source Date Result Interp. Ref. Range Comments Activated Partial Thromboplast Time January 11, 2008 10:00am 26.5 SEC N 25 -36 Atypical/Reactive Lymphocytes January 11, 2008 10:00am 0.1 T/MM3 H 0-0 Band Neutrophils # April 11, 2012 1:50pm 0.3 T/MM3 - Band Neutrophils % April 11, 2012 1:50pm 8.0 % H 0-6 Basophils # (Auto) June 11, 2014 9:41am 0.0 T/MM3 N 0-0.2 COMMENT SCU WILL CALL Basophils # (Manual) January 11, 2008 10:00am 0.0 T/MM3 N 0-0.2 Basophils % (Manual) January 11, 2008 10:00am 0.0 % N 0-2 Basophils (%) (Auto) June 11, 2014 9:41am 1.0 % N 0-2 COMMENT SCU WILL CALL Eosinophils # (Auto) June 11, 2014 9:41am 0.1 T/MM3 N 0-0.5 COMMENT SCU WILL CALL Eosinophils # (Manual) January 11, 2008 10:00am 0.1 T/MM3 N 0-0.5 Eosinophils % (Manual) January 11, 2008 10:00am 2.0 % N 0-4 Eosinophils (%) (Auto) June 11, 2014 9:41am 4.2 % H 0-4 COMMENT SCU WILL CALL Hematocrit June 11, 2014 9:41am 40.5 % L 41-53 COMMENT SCU WILL CALL Hemoglobin June 11, 2014 9:41am 13.8 GM/DL N 13.5-17.5 COMMENT SCU WILL CALL Immature Granulocyte # (Auto) June 11, 2014 9:41am 0.00 T/MM3 N 0.00-0.03 COMMENT SCU WILL CALL Immature Granulocyte % (Auto) June 11, 2014 9:41am 0.0 % N 0.0-0.5 COMMENT SCU WILL CALL Lab Scanned Report December 10, 2010 11:06am LAB TEST FORM REQUEST [id number] - Lymphocytes # (Auto) June 11, 2014 9:41am 1.1 T/MM3 N 1-4.8 COMMENT SCU WILL CALL Lymphocytes # (Manual) April 11, 2012 1:50pm 0.8 T/MM3 L 1-4.8 Lymphocytes % (Manual) April 11, 2012 1:50pm 22.0 % L 23-45 Lymphocytes (%) (Auto) June 11, 2014 9:41am 36.2 % N 23-45 COMMENT SCU WILL CALL Mean Corpuscular Hemoglobin June 11, 2014 9:41am 32.3 UUG N 26-34 COMMENT SCU WILL CALL Mean Corpuscular Hemoglobin Concent June 11, 2014 9:41am 34.1 GM/DL N 31-37 COMMENT SCU WILL CALL Mean Corpuscular Volume June 11, 2014 9:41am 94.8 UM3 N 80-100 COMMENT SCU WILL CALL Mean Platelet Volume June 11, 2014 9:41am 9.5 UM3 N 9.4-12.4 COMMENT SCU WILL CALL Monocytes # (Auto) June 11, 2014 9:41am 0.2 T/MM3 N 0-0.8 COMMENT SCU WILL CALL Monocytes # (Manual) April 11, 2012 1:50pm 0.6 T/MM3 N 0-0.8 Monocytes % (Manual) April 11, 2012 1:50pm 17.0 % H 0-9.0 Monocytes (%) (Auto) June 11, 2014 9:41am 6.5 % N 0-9.0 COMMENT SCU WILL CALL Neutrophils # (Auto) June 11, 2014 9:41am 1.6 T/MM3 L 1.8-7.7 COMMENT SCU WILL CALL Neutrophils # (Manual) April 11, 2012 1:50pm 1.9 T/MM3 N 1.8-7.7 Neutrophils % (Manual) April 11, 2012 1:50pm 51.0 % N 33-66 Neutrophils (%) (Auto) June 11, 2014 9:41am 52.1 % N 33-66 COMMENT SCU WILL CALL Platelet Count June 11, 2014 9:41am 241 T/MM3 N 130-400 COMMENT SCU WILL CALL Prothromb Time International Ratio January 11, 2008 10:00am 1.02 N 0.79- 1.23 THERAPUTIC RANGE=2.00-3.00 FOR ANTI-THROMBOSIS THERAPUTIC RANGE=2.50- 3.50 FOR IMPLANTED VALVE RDW Standard Deviation June 11, 2014 9:41am 42.9 FL N 36.9-50.2 COMMENT SCU WILL CALL Reactive Lymphocytes January 11, 2008 10:00am 1.0 % H 0-0 Reactive Lymphocytes # April 11, 2012 1:50pm 0.1 T/MM3 H 0-0 Reactive Lymphocytes % April 11, 2012 1:50pm 2.0 % H 0-0 Red Blood Count June 11, 2014 9:41am 4.27 M/MM3 L 4.50-5.90 COMMENT SCU WILL CALL Troponin I August 22, 2010 11:55am 0.007 ng/ml N 0-0.[address] GUERRIER White Blood Count June 11, 2014 9:41am 3.1 T/MM3 L 4.5-11.0 COMMENT SCU WILL CALL Procedures Procedure Status Date Provider(s) Inguinal hernia repair completed 06/11/14 JENNIFFER PARK MD, FACS, CWS
--- OUTSIDE RECORDS SUMMARY | 2017-01-21 06:51 | XMS REPORT | Referral Summary ---
Author Author [facility] Organization [facility] Address Unknown Phone Unavailable Care Team Providers Care Risk Officer Name Role Phone Surekha Basurto Primary Care Physician [phone] Encounter VC Date(s): 08/13/16 - 08/13/16 [facility] [address] [place] [address] Discharge Disposition: 01-Home or Self Care Attending Physician: Burak Salgado MD Admitting Physician: Burak Salgado MD Vital Signs Most recent to 1 oldest [Reference Range]: Temperature Oral 37.1 degC [35.8-37.3 degC] (08/13/16 11:00 AM) Peripheral Pulse 81 bpm Rate [60-100 bpm] (08/13/16 11:00 AM) Respiratory Rate 20 br/min [14-20 br/min] (08/13/16 11:00 AM) Blood Pressure 156/87 mmHg [90-140/60-90 mmHg] *HI* (08/13/16 11:00 AM) SpO2 94 % (08/13/16 11:00 AM) Problem List Condition Effective Dates Status [...] BID, # 180 Each, 1 Refill(s), Pharmacy: [facility] Start Date: 01/17/16 Status: Ordered Advair Diskus 250 mcg-50 mcg inhalation powder 1 puffs, Inhalation, BID, 0 Refill(s) Start Date: 07/27/16 Status: Ordered albuterol CFC free 90 mcg/inh inhalation aerosol 1 puffs, Inhalation, QID, as needed for wheezing, # 18 g, 11 Refill(s), Pharmacy : [facility] #[id number] Start Date: 05/21/16 Status: Ordered Amitiza 24 mcg oral capsule 24 mcg 1 caps, Oral, BID, for constipation, # 60 caps, 11 Refill(s), Pharmacy: [facility] #[id number], 1 caps Oral BID,Instr:for constipation Start Date: 06/29/16 Status: Ordered Amitiza 24 mcg oral capsule 24 mcg 1 caps, Oral, BID, # 60 caps, 0 Refill(s) Start Date: 07/27/16 Status: Ordered Colace 100 mg oral capsule 100 mg 1 caps, Oral, BID, as needed for constipation, # 20 caps, 0 Refill(s) Start Date: 05/01/16 Status: Ordered Crestor 20 mg oral tablet 20 mg 1 tabs, Oral, Bedtime (once a day), # 90 tabs, 1 Refill(s), Pharmacy: [facility], 1 tabs Oral Bedtime (once a day) Start Date: 02/06/16 Status: Ordered [facility] 1 caps, Oral, qPM, as needed, 0 [...] BID, # 60 tabs, 11 Refill(s), Pharmacy: [facility] # [id number], 1 tabs Oral BID Start Date: 03/06/16 Status: Ordered fentaNYL 100 mcg/hr transdermal film, extended release 1 patches, TransDermal, q72hr, # 10 patches, 0 Refill(s) Start Date: 07/17/16 Status: Ordered LORazepam 0.5 mg oral tablet 0.5 mg, Oral, BID, as needed for anxiety, # 60 tabs, 0 Refill(s) Start Date: 07/28/16 Status: Ordered Milk of Magnesia 15 mL, [...] Daily, # 30 caps, 11 Refill(s), Pharmacy: [facility] # [id number], Bill to patient, 1 caps Oral Daily,x30 days Start Date: 01/29/16 Stop Date: 01/23/17 Status: Ordered Percocet 7.5/325 oral tablet 1-2 tabs, Oral, q4hr, as needed for pain, # 30 tabs, 0 Refill(s) Start Date: 07/13/16 Status: Ordered propranolol 10 mg oral tablet 10 mg 1 tabs, Oral, BID, # 60 tabs, 5 Refill(s), Pharmacy: [facility] # [id number], 1 tabs Oral BID Start Date: 06/15/16 [...] qPM, # 90 tabs, 3 Refill(s), Pharmacy: [facility] # [id number], 1 tabs Oral qPM Start Date: 03/11/16 Status: Ordered Velcade 3.5 mg injection 1.3 mg/m2, SubCutaneous, Wednesday, 0 Refill(s) Start Date: 04/23/16 Status: Ordered Welchol 625 mg, Oral, qPM, 0 Refill(s) Start Date: 04/10/15 Status: Ordered Zofran 4 mg, Oral, TID, as needed for nausea/vomiting, 0 Refill(s) Start Date: 04/27/16 Status: Ordered Results Hematology Most recent to 1 oldest [Reference Range]: WBC [4.8-10.8 3.1 10*3/uL 10*3/uL] *LOW* (08/13/16 6:20 AM) RBC [4.60-6.20] 3.26 *LOW* (08/13/16 6:20 AM) Hgb [14.0-18.0 10.7 gm/dL gm/dL] *LOW* (08/13/16 6:20 AM) Hct [42.0-52.0 %] 31.9 % *LOW* (08/13/16 6:20 AM) MCV [82.0-99.0 fL] 97.9 fL (08/13/16 6:20 AM) MCH [27.0-32.0 pg] 32.8 pg *HI* (08/13/16 6:20 AM) MCHC [32.0-36.0 33.5 gm/dL gm/dL] (08/13/16 6:20 AM) RDW [11.5-14.5 %] 15.5 % *HI* (08/13/16 6:20 AM) Platelet [150-400 260 10*3/uL 10*3/uL] (08/13/16 6:20 AM) MPV [9.4-12.3 fL] 8.9 fL *LOW* (08/13/16 6:20 AM) Neutrophils [51-75 97 % %] *HI* (08/13/16 6:20 AM) Band Man [0-8 %] 1 % (08/13/16 6:20 AM) Lymphocytes [20-46 2 % %] *LOW* (08/13/16 6:20 AM) Monocytes [4-11 %] 2 % *LOW* (08/13/16 6:20 AM) Eosinophils [0-4 %] 0 % (08/13/16 6:20 AM) Basophils [0-2 %] 0 % (08/13/16 6:20 AM) Neutro Absolute 3.04 10*3 [1.90-7.00 10*3] (08/13/16 6:20 AM) Lymph Absolute 0.00 10*3 [0.80-3.30 10*3] *LOW* (08/13/16 6:20 AM) [place] Absolute 0.06 10*3 [0.30-1.00 10*3] *LOW* (08/13/16 6:20 AM) Eos Absolute 0.01 10*3 [0.00-0.50 10*3] (08/13/16 6:20 AM) Baso Absolute 0.00 10*3 [0.00-0.20 10*3] (08/13/16 6:20 AM) Nucleated RBC 0.0 /100 WBC Automated [0 /100 (08/13/16 6:20 AM) WBC] Differential Reviewed (08/13/16 6:20 AM) Chemistry Most recent to 1 oldest [Reference Range]: Sodium Lvl [136-144 135 mEq/L mEq/L] *LOW* (08/13/16 6:20 AM) Potassium Lvl 3.6 mEq/L [3.6-5.1 mEq/L] (08/13/16 6:20 AM) Chloride [99-109 101 mEq/L mEq/L] (08/13/16 6:20 AM) CO2 [22-32 mEq/L] 28 mEq/L (08/13/16 6:20 AM) AGAP [3-20] 6 (08/13/16 6:20 AM) BUN [4-20 mg/dL] 9 mg/dL (08/13/16 6:20 AM) Glucose Lvl [70-100 117 mg/dL mg/dL] *HI* (08/13/16 6:20 AM) Creatinine Lvl 0.54 mg/dL [0.64-1.27 mg/dL] *LOW* (08/13/16 6:20 AM) eGFR [>60] >60 1 (08/13/16 6:20 AM) Calcium Lvl 8.5 mg/dL [8.6-10.0 mg/dL] *LOW* (08/13/16 6:20 AM) Albumin Lvl [3.5-4.8 2.9 gm/dL gm/dL] *LOW* (08/13/16 6:20 AM) Total Protein 6.0 gm/dL [6.1-7.9 gm/dL] *LOW* (08/13/16 6:20 AM) Globulin [1.9-4.3 3.1 gm/dL gm/dL] (08/13/16 6:20 AM) ALT [17-63 U/L] 10 U/L *LOW* (08/13/16 6:20 AM) AST [15-41 U/L] 14 U/L *LOW* (08/13/16 6:20 AM) Alk Phos [26-104 52 U/L U/L] (08/13/16 6:20 AM) Bili Total [0.2-1.2 1.0 mg/dL 2 mg/dL] (08/13/16 6:20 AM) LDH [98-192 U/L] 117 U/L (08/13/16 6:20 AM) Magnesium Lvl 1.7 mg/dL [1.8-2.5 mg/dL] *LOW* (08/13/16 6:20 AM) Uric Acid [4.8-8.7 3.8 mg/dL mg/dL] *LOW* (08/13/16 6:20 AM) Phosphorus [2.4-4.7 3.8 mg/dL 3 mg/dL] (08/13/16 6:20 AM) 1Result Comment: Multiply eGFR results by 1.21 for race. 2Result Comment: Naproxen, specifically the metabolite O-desmethylnaproxen, may cause spurious elevation in Total Bilirubin levels. 3Result Comment: High dosages of liposomal Amphotericin B (AmBisome) therapy or other drug preparations that use a liposomal envelope to facilitate drug delivery may cause falsely elevated results for phosphorus. 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 Insertion Dialysis Catheter (Right, Internal, 07/27/16 Jugular)1 Cardiac catheterisation2 2015 Pulmonary emboli3 2015 Esophagogastroduodenoscopy and biopsy4 06/10/15 Repair of inguinal hernia5 06/11/14 Colonoscopy6 01/12/14 Cholecystectomy 2011 Laparoscopic cholecystectomy 2012 Sigmoidoscopy 2009 Cystoscopy/laser vaporization 2008 Pelvic lymphadenectomy, bilateral 2007 Radiacl nerve - sparing retropubic 2008 prostatectomy [...] but still chews daily Assessment and Plan No data available for this section
--- OUTSIDE RECORDS SUMMARY | 2017-01-21 06:51 | XMS REPORT | Referral Summary ---
Author Author [facility] Organization [facility] Address Unknown Phone Unavailable Care Team Providers Care Insurance Sales Producer Name Role Phone Surekha Basurto Primary Care Physician [phone] Encounter VC Date(s): 07/02/16 - 07/02/16 [facility] [address] [place] [address] Discharge Disposition: 01-Home or Self Care Attending Physician: Burak Salgado MD Vital Signs No data available for this section Problem List Condition Effective Dates Status Health [...] Active hernia(Confirmed) Prostate 2008 Resolved cancer(Confirmed) Prostate 2008 Resolved cancer(Confirmed) Well adult Active exam(Confirmed) Microscopic [...] BID, # 180 Each, 1 Refill(s), Pharmacy: [facility] Start Date: 01/17/16 Status: Ordered albuterol CFC free 90 mcg/inh inhalation aerosol 1 puffs, Inhalation, QID, as needed for wheezing, # 18 g, 11 Refill(s), Pharmacy : [facility] #[id number] Start Date: 05/21/16 Status: Ordered Amitiza 24 mcg oral capsule 24 mcg 1 caps, Oral, BID, for constipation, # 60 caps, 11 Refill(s), Pharmacy: [facility] #[id number], 1 caps Oral BID,Instr:for constipation Start Date: 06/29/16 Status: Ordered clotrimazole 10 mg oral lozenge 10 mg 1 lozenges, Oral, 5x/Day, X 14 days, # 70 lozenges, 5 Refill(s), Pharmacy : [facility] #[id number], 1 lozenges Oral 5x/Day,x14 days Start Date: 05/07/16 Stop Date: 07/30/16 Status: Ordered Colace 100 mg oral capsule 100 mg 1 caps, Oral, BID, as needed for constipation, # 20 caps, 0 Refill(s) Start Date: 05/01/16 Status: Ordered Crestor 20 mg oral tablet 20 mg 1 tabs, Oral, Bedtime (once a day), # 90 tabs, 1 Refill(s), Pharmacy: [facility], 1 tabs Oral Bedtime (once a day) Start Date: 02/06/16 Status: Ordered [facility] 1 caps, Oral, qPM, as needed, [facility] [id number], 1 tabs Oral BID Start Date: 03/06/16 Status: Ordered fentaNYL 100 mcg/hr transdermal film, extended release 1 patches, TransDermal, q72hr, 0 Refill(s) Start Date: 05/12/16 Status: Ordered LORazepam 0.5 mg oral tablet 0.5 mg, Oral, BID, as needed for anxiety, # 60 tabs, 0 Refill(s) Start Date: 06/18/16 Status: Ordered Milk of Magnesia 15 mL, [...] [facility] [id number], Bill to patient, 1 caps Oral Daily,x30 days Start Date: 01/29/16 Stop Date: 01/23/17 Status: Ordered Kramer 10 mg-325 mg oral tablet 1 tabs, Oral, QID, Pain Moderate (4-6), # 120 tabs, 0 Refill(s) Start Date: 06/26/16 Stop Date: 07/26/16 Status: Ordered propranolol 10 mg oral tablet 10 mg 1 tabs, Oral, BID, # 60 tabs, 5 Refill(s), Pharmacy: [facility] # [id number], 1 tabs Oral BID Start Date: 06/15/16 [...] qPM, # 90 tabs, 3 Refill(s), Pharmacy: [facility] # [id number], 1 tabs Oral qPM Start Date: 03/11/16 Status: Ordered Velcade 3.5 mg injection 1.3 mg/m2, SubCutaneous, Wednesday, 0 Refill(s) Start Date: 04/23/16 Status: Ordered Welchol 625 mg, Oral, qPM, 0 Refill(s) Start Date: 04/10/15 Status: Ordered Zofran 4 mg, Oral, TID, as needed for nausea/vomiting, 0 Refill(s) Start Date: 04/27/16 Status: Ordered Results No data available for this section Immunizations Vaccine Date Refusal Reason tetanus/diphth/pertuss (Tdap) [...]
--- OUTSIDE RECORDS SUMMARY | 2017-01-21 06:54 | XMS REPORT | Referral Summary ---
Author Author [facility] Organization [facility] Address Unknown Phone Unavailable Care Team Providers Care Gold Blower Name Role Phone Surekha Basurto Primary Care Physician [phone] Encounter VC Date(s): 07/28/16 - 07/28/16 [facility] [address] [place] [address] [phone] Discharge Disposition: 01-Home or Self Care Attending Physician: Burak Salgado MD Admitting Physician: Burak Salgado MD Vital Signs Most recent to 1 oldest [Reference Range]: Temperature Oral 36.8 degC [35.8-37.3 degC] (07/28/16 6:45 AM) Peripheral Pulse 86 bpm Rate [60-100 bpm] (07/28/16 6:45 AM) Respiratory Rate 20 br/min [14-20 br/min] (07/28/16 6:45 AM) Blood Pressure 137/83 mmHg [90-140/60-90 mmHg] (07/28/16 6:45 AM) SpO2 96 % (07/28/16 6:45 AM) Problem List Condition Effective Dates Status [...] [facility] Start Date: 01/17/16 Status: Ordered Advair Diskus 250 mcg-50 mcg inhalation powder 1 puffs, Inhalation, BID, 0 Refill(s) Start Date: 07/27/16 Status: Ordered albuterol CFC free 90 mcg/inh inhalation aerosol 1 puffs, Inhalation, QID, as needed for wheezing, # 18 g, 11 Refill(s), Pharmacy : [facility] #[id number] Start Date: 05/21/16 Status: Ordered Amitiza 24 mcg oral capsule 24 mcg 1 caps, Oral, BID, for constipation, # 60 caps, 11 Refill(s), Pharmacy: [facility] #[id number], 1 caps Oral BID,Instr:for constipation Start Date: 06/29/16 Status: Ordered Amitiza 24 mcg oral capsule 24 mcg 1 caps, Oral, BID, # 60 caps, 0 Refill(s) Start Date: 07/27/16 Status: Ordered clotrimazole 10 mg oral lozenge 10 mg 1 lozenges, Oral, 5x/Day, X 14 days, # 70 lozenges, 5 Refill(s), Pharmacy : [facility] #[id number], 1 lozenges Oral 5x/Day,x14 days Start Date: [...] a day) Start Date: 02/06/16 Status: Ordered [facility] 1 caps, Oral, qPM, as needed, [...] BID, # 60 tabs, 11 Refill(s), Pharmacy: [facility] # [id number], 1 tabs Oral BID Start Date: 03/06/16 [...] Daily, # 30 caps, 11 Refill(s), Pharmacy: [facility] # [id number], Bill to patient, 1 caps Oral Daily,x30 days Start Date: 01/29/16 Stop Date: 01/23/17 Status: Ordered Percocet 7.5/325 oral tablet 1-2 tabs, Oral, q4hr, as needed for pain, # 30 tabs, 0 Refill(s) Start Date: 07/13/16 Status: Ordered propranolol 10 mg oral tablet 10 mg 1 tabs, Oral, BID, # 60 tabs, 5 Refill(s), Pharmacy: [facility] # [id number], 1 tabs Oral BID Start Date: 06/15/16 [...] qPM, # 90 tabs, 3 Refill(s), Pharmacy: [facility] # [id number], 1 tabs Oral qPM Start Date: 03/11/16 Status: Ordered Velcade 3.5 mg injection 1.3 mg/m2, SubCutaneous, Wednesday, 0 Refill(s) Start Date: 04/23/16 Status: Ordered Welchol 625 mg, Oral, qPM, 0 Refill(s) Start Date: 04/10/15 Status: Ordered Zofran 4 mg, Oral, TID, as needed for nausea/vomiting, 0 Refill(s) Start Date: 04/27/16 Status: Ordered Results Hematology Most recent to 1 oldest [Reference Range]: WBC [4.8-10.8 17.5 10*3/uL 10*3/uL] *HI* (07/28/16 1:25 PM) RBC [4.60-6.20] 3.46 *LOW* (07/28/16 1:25 PM) Hgb [14.0-18.0 11.0 gm/dL gm/dL] *LOW* (07/28/16 1:25 PM) Hct [42.0-52.0 %] 34.6 % *LOW* (07/28/16 1:25 PM) MCV [82.0-99.0 fL] 100.0 fL *HI* (07/28/16 1:25 PM) MCH [27.0-32.0 pg] 31.8 pg (07/28/16 1:25 PM) MCHC [32.0-36.0 31.8 gm/dL gm/dL] *LOW* (07/28/16 1:25 PM) RDW [11.5-14.5 %] 16.4 % *HI* (07/28/16 1:25 PM) Platelet [150-400 70 10*3/uL 10*3/uL] *LOW* (07/28/16 1:25 PM) MPV [9.4-12.3 fL] 9.4 fL (07/28/16 1:25 PM) Neutrophils [51-75 71 % %] (07/28/16 1:25 PM) Band Man [0-8 %] 18 % *HI* (07/28/16 1:25 PM) [place] Man [0-1 %] 2 % *HI* (07/28/16 1:25 PM) Lymphocytes [20-46 4 % %] *LOW* (07/28/16 1:25 PM) Abn Lymph Man 1 % (07/28/16 7:33 AM) Monocytes [4-11 %] 3 % *LOW* (07/28/16 1:25 PM) Eosinophils [0-4 %] 2 % (07/28/16 1:25 PM) Basophils [0-2 %] 0 % (07/28/16 1:25 PM) Neutro Absolute 15.58 10*3 [1.90-7.00 10*3] *HI* (07/28/16 1:25 PM) Lymph Absolute 0.70 10*3 [0.80-3.30 10*3] *LOW* (07/28/16 1:25 PM) [place] Absolute 0.53 10*3 [0.30-1.00 10*3] (07/28/16 1:25 PM) Eos Absolute 0.35 10*3 [0.00-0.50 10*3] (07/28/16 1:25 PM) Baso Absolute 0.00 10*3 [0.00-0.20 10*3] (07/28/16 1:25 PM) Toxic Gran Occasional *ABN* (07/28/16 1:25 PM) Dohle Bodies Occasional *ABN* (07/28/16 1:25 PM) Ovalocytes Occasional *ABN* (07/28/16 1:25 PM) Nucleated RBC 0.0 /100 WBC Automated [0 /100 (07/28/16 1:25 PM) WBC] Differential Scanned Slide (07/28/16 1:25 PM) Chemistry Most recent to 1 oldest [Reference Range]: Sodium Lvl [136-144 140 mEq/L mEq/L] (07/28/16 7:33 AM) Potassium Lvl 3.8 mEq/L [3.6-5.1 mEq/L] (07/28/16 7:33 AM) Chloride [99-109 106 mEq/L mEq/L] (07/28/16 7:33 AM) CO2 [22-32 mEq/L] 27 mEq/L (07/28/16 7:33 AM) AGAP [3-20] 7 (07/28/16 7:33 AM) BUN [4-20 mg/dL] 10 mg/dL (07/28/16 7:33 AM) Glucose Lvl [70-100 104 mg/dL mg/dL] *HI* (07/28/16 7:33 AM) Creatinine Lvl 0.60 mg/dL [0.64-1.27 mg/dL] *LOW* (07/28/16 7:33 AM) eGFR [>60] >60 1 (07/28/16 7:33 AM) Calcium Lvl 8.8 mg/dL [8.6-10.0 mg/dL] (07/28/16 7:33 AM) Magnesium Lvl 1.8 mg/dL [1.8-2.5 mg/dL] (07/28/16 7:33 AM) 1Result Comment: Multiply eGFR results by 1.21 for race. Blood Bank Results Most recent to 1 oldest [Reference Range]: ABO/Rh A POS (07/28/16 7:33 AM) Antibody Screen Tube NEG (07/28/16 7:33 AM) Immunizations Vaccine Date Refusal Reason tetanus/diphth/pertuss (Tdap) [...] Procedures Procedure Date Related Diagnosis Body Site Blood-derived hematopoietic progenitor cell 07/28/16 harvesting for transplantation, per collection; autologous Transplant preparation of hematopoietic 07/28/16 progenitor cells; cryopreservation and storage Transplant preparation of hematopoietic 07/28/16 progenitor cells; plasma (volume) depletion.. Insertion Dialysis Catheter (Right, Internal, 07/27/16 Jugular)1 Cardiac catheterisation2 2015 Pulmonary emboli3 2015 Esophagogastroduodenoscopy and biopsy4 06/10/15 Repair of inguinal hernia5 06/11/14 Colonoscopy6 01/12/14 Cholecystectomy 2012 Laparoscopic cholecystectomy 2012 Sigmoidoscopy 2009 Cystoscopy/laser vaporization 2008 Pelvic lymphadenectomy, bilateral 2008 Radiacl nerve - sparing retropubic 2008 prostatectomy Bone marrow biopsy 2004 Esophagogastroduodenoscopy [EGD] with closed 2003 biopsy Sigmoidoscopy 2004 Cardiac catheterization 2000 Coronary angiogram 2001 Flexible sigmoidoscopy 1998 Tympanostomy 1998 Repair of left TM 1970 Nasal polypectomy 1960 Cystoscopy 1auto-populated from documented surgical case 2mild CAD--Dr. Oliveira 3hospitalized in January 2016 for this 4EGD with biopsies from antrum via cold biopsy forceps technique as well as polypectomies x2 via cold biopsy forceps technique 5Left, with mesh 6Normal, repeat in 10 years Social History Social History Type Response Smoking Status Light tobacco smoker1, 2, 3 1quit chewing tobacco 5/1/16. 2Pt. states has not smoked in 30 years 3quit smoking 25 years ago, but still chews daily Assessment and Plan No data available for this section
--- OUTSIDE RECORDS SUMMARY | 2017-01-21 06:54 | XMS REPORT | Referral Summary ---
Author Author [facility] Medicine Organization [facility] Address Unknown Phone Unavailable Care Team Providers Care Apple Sorter Name Role Phone Surekha Basurto Primary Care Physician [phone] Encounter VC Date(s): 09/30/16 - 09/30/16 [facility] [address] [place] [phone] Discharge Diagnosis: Asthma, mild persistent Discharge Diagnosis: Hypomagnesemia Discharge Diagnosis: Paroxysmal atrial fibrillation Discharge Diagnosis: Metastatic cancer to bone Discharge Diagnosis: Nausea Discharge Diagnosis: Benign essential hypertension Discharge Diagnosis: Constipation Discharge Diagnosis: ASHLEY (generalized anxiety disorder) Discharge Diagnosis: Hypokalemia Discharge Diagnosis: Lower abdominal pain Discharge Diagnosis: CAD in [place] Discharge Diagnosis: Oral thrush Discharge Diagnosis: History of pulmonary embolism Discharge Diagnosis: Multiple myeloma Discharge Disposition: 01-Home or Self Care Attending Physician: Cortez Basurto MD Admitting Physician: Cortez Basurto MD Vital Signs Most recent to 1 oldest [Reference Range]: Temperature Tympanic 36.8 degC [36.6-38.1 degC] (09/30/16 7:34 AM) Peripheral Pulse 83 bpm Rate [60-100 bpm] (09/30/16 7:34 AM) Blood Pressure 145/80 mmHg [90-140/60-90 mmHg] *HI* (09/30/16 7:34 AM) SpO2 98 % (09/30/16 7:34 AM) Problem List Condition Effective Dates Status [...] routinely, # 18 g, 11 Refill(s), Pharmacy: [facility] #[id number] Start Date: 05/21/16 Status: Ordered Carafate 1 [...] BID, # 60 tabs, 11 Refill(s), Pharmacy: [facility] # [id number], 1 tabs Oral BID Start Date: 03/06/16 Status: Ordered fentaNYL 50 mcg/hr transdermal film, extended release 1 patches, Topical, q72hr, # 10 patches, 0 Refill(s) Start Date: 09/29/16 Status: Ordered Klor-Con M10 oral tablet, extended release 20 mEq 2 tabs, Oral, BID, # 120 tabs, 0 Refill(s), Pharmacy: [facility] # [id number], 2 tabs Oral BID,x30 days Start Date: [...] BID, # 60 tabs, 5 Refill(s), Pharmacy: [facility] # [id number], 1 tabs Oral BID Start Date: 06/15/16 Status: Ordered sertraline 25 mg, Oral, qPM, 0 Refill(s) Start Date: 03/23/16 Status: Ordered Singulair 10 mg oral tablet 10 mg 1 tabs, Oral, qPM, # 90 tabs, 3 Refill(s), Pharmacy: [facility] # [id number], 1 tabs Oral qPM Start Date: 03/11/16 Status: Ordered Zofran 8 mg, Oral, TID, as needed for nausea/vomiting, taking it twice a week, on average, 0 Refill(s) Start Date: 04/27/16 Status: Ordered Results Urinalysis Most recent to 1 oldest [Reference Range]: UA Color Yellow (09/30/16 8:00 AM) UA Appear Clear (09/30/16 8:00 AM) UA pH [5.0-8.0] 6.0 (09/30/16 8:00 AM) UA Leuk Est Negative [Negative] (09/30/16 8:00 AM) UA Nitrite Negative [Negative] (09/30/16 8:00 AM) UA Protein Negative [Negative] (09/30/16 8:00 AM) UA Glucose Negative [Negative] (09/30/16 8:00 AM) UA Ketones Negative [Negative] (09/30/16 8:00 AM) UA Urobilinogen 0.2 mg/dL [<1.0 mg/dL] (09/30/16 8:00 AM) UA Bili [Negative] Negative (09/30/16 8:00 AM) UA Blood [Negative] Trace *ABN* (09/30/16 8:00 AM) UA Spec Grav 1.019 [1.003-1.030] (09/30/16 8:00 AM) Type Clean Catch (09/30/16 8:00 AM) Immunizations Given and Recorded Vaccine Date Status [...] Patient Education Author: Cortez Basurto MD Date: 09/30 Family Medicine Asthma Attack Prevention Although there is no way to prevent asthma from starting, you can take steps to control the disease and reduce its symptoms. Learn about your asthma and how to control it. Take an active role to control your asthma by working with your health care provider to create and follow an asthma action plan. An asthma action plan guides you in: Taking your medicines properly. Avoiding things that set off your asthma or make your asthma worse ( asthma triggers). Tracking your level of asthma control. Responding to worsening asthma. Seeking emergency care when needed. To track your asthma, keep records of your symptoms, check your peak flow number using a handheld device that shows how well air moves out of your lungs ( peak flow meter), and get regular asthma checkups. WHAT ARE SOME WAYS TO PREVENT AN ASTHMA ATTACK? Take medicines as directed by your health care provider. Keep track of your asthma symptoms and level of control. With your health care provider, write a detailed plan for taking medicines and managing an asthma attack. Then be sure to follow your action plan. Asthma is an ongoing condition that needs regular monitoring and treatment. Identify and avoid asthma triggers. Many outdoor allergens and irritants (such as pollen, mold, cold air, and air pollution) can trigger asthma attacks. Find out what your asthma triggers are and take steps to avoid them. Monitor your breathing. Learn to recognize warning signs of an attack, such as coughing, wheezing, or shortness of breath. Your lung function may decrease before you notice any signs or symptoms, so regularly measure and record your peak airflow with a home peak flow meter. Identify and treat attacks early. If you act quickly, you are less likely to have a severe attack. You will also need less medicine to control your symptoms. When your peak flow measurements decrease and alert you to an upcoming attack, take your medicine as instructed and immediately stop any activity that may have triggered the attack. If your symptoms do not improve, get medical help. Pay attention to increasing quick-relief inhaler use. If you find yourself relying on your quick-relief inhaler, your asthma is not under control. See your health care provider about adjusting your treatment. WHAT CAN MAKE MY SYMPTOMS WORSE? A number of common things can set off or make your asthma symptoms worse and cause temporary increased inflammation of your airways. Keep track of your asthma symptoms for several weeks, detailing all the environmental and emotional factors that are linked with your asthma. When you have an asthma attack, go back to your asthma diary to see which factor, or combination of factors, might have contributed to it. Once you know what these factors are, you can take steps to control many of them. If you have allergies and asthma, it is important to take asthma prevention steps at home. Minimizing contact with the substance to which you are allergic will help prevent an asthma attack. Some triggers and ways to avoid these triggers are: Animal Dander: Some people are allergic to the flakes of skin or dried saliva from animals with fur or feathers. There is no such thing as a hypoallergenic dog or cat breed. All dogs or cats can cause allergies, even if they don't shed. Keep these pets out of your home. If you are not able to keep a pet outdoors, keep the pet out of your bedroom and other sleeping areas at all times, and keep the door closed. Remove carpets and furniture covered with cloth from your home. If that is not possible, keep the pet away from fabric-covered furniture and carpets. Dust Mites: Many people with asthma are allergic to dust mites. Dust mites are tiny bugs that are found in every home in mattresses, pillows, carpets, fabric-covered furniture, bedcovers, clothes, stuffed toys, and other fabric-covered items. Cover your mattress in a special dust-proof cover. Cover your pillow in a special dust-proof cover, or wash the pillow each week in hot water. Water must be hotter than 130 F (54.4 C) to kill dust mites. Cold or warm water used with detergent and bleach can also be effective. Wash the sheets and blankets on your bed each week in hot water. Try not to sleep or lie on cloth-covered cushions. Call ahead when traveling and ask for a smoke-free hotel room. Bring your own bedding and pillows in case the hotel only supplies feather pillows and down comforters, which may contain dust mites and cause asthma symptoms. Remove carpets from your bedroom and those laid on concrete, if you can. Keep stuffed toys out of the bed, or wash the toys weekly in hot water or cooler water with detergent and bleach. Cockroaches: Many people with asthma are allergic to the droppings and remains of cockroaches. Keep food and garbage in closed containers. Never leave food out. Use poison baits, traps, powders, gels, or paste (for example, boric acid ). If a spray is used to kill cockroaches, stay out of the room until the odor goes away. Indoor Mold: Fix leaky faucets, pipes, or other sources of water that have mold around them. Clean floors and moldy surfaces with a fungicide or diluted bleach. Avoid using humidifiers, vaporizers, or swamp coolers. These can spread molds through the air. Pollen and Outdoor Mold: When pollen or mold spore counts are high, try to keep your windows closed. Stay indoors with windows closed from late morning to afternoon. Pollen and some mold spore counts are highest at that time. Ask your health care provider whether you need to take anti-inflammatory medicine or increase your dose of the medicine before your allergy season starts. Other Irritants to Avoid: Tobacco smoke is an irritant. If you smoke, ask your health care provider how you can quit. Ask family members to quit smoking, too. Do not allow smoking in your home or car. If possible, do not use a wood-burning stove, kerosene heater, or fireplace. Minimize exposure to all sources of smoke, including incense, candles, fires, and fireworks. Try to stay away from strong odors and sprays, such as perfume, talcum powder, hair spray, and paints. Decrease humidity in your home and use an indoor air cleaning device. Reduce indoor humidity to below 60%. Dehumidifiers or central air conditioners can do this. Decrease house dust exposure by changing furnace and air cooler filters frequently. Try to have someone else vacuum for you once or twice a week. Stay out of rooms while they are being vacuumed and for a short while afterward. If you vacuum, use a dust mask from a hardware store, a double-layered or microfilter vacuum high pressure cleaner bag, or a vacuum high pressure cleaner with a HEPA filter. Sulfites in foods and beverages can be irritants. Do not drink beer or wine or eat dried fruit, processed potatoes, or shrimp if they cause asthma symptoms. Cold air can trigger an asthma attack. Cover your nose and mouth with a scarf on cold or windy days. Several health conditions can make asthma more difficult to manage, including a runny nose, sinus infections, reflux disease, psychological stress, and sleep apnea. Work with your health care provider to manage these conditions. Avoid close contact with people who have a respiratory infection such as a cold or the flu, since your asthma symptoms may get worse if you catch the infection. Wash your hands thoroughly after touching items that may have been handled by people with a respiratory infection. Get a flu shot every year to protect against the flu virus, which often makes asthma worse for days or weeks. Also get a pneumonia shot if you have not previously had one. Unlike the flu shot, the pneumonia shot does not need to be given yearly. Medicines: Talk to your health care provider about whether it is safe for you to take aspirin or non-steroidal anti-inflammatory medicines (NSAIDs). In a small number of people with asthma, aspirin and NSAIDs can cause asthma attacks. These medicines must be avoided by people who have known aspirin-sensitive asthma. It is important that people with aspirin-sensitive asthma read labels of all jvqq-bof-bbuokst medicines used to treat pain, colds, coughs, and fever. Beta-blockers and LITA inhibitors are other medicines you should discuss with your health care provider. HOW CAN I FIND OUT WHAT I AM ALLERGIC TO? Ask your asthma health care provider about allergy skin testing or blood testing (the RAST test) to identify the allergens to which you are sensitive. If you are found to have allergies, the most important thing to do is to try to avoid exposure to any allergens that you are sensitive to as much as possible. Other treatments for allergies, such as medicines and allergy shots ( immunotherapy) are available. CAN I EXERCISE? Follow your health care provider's advice regarding asthma treatment before exercising. It is important to maintain a regular exercise program, but vigorous exercise or exercise in cold, humid, or dry environments can cause asthma attacks, especially for those people who have exercise-induced asthma. This information is not intended to replace advice given to you by your health care provider. Make sure you discuss any questions you have with your health care provider. Document Released: 08/18/2010 Document Revised: 09/04/2014 Document Reviewed: [employer] Interactive Patient Education 2016 [employer] No follow up information was provided. Extracted from: Title: multiple problems Author: Cortez Basurto MD Date: 09/30/16 Impression and Plan Diagnosis Lower abdominal pain (UWN79-KN R10.30, Discharge, Medical). Nausea (JAM24-RS R11.0, Discharge, Medical). Asthma, mild persistent (QLW22-QX J45.30, Discharge, Medical). CAD in [place] (VYU18-FP I25.10, Discharge, Medical). Constipation (TJM01-UF K59.00, Discharge, Medical). ASHLEY (generalized anxiety disorder) (EUU78-WF F41.1, Discharge, Medical). Oral thrush (PML91-CC B37.0, Discharge, Medical). History of pulmonary embolism (HDU30-SZ Z86.711, Discharge, Medical). Paroxysmal atrial fibrillation (XCL01-LE I48.0, Discharge, Medical). Hypokalemia (MFC83-YZ E87.6, Discharge, Medical). Metastatic cancer to bone (UGL74-XU C79.51, Discharge, Medical). Multiple myeloma (VEL74-CH C90.00, Discharge, Medical). Hypomagnesemia (AAP90-CC E83.42, Discharge, Medical). Benign essential hypertension (LLJ56-LK I10, Discharge, Medical). Plan: 1) UA ordered today. 2) Potassium ordered: take 20 meq BID. 3) Get lab in 5 days. 4) Get a UA today. 5) See Dr. Delacruz for further evaluation, and possibly scopes of your stomach/colon due to increasing abdominal pain over the past 4-6 months. 6) See me for a recheck of your multiple problems in 2-3 weeks, and as needed. 7) Continue your current meds otherwise.. Orders Orders (Selected) Outpatient Orders Ordered Office Visit Level 5 Est 05847: Completed Routine Urinalysis: Future (On Hold) BMP: Magnesium Level: Prescriptions Prescribed Klor-Con M10 oral tablet, extended release: 20 mEq=2 tabs, Oral, BID, for 30 days, 120 tabs, 0 Refill(s). Dx/Order Association Plan: Diagnosis: Asthma, mild persistent Comment: Ordered: Office Visit Level 5 Est [id number]; 09/30/16 14:29:00 [employer]OD AND BEVERAGE CHECKER, Multiple myeloma | Metastatic cancer to bone | Lower abdominal pain | Oral thrush | Nausea | Benign essential hypertension | CAD in [place] | Asthma , mild persistent | Constipation | ASHLEY (generalized anxiety disorder) | Hy... Diagnosis: Benign essential hypertension Comment: Ordered: Office Visit Level 5 Est [id number]; 09/30/16 14:29:00 FOOD AND BEVERAGE CHECKER, Multiple myeloma | Metastatic cancer to bone | Lower abdominal pain | Oral thrush | Nausea | Benign essential hypertension | CAD in [place] | Asthma , mild persistent | Constipation | ASHLEY (generalized anxiety disorder) | Hy... Diagnosis: CAD in [place] Comment: Ordered: Office Visit Level 5 Est [id number]; 09/30/16 14:29:00 FOOD AND BEVERAGE CHECKER, Multiple myeloma | Metastatic cancer to bone | Lower abdominal pain | Oral thrush | Nausea | Benign essential hypertension | CAD in [place] | Asthma , mild persistent | Constipation | ASHLEY (generalized anxiety disorder) | Hy... Diagnosis: Constipation Comment: Ordered: Office Visit Level 5 Est [id number]; 09/30/16 14:29:00 FOOD AND BEVERAGE CHECKER, Multiple myeloma | Metastatic cancer to bone | Lower abdominal pain | Oral thrush | Nausea | Benign essential hypertension | CAD in [place] | Asthma , mild persistent | Constipation | ASHLEY (generalized anxiety disorder) | Hy... Diagnosis: ASHLEY (generalized anxiety disorder) Comment: Ordered: Office Visit Level 5 Est 80138; 09/30/16 14:29:00 FOOD AND BEVERAGE CHECKER, Multiple myeloma | Metastatic cancer to bone | Lower abdominal pain | Oral thrush | Nausea | Benign essential hypertension | CAD in [place] | Asthma , mild persistent | Constipation | ASHLEY (generalized anxiety disorder) | Hy... Diagnosis: History of pulmonary embolism Comment: Diagnosis: Hypokalemia Comment: Ordered: Office Visit Level 5 Est 66895; 09/30/16 14:29:00 FOOD AND BEVERAGE CHECKER, Multiple myeloma | Metastatic cancer to bone | Lower abdominal pain | Oral thrush | Nausea | Benign essential hypertension | CAD in [place] | Asthma , mild persistent | Constipation | ASHLEY (generalized anxiety disorder) | Hy... Diagnosis: Hypomagnesemia Comment: Ordered: Office Visit Level 5 Est [id number]; 09/30/16 14:29:00 FOOD AND BEVERAGE CHECKER, Multiple myeloma | Metastatic cancer to bone | Lower abdominal pain | Oral thrush | Nausea | Benign essential hypertension | CAD in [place] | Asthma , mild persistent | Constipation | ASHLEY (generalized anxiety disorder) | Hy... Diagnosis: Lower abdominal pain Comment: Ordered: Office Visit Level 5 Est [id number]; 09/30/16 14:29:00 FOOD AND BEVERAGE CHECKER, Multiple myeloma | Metastatic cancer to bone | Lower abdominal pain | Oral thrush | Nausea | Benign essential hypertension | CAD in [place] | Asthma , mild persistent | Constipation | ASHLEY (generalized anxiety disorder) | Hy... Other status: Routine Urinalysis; Urine, Clean Catch, Routine collect, 09/30/16 7:41:00 FOOD AND BEVERAGE CHECKER, Once, Stop date 09/30/16 7:41:00 FOOD AND BEVERAGE CHECKER, Nurse Collect Non-Blood, Lower abdominal pain (Completed) Diagnosis: Metastatic cancer to bone Comment: Ordered: Office Visit Level 5 Est [id number]; 09/30/16 14:29:00 FOOD AND BEVERAGE CHECKER, Multiple myeloma | Metastatic cancer to bone | Lower abdominal pain | Oral thrush | Nausea | Benign essential hypertension | CAD in [place] | Asthma , mild persistent | Constipation | ASHLEY (generalized anxiety disorder) | Hy... Diagnosis: Multiple myeloma Comment: Ordered: Office Visit Level 5 Est [id number]; 09/30/16 14:29:00 FOOD AND BEVERAGE CHECKER, Multiple myeloma | Metastatic cancer to bone | Lower abdominal pain | Oral thrush | Nausea | Benign essential hypertension | CAD in [place] | Asthma , mild persistent | Constipation | ASHLEY (generalized anxiety disorder) | Hy... Diagnosis: Nausea Comment: Ordered: Office Visit Level 5 Est [id number]; 09/30/16 14:29:00 FOOD AND BEVERAGE CHECKER, Multiple myeloma | Metastatic cancer to bone | Lower abdominal pain | Oral thrush | Nausea | Benign essential hypertension | CAD in [place] | Asthma , mild persistent | Constipation | ASHLEY (generalized anxiety disorder) | Hy... Diagnosis: Oral thrush Comment: Ordered: Office Visit Level 5 Est [id number]; 09/30/16 14:29:00 FOOD AND BEVERAGE CHECKER, Multiple myeloma | Metastatic cancer to bone | Lower abdominal pain | Oral thrush | Nausea | Benign essential hypertension | CAD in [place] | Asthma , mild persistent | Constipation | ASHLEY (generalized anxiety disorder) | Hy... Diagnosis: Paroxysmal atrial fibrillation Comment: Diagnosis: Hypomagnesemia Comment: Diagnosis: Hypokalemia Comment: Additional Orders: Comment: Ordered: Carafate 1 g/10 mL oral suspension,1 g 10 mL, Oral, QIDACHS, 0 Refill(s) Ordered: Klor-Con M10 oral tablet, extended release,20 mEq 2 tabs, Oral, BID, # 120 tabs, 0 Refill(s), Pharmacy: [facility] #[id number], 2 tabs Oral BID,x30 days Ordered: NexIUM 40 mg oral delayed release capsule,40 mg 1 caps, Oral, Daily, # 30 caps, 0 Refill(s) Ordered: acyclovir 800 mg oral tablet,800 mg 1 tabs, Oral, BID, 0 Refill(s) Ordered: clotrimazole 10 mg oral lozenge,10 mg 1 lozenges, Oral, QID, 0 Refill(s) Ordered: magnesium hydroxide 8% oral suspension,2.4 g 30 mL, Oral, Bedtime (once a day), as needed for constipation, # 300 mL, 0 Refill(s) End of Orders ."
--- OUTSIDE RECORDS SUMMARY | 2017-01-21 06:54 | XMS REPORT | Referral Summary ---
Author Author [facility] Organization [facility] Address Unknown Phone Unavailable Care Team Providers Care Process Coordinator Name Role Phone Surekha Basurto Primary Care Physician [phone] Encounter VC Date(s): 10/14/16 - 10/14/16 [facility] [address] [place] [address] NIELS García [id number]- Discharge Diagnosis: LLQ pain Discharge Diagnosis: Loose stools Discharge Diagnosis: Abdominal cramping Discharge Diagnosis: Chronic RLQ pain Discharge Disposition: -Home or Self Care Attending Physician: Rizwan Delacruz MD Admitting Physician: Rizwan Delacruz MD Referring Physician: Cortez Basurto MD Vital Signs Most recent to 1 oldest [Reference Range]: Temperature Tympanic 37 degC [36.6-38.1 degC] (10/14/16 9:08 AM) Peripheral Pulse 92 bpm Rate [60-100 bpm] (10/14/16 9:08 AM) Blood Pressure 132/78 mmHg [90-140/60-90 mmHg] (10/14/16 9:08 AM) SpO2 99 % (10/14/16 9:08 AM) Problem List Condition Effective Dates Status [...] routinely, # 18 g, 11 Refill(s), Pharmacy: [facility] #[id number] Start Date: 05/21/16 Status: Ordered Bentyl 10 mg oral capsule 10 mg 1 caps, Oral, QID, # 56 caps, 1 Refill(s), Pharmacy: [facility] # [id number], 1 caps Oral QID,x14 days Start Date: 10/14/16 Stop Date: 11/11/16 Status: Ordered Carafate 1 g/10 mL oral suspension 1 g 10 mL, Oral, QIDACHS, 0 Refill(s) Start Date: 09/30/16 Status: Ordered clotrimazole 10 mg oral lozenge 10 mg 1 lozenges, Oral, QID, 0 Refill(s) Start Date: 09/30/16 Status: Ordered DuoNeb 0.5 mg-2.5 mg/3 mL inhalation solution 3 mL, NEB, QID, takes it 2-3 times daily, on average, 0 Refill(s) Start Date: 03/23/16 Status: Ordered Eliquis 5 mg oral tablet 5 mg 1 tabs, Oral, BID, # 60 tabs, 11 Refill(s), Pharmacy: [facility] # [id number], 1 tabs Oral BID Start Date: 03/06/16 Status: Ordered fentaNYL 50 mcg/hr transdermal film, extended release 1 patches, Topical, q72hr, # 10 patches, 0 Refill(s) Start Date: 09/29/16 Status: Ordered Klor-Con M10 oral tablet, extended release 20 mEq 2 tabs, Oral, BID, # 120 tabs, 0 Refill(s), Pharmacy: [facility] # [id number], 2 tabs Oral BID,x30 days Start Date: 09/30/16 Stop Date: 10/30/16 Status: Ordered LORazepam 0.5 mg oral tablet 0.5 mg 1 tabs, Oral, TID, as needed for anxiety, only takes it once a day, on average, 0 Refill(s) Start Date: 08/31/16 Status: Ordered LORazepam 0.5 mg oral tablet 0.5 mg 1 tabs, Oral, TID, as needed for anxiety, # 30 tabs, 1 Refill(s) Start Date: 10/09/16 Status: Ordered magnesium hydroxide 8% oral suspension [...] BID, # 60 tabs, 5 Refill(s), Pharmacy: [facility] # [id number], 1 tabs Oral BID Start Date: 06/15/16 Status: Ordered sertraline 25 mg, Oral, qPM, 0 Refill(s) Start Date: 03/23/16 Status: Ordered Singulair 10 mg oral tablet 10 mg 1 tabs, Oral, qPM, # 90 tabs, 3 Refill(s), Pharmacy: [facility] # [id number], 1 tabs Oral qPM Start Date: 03/11/16 [...] Extracted from: Title: Ambulatory Patient Education Author: Rizwan Delacruz MD Date: 10/14 No follow up information was provided. Extracted from: Title: Office Visit Note Author: Rizwan Delacruz MD Date: 10/14/16 Assessment/Plan 1.LLQ pain Ordered: Office Visit Level 3 Est 20773 XR Abdomen Complete w/ Decub/Erect 2.Chronic RLQ pain Ordered: Office Visit Level 3 Est 63546 XR Abdomen Complete w/ Decub/Erect 3.Loose stools Ordered: Office Visit Level 3 Est 71484 XR Abdomen Complete w/ Decub/Erect 4.Abdominal cramping Ordered: dicyclomine, 10 mg 1 caps, Oral, QID, # 56 caps, 1 Refill(s), Pharmacy: [facility] #[id number], 1 caps Oral QID,x14 days Office Visit Level 3 Est 68289 XR Abdomen Complete w/ Decub/Erect Plan:Obtain abdominal x-ray to rule outpotential obstipation,initiate empiric treatment for suspectedirritable bowel syndrome. Continue to follow clinical standpoint. I did review the patient's chart includingoffice note performed by his PCP from October 02, 2016. I also spent a fair amount of time reviewing his electronic medical record. I did see that the patienthad acolonoscopyon January 12, 2014 that was within normal limitsand a repeat colonoscopy was recommended at a 10 year interval. Reviewing the hospital system I did discover that he had underwenta recent CT scan of his abdomen pelvis on May 22, 2016that did not reveal anyacute disease process seen within the abdomen or pelvis. Did have some postoperativechangesnotedfollowing his prostatectomy and cholecystectomy. Patientdidhave some lytic lesions noted consistent with his known history for multiple myeloma. I informed the patientthat I hadcouple of thoughts in regards to his differential diagnosis of his underlying etiology for his abdominal pain. Given his narcotic usage and the fact that he is having "liquidy stools"I wonder whether or not he could be having a component of obstipationwhere he has developed tiburcio hard stool within his colon and is passing liquid he stool around this"hard stool". We will pain some plain x-rays todayfor further evaluation to rule out potential obstipation as the etiology for his crampy abdominal painand liquidy stools. I informed the patient his symptoms are also suggestive of irritable bowel syndrome and the fact that he does describe somewhat of a history of alternating constipation and diarrhea, history for crampy abdominal pain that is alleviated after the process of defecation. It was my recommendation that we go ahead and treat him empirically is that he has IBS. E prescription for dicyclominegiven as above. I informed the patient that I did not feel that he needed repeat colonoscopygiven the fact that he had a normal colonoscopyabout 2 and half years ago. I donot feel that we need to proceed with repeat CT scan given the fact that his had a normal CT scan did not reveal any acute disease processabout 3-4 months ago. I did review his plain films sent it does appear that he has a fair amount ofstool present within his ascending colon region. We'll have nursing staff informed patient to takea "flex sig prep"/Mag citrate. Patient was to follow-up if the above measures did not result in any improvementof his discomfort. Otherwise patient returned to PCP for ongoing care.
--- OUTSIDE RECORDS SUMMARY | 2017-01-21 06:55 | XMS REPORT | Referral Summary ---
Author Author [facility] Organization [facility] Address Unknown Phone Unavailable Care Team Providers Care Electrician Front Name Role Phone Surekha Basurto Primary Care Physician [phone] Encounter VC Date(s): 08/21/16 - 08/31/16 [facility] [address] [place] [address] Discharge Diagnosis: History of autologous stem cell transplant Discharge Diagnosis: Pancytopenia due to chemotherapy Discharge Disposition: 01-Home or Self Care Attending Physician: Burak Salgado MD Admitting Physician: Burak Salgado MD Vital Signs Most recent to 1 oldest [Reference Range]: Temperature Oral 36.7 degC [35.8-37.3 degC] (08/31/16 11:00 AM) Peripheral Pulse 90 bpm Rate [60-100 bpm] (08/31/16 11:00 AM) Heart Rate Monitored 106 bpm [60-100 bpm] *HI* (08/30/16 8:57 PM) Respiratory Rate 16 br/min [14-20 br/min] (08/31/16 11:00 AM) Blood Pressure 136/86 mmHg [90-140/60-90 mmHg] (08/31/16 11:00 AM) Pulse Rate [60-100 100 bpm bpm] (08/31/16 9:29 AM) SpO2 93 % (08/31/16 11:00 AM) Problem List Condition Effective Dates [...] Active theophylline tachycardia Active 1Nausea/vomitting Medications acyclovir 200 mg/5 mL oral suspension 800 mg 20 mL, Oral, BID, 0 Refill(s) Start Date: 08/31/16 Status: Ordered Advair Diskus 250 mcg-50 mcg inhalation powder 1 puffs, Inhalation, BID, 0 Refill(s) Start Date: 07/27/16 Status: Ordered albuterol CFC free 90 mcg/inh inhalation aerosol 1 puffs, Inhalation, QID, as needed for wheezing, # 18 g, 11 Refill(s), Pharmacy : [facility] #[id number] Start Date: 05/21/16 Status: Ordered Dulcolax Laxative See Instructions, 1 tablet daily as needed for constipation, 0 Refill(s) Start Date: 06/05/16 Status: Ordered DuoNeb 0.5 mg-2.5 mg/3 mL inhalation solution 3 mL, NEB, QID, 0 Refill(s) Start Date: 03/23/16 Status: Ordered Eliquis 5 mg oral tablet 5 mg 1 tabs, Oral, BID, # 60 tabs, 11 Refill(s), Pharmacy: [facility] # [id number], 1 tabs Oral BID Start Date: 03/06/16 Status: Ordered fentaNYL 100 mcg/hr transdermal film, extended release 1 patches, TransDermal, q72hr, # 10 patches, 0 Refill(s) Start Date: 07/17/16 Status: Ordered loperamide 2 mg oral capsule 2 mg 1 caps, Oral, q4hr, Diarrhea/Loose Stools, 0 Refill(s) Start Date: 08/31/16 Status: Ordered LORazepam 0.5 mg oral tablet 0.5 mg 1 tabs, Oral, QID, Anxiety, 0 Refill(s) Start Date: 08/31/16 Status: Ordered MiraLax oral powder for reconstitution 17 g, Oral, Daily, as needed for Constipation, dissolve in water before taking, # 527 g, 0 Refill(s) Start Date: 03/18/16 Status: Ordered Percocet 7.5/325 oral tablet 1-2 tabs, Oral, q4hr, as needed for pain, # 30 tabs, 0 Refill(s) Start Date: 07/13/16 Status: Ordered propranolol 10 mg oral tablet 10 mg 1 tabs, Oral, BID, # 60 tabs, 5 Refill(s), Pharmacy: [facility] # [id number], 1 tabs Oral BID Start Date: 06/15/16 Status: Ordered sertraline 25 mg, Oral, qPM, 0 Refill(s) Start Date: 03/23/16 Status: Ordered Singulair 10 mg oral tablet 10 mg 1 tabs, Oral, qPM, # 90 tabs, 3 Refill(s), Pharmacy: [facility] # [id number], 1 tabs Oral qPM Start Date: 03/11/16 Status: Ordered Zofran 4 mg, Oral, TID, as needed for nausea/vomiting, 0 Refill(s) Start Date: 04/27/16 Status: Ordered Results Hematology Most recent to 1 oldest [Reference Range]: WBC [4.8-10.8 5.1 10*3/uL 10*3/uL] (08/31/16 4:14 AM) RBC [4.60-6.20] 2.77 *LOW* (08/31/16 4:14 AM) Hgb [14.0-18.0 8.9 gm/dL gm/dL] *LOW* (08/31/16 4:14 AM) Hct [42.0-52.0 %] 27.3 % *LOW* (08/31/16 4:14 AM) MCV [82.0-99.0 fL] 98.6 fL (08/31/16 4:14 AM) MCH [27.0-32.0 pg] 32.1 pg *HI* (08/31/16 4:14 AM) MCHC [32.0-36.0 32.6 gm/dL gm/dL] (08/31/16 4:14 AM) RDW [11.5-14.5 %] 16.0 % *HI* (08/31/16 4:14 AM) Platelet [150-400 75 10*3/uL 10*3/uL] *LOW* (08/31/16 4:14 AM) MPV [9.4-12.3 fL] 10.0 fL (08/31/16 4:14 AM) Neutrophils [51-75 64 % %] (08/31/16 4:14 AM) Band Man [0-8 %] 5 % (08/31/16 4:14 AM) [place] Man [0-1 %] 4 % *HI* (08/31/16 4:14 AM) Myelo Man [-1-0 %] 4 % *HI* (08/31/16 4:14 AM) Promyelo Man [-1-0 1 % %] *HI* (08/31/16 4:14 AM) Lymphocytes [20-46 14 % %] *LOW* (08/31/16 4:14 AM) Abn Lymph Man 1 % (08/31/16 4:14 AM) Monocytes [4-11 %] 7 % (08/31/16 4:14 AM) Eosinophils [0-4 %] 0 % (08/31/16 4:14 AM) Basophils [0-2 %] 0 % (08/31/16 4:14 AM) Neutro Absolute 3.52 10*3 [1.90-7.00 10*3] (08/31/16 4:14 AM) Lymph Absolute 0.77 10*3 [0.80-3.30 10*3] *LOW* (08/31/16 4:14 AM) [place] Absolute 0.36 10*3 [0.30-1.00 10*3] (08/31/16 4:14 AM) Eos Absolute 0.00 10*3 [0.00-0.50 10*3] (08/31/16 4:14 AM) Baso Absolute 0.00 10*3 [0.00-0.20 10*3] (08/31/16 4:14 AM) Toxic Gran Occasional *ABN* (08/31/16 4:14 AM) Dohle Bodies Occasional *ABN* (08/27/16 4:56 AM) Polychrom Occasional *ABN* (08/31/16 4:14 AM) Ovalocytes Occasional *ABN* (08/31/16 4:14 AM) Schistocyte Occasional *ABN* (08/28/16 4:48 AM) Nucleated RBC 1.5 /100 WBC Automated [0 /100 (08/31/16 4:14 AM) WBC] Differential Reviewed (08/31/16 4:14 AM) Chemistry Most recent to 1 oldest [Reference Range]: Sodium Lvl [136-144 140 mEq/L mEq/L] (08/31/16 4:14 AM) Potassium Lvl 4.1 mEq/L [3.6-5.1 mEq/L] (08/31/16 4:14 AM) Chloride [99-109 107 mEq/L mEq/L] (08/31/16 4:14 AM) CO2 [22-32 mEq/L] 28 mEq/L (08/31/16 4:14 AM) AGAP [3-20] 5 (08/31/16 4:14 AM) BUN [4-20 mg/dL] 5 mg/dL (08/31/16 4:14 AM) Glucose Lvl [70-100 113 mg/dL mg/dL] *HI* (08/31/16 4:14 AM) Creatinine Lvl 0.57 mg/dL [0.64-1.27 mg/dL] *LOW* (08/31/16 4:14 AM) eGFR [>60] >60 1 (08/31/16 4:14 AM) Calcium Lvl 8.6 mg/dL [8.6-10.0 mg/dL] (08/31/16 4:14 AM) Albumin Lvl [3.5-4.8 2.5 gm/dL gm/dL] *LOW* (08/31/16 4:14 AM) Total Protein 5.7 gm/dL [6.1-7.9 gm/dL] *LOW* (08/31/16 4:14 AM) Globulin [1.9-4.3 3.2 gm/dL gm/dL] (08/31/16 4:14 AM) ALT [17-63 U/L] 10 U/L *LOW* (08/31/16 4:14 AM) AST [15-41 U/L] 12 U/L *LOW* (08/31/16 4:14 AM) Alk Phos [26-104 65 U/L U/L] (08/31/16 4:14 AM) Bili Total [0.2-1.2 0.4 mg/dL 2 mg/dL] (08/31/16 4:14 AM) Magnesium Lvl 1.9 mg/dL [1.8-2.5 mg/dL] (08/31/16 4:14 AM) Lactic Acid Lvl 0.8 mEq/L [0.5-2.2 mEq/L] (08/21/16 12:08 PM) 1Result Comment: Multiply eGFR results by 1.21 for race. 2Result Comment: Naproxen, specifically the metabolite O-desmethylnaproxen, may cause spurious elevation in Total Bilirubin levels. Blood Bank Results Most recent to 1 oldest [Reference Range]: ABO/Rh A POS (08/21/16 12:08 PM) Antibody Screen Tube NEG (08/21/16 12:08 PM) Microbiology Reports TEST: Blood Culture1 STATUS: Auth (Verified) BODY SITE: Arm, Left SOURCE: Blood COLLECTED DATE/TIME: 08/21/16 12:09 PM Blood Culture No growth after 5 days of incubation. TEST: Blood Culture2 STATUS: Auth (Verified) BODY SITE: Tunneled CVL Cath SOURCE: Blood COLLECTED DATE/TIME: 08/21/16 12:08 PM Blood Culture No growth after 5 days of incubation. INTERPRETIVE DATA 1Volume of blood: 15 to 20 ml 2Volume of blood: 15 to 20 ml Immunizations Given and Recorded Vaccine Date Status [...] closed 2004 biopsy Sigmoidoscopy 2004 Cardiac catheterization 2001 Coronary angiogram 2000 Flexible sigmoidoscopy 1998 Tympanostomy [...]
--- OUTSIDE RECORDS SUMMARY | 2017-01-21 06:55 | XMS REPORT | Referral Summary ---
Author Author [facility] Organization [facility] Address Unknown Phone Unavailable Care Team Providers Care Flow Manager Name Role Phone Surekha Basurto Primary Care Physician [phone] Encounter VC Date(s): 09/25/16 - 09/25/16 [facility] [address] [place] [address] [phone] Discharge Disposition: 01-Home or Self Care Attending Physician: Burak Salgado MD Admitting Physician: Burak Salgado MD Vital Signs No [...] # 18 g, 11 Refill(s), Pharmacy : [facility] #[id number] Start Date: 05/21/16 Status: Ordered Dulcolax Laxative See Instructions, 1 tablet daily as needed for constipation, 0 Refill(s) Start Date: 06/05/16 Status: Ordered DuoNeb 0.5 mg-2.5 mg/3 mL inhalation solution 3 mL, NEB, QID, 0 Refill(s) Start Date: 03/23/16 Status: Ordered Eliquis 5 mg oral tablet 5 mg 1 tabs, Oral, BID, # 60 tabs, 11 Refill(s), Pharmacy: [facility] # [id number], 1 tabs Oral BID Start Date: 03/06/16 [...] BID, # 60 tabs, 5 Refill(s), Pharmacy: [facility] # [id number], 1 tabs Oral BID Start Date: 06/15/16 Status: Ordered sertraline 25 mg, Oral, qPM, 0 Refill(s) Start Date: 03/23/16 Status: Ordered Singulair 10 mg oral tablet 10 mg 1 tabs, Oral, qPM, # 90 tabs, 3 Refill(s), Pharmacy: [facility] # [id number], 1 tabs Oral qPM Start Date: 03/11/16 [...]
--- OUTSIDE RECORDS SUMMARY | 2017-01-21 06:56 | XMS REPORT | Referral Summary ---
Author Author [facility] Organization [facility] Address Unknown Phone Unavailable Care Team Providers Care Quality Assurance Tester Name Role Phone Surekha Basurto Primary Care Physician [phone] Encounter Date(s): 10/20/16 - 10/20/16 [facility] [address] [place] [address]- Discharge Diagnosis: Multiple myeloma Discharge Diagnosis: Constipation due to opioid therapy Discharge Diagnosis: Anemia Discharge Diagnosis: History of pulmonary embolism Discharge Diagnosis: Oral thrush Discharge Diagnosis: Orthostatic hypotension Discharge Diagnosis: Benign essential hypertension Discharge Diagnosis: Benign essential tremor Discharge Diagnosis: ASHLEY (generalized anxiety disorder) Discharge Diagnosis: Asthma, mild persistent Discharge Diagnosis: Generalized abdominal pain Discharge Disposition: 01-Home or Self Care Attending Physician: Cortez Basurto MD Admitting Physician: Cortez Basurto MD Vital Signs Most recent to 1 oldest [Reference Range]: Temperature Tympanic 36.8 degC [36.6-38.1 degC] (10/20/16 7:43 AM) Peripheral Pulse 77 bpm Rate [60-100 bpm] (10/20/16 7:43 AM) SpO2 99 % (10/20/16 7:43 AM) Problem List Condition Effective Dates Status [...] routinely, # 18 g, 11 Refill(s), Pharmacy: [facility] #[id number] Start Date: 05/21/16 Status: Ordered Bentyl 10 mg oral capsule 10 mg 1 caps, Oral, QID, # 56 caps, 1 Refill(s), Pharmacy: [facility] # [id number], 1 caps Oral QID,x14 days Start Date: 10/14/16 Stop Date: 11/11/16 Status: Ordered Carafate 1 g/10 mL oral suspension 1 g 10 mL, Oral, TID, 0 Refill(s) Start Date: 09/30/16 Status: Ordered clotrimazole 10 mg oral lozenge 10 mg 1 lozenges, Oral, BID, as needed for thrush, 0 Refill(s) Start Date: 09/30/16 Status: Ordered DuoNeb 0.5 mg-2.5 mg/3 mL inhalation solution 3 mL, NEB, QID, takes it 2-3 times daily, on average, 0 Refill(s) Start Date: 03/23/16 Status: Ordered Eliquis 5 mg oral tablet 5 mg 1 tabs, Oral, BID, # 60 tabs, 11 Refill(s), Pharmacy: [facility] # [id number], 1 tabs Oral BID Start Date: 03/06/16 Status: Ordered fentaNYL 50 mcg/hr transdermal film, extended release 1 patches, Topical, q72hr, # 10 patches, 0 Refill(s) Start Date: 09/29/16 Status: Ordered Klor-Con M10 oral tablet, extended release 20 mEq 2 tabs, Oral, BID, # 120 tabs, 0 Refill(s), Pharmacy: [facility] # [id number], 2 tabs Oral BID,x30 days Start Date: [...] 1 tabs, Oral, QID, as needed for low back pain, 4 tabs used in the past week., # 30 tabs, 0 Refill(s) Start Date: 07/13/16 Status: Ordered predniSONE 10 mg oral tablet See Instructions, 4 tabs QD X 2d, then 3 tabs QD X 2d, then 2 tabs QD X 2d, then 1 tab QD X 2d., # 20 tabs, 0 Refill(s), Pharmacy: [facility] #[id number] , 4 tabs QD X 2d, then 3 tabs QD X 2d, then 2 tabs QD X 2d, then 1 tab QD X 2d. Start Date: 10/20/16 Stop Date: 10/28/16 Status: Ordered propranolol 10 mg oral tablet 10 mg 1 tabs, Oral, BID, # 60 tabs, 5 Refill(s), Pharmacy: [facility] # [id number], 1 tabs Oral BID Start Date: 06/15/16 Status: Ordered Revlimid 10 mg oral capsule 10 mg 1 caps, Oral, Daily, 1 QD X 21 d, off 7 days, then repeat cycle, # 30 caps , 0 Refill(s) Start Date: 10/20/16 Status: Ordered sertraline 25 mg, Oral, qPM, 0 Refill(s) Start Date: 03/23/16 Status: Ordered Singulair 10 mg oral tablet 10 mg 1 tabs, Oral, qPM, # 90 tabs, 3 Refill(s), Pharmacy: [facility] # [id number], 1 tabs Oral qPM Start Date: 03/11/16 Status: Ordered Zofran 8 mg, Oral, TID, as needed for nausea/vomiting, taking it twice a week, on average, 0 Refill(s) Start Date: 04/27/16 Status: Ordered Results Hematology Most recent to 1 oldest [Reference Range]: WBC [5.0-10.0 4.6 10*3/uL 10*3/uL] *LOW* (10/20/16 7:54 AM) RBC [3.70-5.20] 3.92 (10/20/16 7:54 AM) Hgb [12.0-16.0 13.0 gm/dL gm/dL] (10/20/16 7:54 AM) Hct [40.0-54.0 %] 38.9 % *LOW* (10/20/16 7:54 AM) MCV [80.0-96.0 fL] 99.2 fL *HI* (10/20/16 7:54 AM) MCH [26.0-34.0 pg] 33.2 pg (10/20/16 7:54 AM) MCHC [32.0-36.0 33.4 gm/dL gm/dL] (10/20/16 7:54 AM) RDW [0.0-14.5 %] 13.6 % (10/20/16 7:54 AM) Platelet [150-400 137 10*3/uL 10*3/uL] *LOW* (10/20/16 7:54 AM) MPV [8.8-14.8 fL] 9.5 fL (10/20/16 7:54 AM) Neutrophils [50-70 72 % %] *HI* (10/20/16 7:54 AM) Lymphocytes [20-40 15 % %] *LOW* (10/20/16 7:54 AM) Monocytes [4-8 %] 9 % *HI* (10/20/16 7:54 AM) Eosinophils [0-6 %] 5 % (10/20/16 7:54 AM) Basophils [0-2 %] 0 % (10/20/16 7:54 AM) Neutro Absolute 3.31 [2.50-7.00] (10/20/16 7:54 AM) Lymph Absolute 0.67 [1.00-4.00] *LOW* (10/20/16 7:54 AM) [place] Absolute 0.40 [0.20-0.80] (10/20/16 7:54 AM) Eos Absolute 0.22 [0.00-0.60] (10/20/16 7:54 AM) Baso Absolute 0.01 [0.00-0.30] (10/20/16 7:54 AM) Chemistry Most recent to 1 oldest [Reference Range]: Sodium Venous 140 mmol/L [136-144 mmol/L] (10/20/16 7:54 AM) Potassium Venous 3.9 mmol/L 1 [3.6-5.1 mmol/L] (10/20/16 7:54 AM) Calcium Ionized 1.21 mmol/L Venous [1.19-1.41 (10/20/16 7:54 AM) mmol/L] Total CO2 Venous 29 mmol/L [25-29 mmol/L] (10/20/16 7:54 AM) Glucose Venous 98 mg/dL [70-100 mg/dL] (10/20/16 7:54 AM) BUN Venous [4-20] 13 (10/20/16 7:54 AM) Creatinine Venous 0.6 mg/dL [0.7-1.2 mg/dL] *LOW* (10/20/16 7:54 AM) Venous CL [99-109 101 mmol/L mmol/L] (10/20/16 7:54 AM) 1Result Comment: This test was performed on a whole blood specimen. The presence or absence of hemolysis cannot be assessed. Hemolysis can falsely elevate potassium levels. Normals are for venous specimens only. Immunizations Given and Recorded Vaccine Date Status [...] Patient Education Author: Cortez Basurto MD Date: Allergy Asthma, Adult Asthma is a recurring [...] Smoke. Air pollutants such as dust, household mobile sales expert, hair sprays, aerosol sprays, paint fumes, strong [...] later. Symptoms include: Wheezing. Excessive nighttime or metal drill press operator coughing. Frequent or severe coughing with a [...] hardware store, a double-layered or microfilter vacuum cocoa bean cleaner bag, or a vacuum cocoa bean cleaner with a HEPA filter. Replace carpet [...] from clear or white to yellow, green, andrade, or bloody. You have any problems that [...] Released: 08/30/2006 Document Revised: 09/20/2015 Document Reviewed: [employer] Patient Education 2016 [employer] No follow up information was provided. Extracted from: Title: several problems Author: Cortez Basurto MD Date: 10/20/16 Impression and Plan Diagnosis Anemia (GMK24-OS D64.9, Discharge, Medical). Asthma, mild persistent (MWM19-XY J45.30, Discharge, Medical). ASHLEY (generalized anxiety disorder) (VNT64-PW F41.1, Discharge, Medical). Multiple myeloma (YGF23-PI C90.00, Discharge, Medical). Benign essential tremor (FER64-LM G25.0, Discharge, Medical). Benign essential hypertension (MVT73-OS I10, Discharge, Medical). History of pulmonary embolism (OYY35-JW Z86.711, Discharge, Medical). Oral thrush (LXB11-SX B37.0, Discharge, Medical). Orthostatic hypotension (VKO24-TJ I95.1, Discharge, Medical). Generalized abdominal pain (EGV32-LT R10.84, Discharge, Medical). Constipation due to opioid therapy (MXJ22-XH K59.03, Discharge, Medical). Plan: 1) Try stopping the Propranolol and the Dicyclomine, since they may be contributing to your problems with asthma and dizziness. You may use them if the benefits outweighs the risks. 2) STAT lab ordered today. 3) Continue your other meds. 4) Drink more Pedialyte and Gatoraid. 5) See me in 2 weeks and as needed. 6) Take Prednisone as directed. 7) Get enough rest.. Orders Orders (Selected) Outpatient Orders Ordered Office Visit Level 5 Est 10037: Completed CBC w/ Differential: Metabolic Panel i-STAT: Prescriptions Prescribed predniSONE 10 mg oral tablet: See Instructions, 4 tabs QD X 2d, then 3 tabs QD X 2d, then 2 tabs QD X 2d, then 1 tab QD X 2d., 20 tabs, 0 Refill(s). Dx/Order Association Plan: Diagnosis: Anemia Comment: Ordered: Office Visit Level 5 Est 34385; 10/20/16 7:28:00 H[employer]ORIC [employer]ING AND [employer]STUME [employer]KER, Orthostatic hypotension | Generalized abdominal pain | Anemia | Asthma, mild persistent | Benign essential hypertension | Benign essential tremor | Constipation due to opioid therapy | ASHLEY (generalized anxiety disorder) | Multipl... Other status: CBC w/ Differential; Blood, Stat Collect, 10/20/16 7 :46:00 [employer], Once, Stop date 10/20/16 7:46:00 [employer], Lab Collect, Anemia | Asthma, mild persistent | Generalized abdominal pain (Completed) Diagnosis: Asthma, mild persistent Comment: Ordered: Office Visit Level 5 Est 16602; 10/20/16 7:28:00 [employer]ER, Orthostatic hypotension | Generalized abdominal pain | Anemia | Asthma, mild persistent | Benign essential hypertension | Benign essential tremor | Constipation due to opioid therapy | ASHLEY (generalized anxiety disorder) | Multipl... Other status: CBC w/ Differential; Blood, Stat Collect, 10/20/16 7 :46:00 [employer]OR[employer]ER, Once, Stop date 10/20/16 7:46:00 [employer], Lab Collect, Anemia | Asthma, mild persistent | Generalized abdominal pain (Completed) Diagnosis: Benign essential hypertension Comment: Ordered: Office Visit Level 5 Est 01876; 10/20/16 7:28:00 [employer], Orthostatic hypotension | Generalized abdominal pain | Anemia | Asthma, mild persistent | Benign essential hypertension | Benign essential tremor | Constipation due to opioid therapy | ASHLEY (generalized anxiety disorder) | Multipl... Other status: Metabolic Panel i-STAT; Blood, Stat Collect, 7:46:00 [employer], Once, Stop date 10/20/16 7:46:00 [employer], Lab Collect, Benign essential hypertension | Benign essential tremor | Generalized abdominal pain | Orthostatic hypotension (Completed) Diagnosis: Benign essential tremor Comment: Ordered: Office Visit Level 5 Est 97640; 10/20/16 7:28:00 [employer]OR[employer]ER, Orthostatic hypotension | Generalized abdominal pain | Anemia | Asthma, mild persistent | Benign essential hypertension | Benign essential tremor | Constipation due to opioid therapy | ASHLEY (generalized anxiety disorder) | Multipl... Other status: Metabolic Panel i-STAT; Blood, Stat Collect, 7:46:00 H[employer]OR[employer]KER, Once, Stop date 10/20/16 7:46:00 [employer], Lab Collect, Benign essential hypertension | Benign essential tremor | Generalized abdominal pain | Orthostatic hypotension (Completed) Diagnosis: Constipation due to opioid therapy Comment: Ordered: Office Visit Level 5 Est 64635; 10/20/16 7:28:00 H[employer]OR[employer]KER, Orthostatic hypotension | Generalized abdominal pain | Anemia | Asthma, mild persistent | Benign essential hypertension | Benign essential tremor | Constipation due to opioid therapy | ASHLEY (generalized anxiety disorder) | Multipl... Diagnosis: ASHLEY (generalized anxiety disorder) Comment: Ordered: Office Visit Level 5 Est 39595; 10/20/16 7:28:00 [employer]ER, Orthostatic hypotension | Generalized abdominal pain | Anemia | Asthma, mild persistent | Benign essential hypertension | Benign essential tremor | Constipation due to opioid therapy | ASHLEY (generalized anxiety disorder) | Multipl... Diagnosis: Generalized abdominal pain Comment: Ordered: Office Visit Level 5 Est 72431; 10/20/16 7:28:00 H[employer]OR[employer]KER, Orthostatic hypotension | Generalized abdominal pain | Anemia | Asthma, mild persistent | Benign essential hypertension | Benign essential tremor | Constipation due to opioid therapy | ASHLEY (generalized anxiety disorder) | Multipl... Other status: Metabolic Panel i-STAT; Blood, Stat Collect, 7:46:00 H[employer]ORIC [employer]KER, Once, Stop date 10/20/16 7:46:00 H[employer]OR[employer]KER, Lab Collect, Benign essential hypertension | Benign essential tremor | Generalized abdominal pain | Orthostatic hypotension (Completed) CBC w/ Differential; Blood, Stat Collect, 7:46:00 HISTORIC [employer]KER, Once, Stop date 10/20/16 7:46:00 H[employer], Lab Collect, Anemia | Asthma, mild persistent | Generalized abdominal pain (Completed) Diagnosis: History of pulmonary embolism Comment: Ordered: Office Visit Level 5 Est 73107; 10/20/16 7:28:00 H[employer]ER, Orthostatic hypotension | Generalized abdominal pain | Anemia | Asthma, mild persistent | Benign essential hypertension | Benign essential tremor | Constipation due to opioid therapy | ASHLEY (generalized anxiety disorder) | Multipl... Diagnosis: Multiple myeloma Comment: Ordered: Office Visit Level 5 Est 86771; 10/20/16 7:28:00 H[employer]OR[employer]KER, Orthostatic hypotension | Generalized abdominal pain | Anemia | Asthma, mild persistent | Benign essential hypertension | Benign essential tremor | Constipation due to opioid therapy | ASHLEY (generalized anxiety disorder) | Multipl... Diagnosis: Oral thrush Comment: Ordered: Office Visit Level 5 Est 34749; 10/20/16 7:28:00 H[employer]OR[employer]ER, Orthostatic hypotension | Generalized abdominal pain | Anemia | Asthma, mild persistent | Benign essential hypertension | Benign essential tremor | Constipation due to opioid therapy | ASHLEY (generalized anxiety disorder) | Multipl... Diagnosis: Orthostatic hypotension Comment: Ordered: Office Visit Level 5 Est 22294; 10/20/16 7:28:00 H[employer]OR[employer]ER, Orthostatic hypotension | Generalized abdominal pain | Anemia | Asthma, mild persistent | Benign essential hypertension | Benign essential tremor | Constipation due to opioid therapy | ASHLEY (generalized anxiety disorder) | Multipl... Other status: Metabolic Panel i-STAT; Blood, Stat Collect, 7:46:00 HISTORIC [employer]ER, Once, Stop date 10/20/16 7:46:00 H[employer]OR[employer], Lab Collect, Benign essential hypertension | Benign essential tremor | Generalized abdominal pain | Orthostatic hypotension (Completed) Additional Orders: Comment: Ordered: Revlimid 10 mg oral capsule,10 mg 1 caps, Oral, Daily, 1 QD X 21 d, off 7 days, then repeat cycle, # 30 caps, 0 Refill(s) Ordered: predniSONE 10 mg oral tablet,See Instructions, 4 tabs QD X 2d, then 3 tabs QD X 2d, then 2 tabs QD X 2d, then 1 tab QD X 2d., # 20 tabs, 0 Refill(s), Pharmacy: [facility] #[id number], 4 tabs QD X 2d, then 3 tabs QD X 2d, then 2 tabs QD X 2d, then 1 tab QD X 2d. End of Orders ."
--- OUTSIDE RECORDS SUMMARY | 2017-01-21 06:56 | XMS REPORT | Referral Summary ---
Author Author [facility] Organization [facility] Address Unknown Phone Unavailable Care Team Providers Care Armored Transport Service Manager Name Role Phone Surekha Basurto Primary Care Physician [phone] Encounter VC Date(s): 07/28/16 - 07/29/16 [facility] [address] [place] [address] Discharge Disposition: 01-Home or Self Care Attending Physician: Burak Salgado MD Admitting Physician: Burak Salgado MD Vital Signs Most recent to 1 oldest [Reference Range]: Temperature Oral 36.7 degC [35.8-37.3 degC] (07/29/16 6:34 AM) Peripheral Pulse 86 bpm Rate [60-100 bpm] (07/28/16 6:45 AM) Heart Rate Monitored 105 bpm [60-100 bpm] *HI* (07/29/16 6:34 AM) Respiratory Rate 18 br/min [14-20 br/min] (07/29/16 6:34 AM) Blood Pressure 117/79 mmHg [90-140/60-90 mmHg] (07/29/16 6:34 AM) SpO2 92 % (07/29/16 6:34 AM) Problem List Condition Effective Dates Status [...] BID, # 180 Each, 1 Refill(s), Pharmacy: [facility] Start Date: 01/17/16 Status: Ordered Advair Diskus 250 mcg-50 mcg inhalation powder 1 puffs, Inhalation, BID, 0 Refill(s) Start Date: 07/27/16 Status: Ordered albuterol CFC free 90 mcg/inh inhalation aerosol 1 puffs, Inhalation, QID, as needed for wheezing, # 18 g, 11 Refill(s), Pharmacy : [facility] #[id number] Start Date: 05/21/16 Status: Ordered Amitiza 24 mcg oral capsule 24 mcg 1 caps, Oral, BID, for constipation, # 60 caps, 11 Refill(s), Pharmacy: [facility] #[id number], 1 caps Oral BID,Instr:for constipation Start Date: 06/29/16 Status: Ordered Amitiza 24 mcg oral capsule 24 mcg 1 caps, Oral, BID, # 60 caps, 0 Refill(s) Start Date: 07/27/16 Status: Ordered clotrimazole 10 mg oral lozenge 10 mg 1 lozenges, Oral, 5x/Day, X 14 days, # 70 lozenges, 5 Refill(s), Pharmacy : [facility] #[id number], 1 lozenges Oral 5x/Day,x14 days Start Date: 05/07/16 Stop Date: 07/30/16 Status: Ordered Colace 100 mg oral capsule 100 mg 1 caps, Oral, BID, as needed for constipation, # 20 caps, 0 Refill(s) Start Date: 05/01/16 Status: Ordered Crestor 20 mg oral tablet 20 mg 1 tabs, Oral, Bedtime (once a day), # 90 tabs, 1 Refill(s), Pharmacy: [facility], 1 tabs Oral Bedtime (once a day) Start Date: 02/06/16 Status: Ordered [facility] 1 caps, Oral, qPM, [...] BID, # 60 tabs, 11 Refill(s), Pharmacy: [facility] # [id number], 1 tabs Oral BID Start Date: 03/06/16 [...] Daily, # 30 caps, 11 Refill(s), Pharmacy: [facility] # [id number], Bill to patient, 1 caps Oral Daily,x30 days Start Date: 01/29/16 Stop Date: 01/23/17 Status: Ordered Percocet 7.5/325 oral tablet 1-2 tabs, Oral, q4hr, as needed for pain, # 30 tabs, 0 Refill(s) Start Date: 07/13/16 Status: Ordered propranolol 10 mg oral tablet 10 mg 1 tabs, Oral, BID, # 60 tabs, 5 Refill(s), Pharmacy: [facility] # [id number], 1 tabs Oral BID Start Date: 06/15/16 [...] qPM, # 90 tabs, 3 Refill(s), Pharmacy: [facility] # [id number], 1 tabs Oral qPM Start Date: 03/11/16 Status: Ordered Velcade 3.5 mg injection 1.3 mg/m2, SubCutaneous, Wednesday, 0 Refill(s) Start Date: 04/23/16 Status: Ordered Welchol 625 mg, Oral, qPM, 0 Refill(s) Start Date: 04/10/15 Status: Ordered Zofran 4 mg, Oral, TID, as needed for nausea/vomiting, 0 Refill(s) Start Date: 04/27/16 Status: Ordered Results Hematology Most recent to 1 oldest [Reference Range]: WBC [4.8-10.8 22.6 10*3/uL 10*3/uL] *HI* (07/29/16 12:40 PM) RBC [4.60-6.20] 3.36 *LOW* (07/29/16 12:40 PM) Hgb [14.0-18.0 10.5 gm/dL gm/dL] *LOW* (07/29/16 12:40 PM) Hct [42.0-52.0 %] 32.9 % *LOW* (07/29/16 12:40 PM) MCV [82.0-99.0 fL] 97.9 fL (07/29/16 12:40 PM) MCH [27.0-32.0 pg] 31.3 pg (07/29/16 12:40 PM) MCHC [32.0-36.0 31.9 gm/dL gm/dL] *LOW* (07/29/16 12:40 PM) RDW [11.5-14.5 %] 15.8 % *HI* (07/29/16 12:40 PM) Platelet [150-400 39 10*3/uL 10*3/uL] *LOW* (07/29/16 12:40 PM) MPV [9.4-12.3 fL] 9.0 fL *LOW* (07/29/16 12:40 PM) Neutrophils [51-75 68 % %] (07/29/16 12:40 PM) Band Man [0-8 %] 25 % *HI* (07/29/16 12:40 PM) [place] Man [0-1 %] 1 % (07/29/16 12:40 PM) Lymphocytes [20-46 3 % %] *LOW* (07/29/16 12:40 PM) Abn Lymph Man 1 % (07/28/16 7:33 AM) Monocytes [4-11 %] 2 % *LOW* (07/29/16 12:40 PM) Eosinophils [0-4 %] 1 % (07/29/16 12:40 PM) Basophils [0-2 %] 0 % (07/29/16 12:40 PM) Neutro Absolute 21.02 10*3 [1.90-7.00 10*3] *HI* (07/29/16 12:40 PM) Lymph Absolute 0.68 10*3 [0.80-3.30 10*3] *LOW* (07/29/16 12:40 PM) [place] Absolute 0.45 10*3 [0.30-1.00 10*3] (07/29/16 12:40 PM) Eos Absolute 0.23 10*3 [0.00-0.50 10*3] (07/29/16 12:40 PM) Baso Absolute 0.00 10*3 [0.00-0.20 10*3] (07/29/16 12:40 PM) Toxic Gran Occasional *ABN* (07/29/16 12:40 PM) Dohle Bodies Occasional *ABN* (07/29/16 12:40 PM) Ovalocytes Occasional *ABN* (07/29/16 12:40 PM) Nucleated RBC 0.0 /100 WBC Automated [0 /100 (07/29/16 12:40 PM) WBC] Differential Manual *ABN* (07/29/16 12:40 PM) Chemistry Most recent to 1 oldest [Reference Range]: Sodium Lvl [136-144 138 mEq/L mEq/L] (07/29/16 7:12 AM) Potassium Lvl 3.3 mEq/L [3.6-5.1 mEq/L] *LOW* (07/29/16 7:12 AM) Chloride [99-109 104 mEq/L mEq/L] (07/29/16 7:12 AM) CO2 [22-32 mEq/L] 26 mEq/L (07/29/16 7:12 AM) AGAP [3-20] 8 (07/29/16 7:12 AM) BUN [4-20 mg/dL] 6 mg/dL (07/29/16 7:12 AM) Glucose Lvl [70-100 149 mg/dL mg/dL] *HI* (07/29/16 7:12 AM) Creatinine Lvl 0.61 mg/dL [0.64-1.27 mg/dL] *LOW* (07/29/16 7:12 AM) eGFR [>60] >60 1 (07/29/16 7:12 AM) Calcium Lvl 8.4 mg/dL [8.6-10.0 mg/dL] *LOW* (07/29/16 7:12 AM) Magnesium Lvl 1.5 mg/dL [1.8-2.5 mg/dL] *LOW* (07/29/16 7:12 AM) 1Result Comment: Multiply eGFR results by 1.21 for race. Blood Bank Results Most recent to 1 oldest [Reference Range]: ABO/Rh A POS (07/29/16 7:12 AM) Antibody Screen Tube NEG (07/28/16 7:33 AM) Microbiology Reports TEST: Bone Marrow Culture and Smear STATUS: Order in Progress BODY SITE: SOURCE: Hematopoietic Progenitor Cells COLLECTED DATE/TIME: 07/28/16 1:25 PM Bone Marrow Culture and Smear No growth after 12 hours incubation. Nursing unit will be called if growth is detected. TEST: Bone Marrow Culture and Smear1 STATUS: Order in Progress BODY SITE: SOURCE: Hematopoietic Progenitor Cells COLLECTED DATE/TIME: 07/28/16 1:25 PM Bone Marrow Culture and Smear No growth after 12 hours incubation. Nursing unit will be called if growth is detected. 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 Blood-derived hematopoietic progenitor cell 07/28/16 harvesting for [...]
--- OUTSIDE RECORDS SUMMARY | 2017-01-21 06:57 | XMS REPORT | Referral Summary ---
Author Author [facility] Organization [facility] Address Unknown Phone Unavailable Care Team Providers Care Costume Seamstress Name Role Phone Surekha Basurto Primary Care Physician [phone] Encounter Date(s): 11/03/16 - 11/03/16 [facility] [address] [place] [address]- Discharge Diagnosis: Multiple myeloma Discharge Diagnosis: Mild persistent asthma Discharge Diagnosis: Benign essential hypertension Discharge Diagnosis: Constipation due to opioid therapy Discharge Diagnosis: ASHLEY (generalized anxiety disorder) Discharge Diagnosis: Oral thrush Discharge Diagnosis: Generalized abdominal pain Discharge Disposition: -Home or Self Care Attending Physician: Cortez Basurto MD Admitting Physician: Cortez Basurto MD Vital Signs Most recent to 1 oldest [Reference Range]: Temperature Tympanic 36.8 degC [36.6-38.1 degC] (11/03/16 7:06 AM) Peripheral Pulse 76 bpm Rate [60-100 bpm] (11/03/16 7:06 AM) Blood Pressure 126/74 mmHg [90-140/60-90 mmHg] (11/03/16 7:06 AM) Problem List Condition Effective Dates Status [...] routinely, # 18 g, 11 Refill(s), Pharmacy: [facility] #[id number] Start Date: 05/21/16 Status: Ordered Bentyl 10 mg oral capsule 10 mg 1 caps, Oral, QID, # 56 caps, 1 Refill(s), Pharmacy: [facility] # [id number] Start Date: 10/14/16 Stop Date: 11/11/16 Status: Ordered Carafate 1 g/10 mL oral suspension 1 g 10 mL, Oral, TID, as needed abdominal pain, 0 Refill(s) Start Date: 09/30/16 Status: Ordered [...] BID, # 60 tabs, 11 Refill(s), Pharmacy: [facility] # [id number], 1 tabs Oral BID Start Date: 03/06/16 Status: Ordered fentaNYL 50 mcg/hr transdermal film, extended release 1 patches, Topical, q72hr, # 10 patches, 0 Refill(s) Start Date: 11/03/16 Status: Ordered LORazepam 0.5 mg oral tablet 0.5 mg 1 tabs, Oral, TID, as needed for anxiety, # 30 tabs, 1 Refill(s) Start Date: 10/09/16 Status: Ordered magnesium hydroxide 8% oral suspension 2.4 g 30 mL, Oral, BID, as needed for constipation, # 300 mL, [...] 0 Refill(s) Start Date: 07/13/16 Status: Ordered Revlimid 10 mg oral capsule [...] qPM, # 90 tabs, 3 Refill(s), Pharmacy: [facility] # [id number], 1 tabs Oral qPM Start Date: 03/11/16 Status: Ordered Tylenol Extra Strength 500 mg oral tablet 1,000 mg 2 tabs, Oral, BID, as needed for headache, 0 Refill(s) Start Date: 11/03/16 Status: Ordered Zofran 8 mg, Oral, TID, [...] Patient Education Author: Cortez Basurto MD Date: 11/03 Surgery Abdominal Pain, Adult Many things can cause belly (abdominal) pain. Most times, the belly pain is not dangerous. Many cases of belly pain can be watched and treated at home. HOME CARE Do not take medicines that help you go poop (laxatives) unless told to by your doctor. Only take medicine as told by your doctor. Eat or drink as told by your doctor. Your doctor will tell you if you should be on a special diet. GET HELP IF: You do not know what is causing your belly pain. You have belly pain while you are sick to your stomach (nauseous) or have runny poop (diarrhea). You have pain while you pee or poop. Your belly pain wakes you up at night. You have belly pain that gets worse or better when you eat. You have belly pain that gets worse when you eat fatty foods. You have a fever. GET HELP RIGHT AWAY IF: The pain does not go away within 2 hours. You keep throwing up (vomiting). The pain changes and is only in the right or left part of the belly. You have bloody or tarry looking poop. MAKE SURE YOU: Understand these instructions. Will watch your condition. Will get help right away if you are not doing well or get worse. This information is not intended to replace advice given to you by your health care provider. Make sure you discuss any questions you have with your health care provider. Document Released: 02/15/2009 Document Revised: 09/20/2015 Document Reviewed: [employer] Interactive Patient Education 2016 [employer]. No follow up information was provided. Extracted from: Title: Asthma, HTN, Multiple Author: Cortez Basurto MD Date: 11/03/16 Myeloma, Low back pain and other problems Impression and Plan Diagnosis Mild persistent asthma (CXK17-OM J45.30, Discharge, Medical). ASHLEY (generalized anxiety disorder) (APZ27-UJ F41.1, Discharge, Medical). Multiple myeloma (JMS20-QU C90.00, Discharge, Medical). Benign essential hypertension (BAR55-JN I10, Discharge, Medical). Oral thrush (QFE28-RA B37.0, Discharge, Medical). Generalized abdominal pain (AHE34-YA R10.84, Discharge, Medical). Constipation due to opioid therapy (NYQ85-PM K59.03, Discharge, Medical). Plan: 1) Use the MOM only as needed for constipation. 2) Take Miralax first, if needed for constipation, before taking the MOM (8 hours later). 3) Continue your present meds the same, otherwise. Fentanyl patches were refilled today. 4) See me in 2 weeks and as needed.. Orders Orders (Selected) Outpatient Orders Ordered Office Visit Level 4 Est 60411: Prescriptions Prescribed fentaNYL 50 mcg/hr transdermal film, extended release: 1 patches, Topical, q72hr , 10 patches, 0 Refill(s). Dx/Order Association Plan: Diagnosis: Benign essential hypertension Comment: Ordered: Office Visit Level 4 Est 90778; 11/03/16 18:50:00 CELLOPHANE WORKER, Benign essential hypertension | Mild persistent asthma | Multiple myeloma | Oral thrush | ASHLEY (generalized anxiety disorder) | Constipation due to opioid therapy | Generalized abdominal pain Diagnosis: Constipation due to opioid therapy Comment: Ordered: Office Visit Level 4 Est 07425; 11/03/16 18:50:00 CELLOPHANE WORKER, Benign essential hypertension | Mild persistent asthma | Multiple myeloma | Oral thrush | ASHLEY (generalized anxiety disorder) | Constipation due to opioid therapy | Generalized abdominal pain Diagnosis: ASHLEY (generalized anxiety disorder) Comment: Ordered: Office Visit Level 4 Est 68801; 11/03/16 18:50:00 CELLOPHANE WORKER, Benign essential hypertension | Mild persistent asthma | Multiple myeloma | Oral thrush | ASHLEY (generalized anxiety disorder) | Constipation due to opioid therapy | Generalized abdominal pain Diagnosis: Generalized abdominal pain Comment: Ordered: Office Visit Level 4 Est 47228; 11/03/16 18:50:00 CELLOPHANE WORKER, Benign essential hypertension | Mild persistent asthma | Multiple myeloma | Oral thrush | ASHLEY (generalized anxiety disorder) | Constipation due to opioid therapy | Generalized abdominal pain Diagnosis: Mild persistent asthma Comment: Ordered: Office Visit Level 4 Est 80338; 11/03/16 18:50:00 CELLOPHANE WORKER, Benign essential hypertension | Mild persistent asthma | Multiple myeloma | Oral thrush | ASHLEY (generalized anxiety disorder) | Constipation due to opioid therapy | Generalized abdominal pain Diagnosis: Multiple myeloma Comment: Ordered: Office Visit Level 4 Est 70686; 11/03/16 18:50:00 CELLOPHANE WORKER, Benign essential hypertension | Mild persistent asthma | Multiple myeloma | Oral thrush | ASHLEY (generalized anxiety disorder) | Constipation due to opioid therapy | Generalized abdominal pain Diagnosis: Oral thrush Comment: Ordered: Office Visit Level 4 Est 96204; 11/03/16 18:50:00 CELLOPHANE WORKER, Benign essential hypertension | Mild persistent asthma | Multiple myeloma | Oral thrush | ASHLEY (generalized anxiety disorder) | Constipation due to opioid therapy | Generalized abdominal pain Additional Orders: Comment: Ordered: Tylenol Extra Strength 500 mg oral tablet,1,000 mg 2 tabs , Oral, BID, as needed for headache, 0 Refill(s) Other status: fentaNYL 50 mcg/hr transdermal film, extended release ,1 patches, Topical, q72hr, # 10 patches, 0 Refill(s)(Complete) End of Orders ."
--- OUTSIDE RECORDS SUMMARY | 2017-01-21 06:57 | XMS REPORT | Referral Summary ---
Author Author [facility] Organization [facility] Address Unknown Phone Unavailable Care Team Providers Care Correctional Case Manager Name Role Phone Surekha Basurto Primary Care Physician [phone] Encounter VC Date(s): 07/01/16 - 07/01/16 [facility] [address] [place] [address] Discharge Disposition: 01-Home or Self Care Attending [...] BID, # 180 Each, 1 Refill(s), Pharmacy: [facility] Start Date: 01/17/16 Status: Ordered albuterol CFC free 90 mcg/inh inhalation aerosol 1 puffs, Inhalation, QID, as needed for wheezing, # 18 g, 11 Refill(s), Pharmacy : [facility] #[id number] Start Date: 05/21/16 Status: Ordered Amitiza 24 mcg oral capsule 24 mcg 1 caps, Oral, BID, for constipation, # 60 caps, 11 Refill(s), Pharmacy: [facility] #[id number], 1 caps Oral BID,Instr:for constipation Start Date: 06/29/16 Status: Ordered clotrimazole 10 mg oral lozenge 10 mg 1 lozenges, Oral, 5x/Day, X 14 days, # 70 lozenges, 5 Refill(s), Pharmacy : [facility] #[id number], 1 lozenges Oral 5x/Day,x14 days Start Date: 05/07/16 Stop Date: 07/30/16 Status: Ordered Colace 100 mg oral capsule 100 mg 1 caps, Oral, BID, as needed for constipation, # 20 caps, 0 Refill(s) Start Date: 05/01/16 Status: Ordered Crestor 20 mg oral tablet 20 mg 1 tabs, Oral, Bedtime (once a day), # 90 tabs, 1 Refill(s), Pharmacy: [facility], 1 tabs Oral Bedtime (once a day) Start Date: 02/06/16 Status: Ordered [facility] 1 caps, Oral, qPM, [...] BID, # 60 tabs, 11 Refill(s), Pharmacy: [facility] # [id number], 1 tabs Oral BID Start Date: 03/06/16 [...] Daily, # 30 caps, 11 Refill(s), Pharmacy: [facility] # [id number], Bill to patient, 1 caps Oral Daily,x30 days Start Date: 01/29/16 Stop Date: 01/23/17 Status: Ordered [place] 10 mg-325 mg oral tablet 1 tabs, Oral, QID, Pain Moderate (4-6), # 120 tabs, 0 Refill(s) Start Date: 06/26/16 Stop Date: 07/26/16 Status: Ordered propranolol 10 mg oral tablet 10 mg 1 tabs, Oral, BID, # 60 tabs, 5 Refill(s), Pharmacy: [facility] # [id number], 1 tabs Oral BID Start Date: 06/15/16 [...] qPM, # 90 tabs, 3 Refill(s), Pharmacy: [facility] # [id number], 1 tabs Oral qPM Start Date: 03/11/16 [...]
--- OUTSIDE RECORDS SUMMARY | 2017-01-21 06:58 | XMS REPORT | Referral Summary ---
Author Author [facility] Organization [facility] Address Unknown Phone Unavailable Care Team Providers Care Senior Talent Management Consultant Name Role Phone Surekha Basurto Primary Care Physician [phone] Encounter VC Date(s): 07/27/16 - 07/27/16 [facility] [address] [place] [address] Discharge Disposition: 01-Home or Self Care Attending Physician: Seven Hanley MD Vital Signs Most recent to 1 oldest [Reference Range]: Temperature Temporal 36.5 degC Artery [36.3-37.8 (07/27/16 9:55 AM) degC] Apical Heart Rate 78 bpm [60-100 bpm] (07/27/16 9:55 AM) Heart Rate Monitored 72 bpm [60-100 bpm] (07/27/16 12:20 PM) Respiratory Rate 10 br/min [14-20 br/min] *LOW* (07/27/16 12:20 PM) Blood Pressure 125/82 mmHg [90-140/60-90 mmHg] (07/27/16 12:20 PM) Mean Arterial 78 mmHg Pressure, Cuff (07/27/16 12:20 PM) SpO2 94 % (07/27/16 12:20 PM) Problem List Condition Effective Dates Status [...] BID, # 180 Each, 1 Refill(s), Pharmacy: [facility] Start Date: 01/17/16 Status: Ordered Advair Diskus 250 mcg-50 mcg inhalation powder 1 puffs, Inhalation, BID, 0 Refill(s) Start Date: 07/27/16 Status: Ordered albuterol CFC free 90 mcg/inh inhalation aerosol 1 puffs, Inhalation, QID, as needed for wheezing, # 18 g, 11 Refill(s), Pharmacy : [facility] #[id number] Start Date: 05/21/16 Status: Ordered Amitiza 24 mcg oral capsule 24 mcg 1 caps, Oral, BID, for constipation, # 60 caps, 11 Refill(s), Pharmacy: [facility] #[id number], 1 caps Oral BID,Instr:for constipation Start Date: 06/29/16 Status: Ordered Amitiza 24 mcg oral capsule 24 mcg 1 caps, Oral, BID, # 60 caps, 0 Refill(s) Start Date: 07/27/16 Status: Ordered clotrimazole 10 mg oral lozenge 10 mg 1 lozenges, Oral, 5x/Day, X 14 days, # 70 lozenges, 5 Refill(s), Pharmacy : [facility] #[id number], 1 lozenges Oral 5x/Day,x14 days Start Date: 05/07/16 Stop Date: 07/30/16 Status: Ordered Colace 100 mg oral capsule 100 mg 1 caps, Oral, BID, as needed for constipation, # 20 caps, 0 Refill(s) Start Date: 05/01/16 Status: Ordered Crestor 20 mg oral tablet 20 mg 1 tabs, Oral, Bedtime (once a day), # 90 tabs, 1 Refill(s), Pharmacy: [facility], 1 tabs Oral Bedtime (once a day) Start Date: 02/06/16 Status: Ordered [facility] 1 caps, Oral, qPM, as needed, 0 [...] BID, # 60 tabs, 11 Refill(s), Pharmacy: [facility] # [id number], 1 tabs Oral BID Start Date: 03/06/16 [...] Daily, # 30 caps, 11 Refill(s), Pharmacy: [facility] # [id number], Bill to patient, 1 caps Oral Daily,x30 days Start Date: 01/29/16 Stop Date: 01/23/17 Status: Ordered Percocet 7.5/325 oral tablet 1-2 tabs, Oral, q4hr, as needed for pain, # 30 tabs, 0 Refill(s) Start Date: 07/13/16 Status: Ordered propranolol 10 mg oral tablet 10 mg 1 tabs, Oral, BID, # 60 tabs, 5 Refill(s), Pharmacy: [facility] # [id number], 1 tabs Oral BID Start Date: 06/15/16 [...] qPM, # 90 tabs, 3 Refill(s), Pharmacy: [facility] # [id number], 1 tabs Oral qPM Start Date: 03/11/16 [...]
--- OUTSIDE RECORDS SUMMARY | 2017-01-21 06:58 | XMS REPORT | Referral Summary ---
Author Author [facility] Organization [facility] Address Unknown Phone Unavailable Care Team Providers Care Warehouse Operations Manager Name Role Phone Surekha Basurto Primary Care Physician [phone] Encounter VC Date(s): 06/29/16 - 06/29/16 [facility] [address] [place] [address] [place] Discharge Diagnosis: Oral thrush Discharge Diagnosis: Benign essential tremor Discharge Diagnosis: Coronary artery disease Discharge Diagnosis: ASHLEY (generalized anxiety disorder) Discharge Diagnosis: Hypercholesterolemia Discharge Diagnosis: Metastatic cancer to bone Discharge Diagnosis: Multiple myeloma Discharge Diagnosis: Benign essential hypertension Discharge Diagnosis: Constipation Discharge Diagnosis: Asthma Discharge Disposition: 01-Home or Self Care Attending Physician: Cortez Basurto MD Admitting Physician: Cortez Basurto MD Vital Signs Most recent to 1 oldest [Reference Range]: Temperature Tympanic 36.0 degC [36.6-38.1 degC] *LOW* (06/29/16 1:42 PM) Peripheral Pulse 92 bpm Rate [60-100 bpm] (06/29/16 1:42 PM) Blood Pressure 144/84 mmHg [90-140/60-90 mmHg] *HI* (06/29/16 1:42 PM) SpO2 95 % (06/29/16 1:42 PM) Problem List Condition Effective Dates Status [...] BID, # 180 Each, 1 Refill(s), Pharmacy: [facility] Start Date: 01/17/16 Status: Ordered albuterol CFC free 90 mcg/inh inhalation aerosol 1 puffs, Inhalation, QID, as needed for wheezing, # 18 g, 11 Refill(s), Pharmacy : [facility] #[id number] Start Date: 05/21/16 Status: Ordered Amitiza 24 mcg oral capsule 24 mcg 1 caps, Oral, BID, for constipation, # 60 caps, 11 Refill(s), Pharmacy: [facility] #[id number], 1 caps Oral BID,Instr:for constipation Start Date: 06/29/16 Status: Ordered clotrimazole 10 mg oral lozenge 10 mg 1 lozenges, Oral, 5x/Day, X 14 days, # 70 lozenges, 5 Refill(s), Pharmacy : [facility] #[id number], 1 lozenges Oral 5x/Day,x14 days Start Date: 05/07/16 Stop Date: 07/30/16 Status: Ordered Colace 100 mg oral capsule 100 mg 1 caps, Oral, BID, as needed for constipation, # 20 caps, 0 Refill(s) Start Date: 05/01/16 Status: Ordered Crestor 20 mg oral tablet 20 mg 1 tabs, Oral, Bedtime (once a day), # 90 tabs, 1 Refill(s), Pharmacy: [facility], 1 tabs Oral Bedtime (once a day) Start Date: 02/06/16 Status: Ordered [facility] 1 caps, Oral, qPM, as [...] BID, # 60 tabs, 11 Refill(s), Pharmacy: [facility] # [id number], 1 tabs Oral BID Start Date: 03/06/16 [...] Daily, # 30 caps, 11 Refill(s), Pharmacy: [facility] # [id number], Bill to patient, 1 caps Oral Daily,x30 days Start Date: 01/29/16 Stop Date: 01/23/17 Status: Ordered [place] 10 mg-325 mg oral tablet 1 tabs, Oral, QID, Pain Moderate (4-6), # 120 tabs, 0 Refill(s) Start Date: 06/26/16 Stop Date: 07/26/16 Status: Ordered propranolol 10 mg oral tablet 10 mg 1 tabs, Oral, BID, # 60 tabs, 5 Refill(s), Pharmacy: [facility] # [id number], 1 tabs Oral BID Start Date: 06/15/16 [...] qPM, # 90 tabs, 3 Refill(s), Pharmacy: [facility] # [id number], 1 tabs Oral qPM Start Date: 03/11/16 [...] Smoke. Air pollutants such as dust, household manager quality, hair sprays, aerosol sprays, paint fumes, strong [...] later. Symptoms include: Wheezing. Excessive nighttime or instruction dean coughing. Frequent or severe coughing with a [...] hardware store, a double-layered or microfilter vacuum airplane cleaner bag, or a vacuum airplane cleaner with a HEPA filter. Replace carpet [...] Released: 08/30/2006 Document Revised: 09/20/2015 Document Reviewed: [employer] Patient Education 2016 [employer]. No follow up information was provided. Extracted from: Title: multiple problems Author: Cortez Basurto MD Date: 06/29/16 Impression and Plan Diagnosis Asthma (ICE32-RM J45.31, Discharge, Medical). Coronary artery disease (VJW28-MJ I25.10, Discharge, Medical). Hypercholesterolemia (YHH47-WY E78.00, Discharge, Medical). Constipation (INK10-KE K59.00, Discharge, Medical). Benign essential tremor (HWK08-UZ G25.0, Discharge, Medical). ASHLEY (generalized anxiety disorder) (VTO00-VP F41.1, Discharge, Medical). Oral thrush (SYN66-DE B37.0, Discharge, Medical). Multiple myeloma (JZL31-KQ C90.00, Discharge, Patient Stated). Metastatic cancer to bone (SXQ21-OF C79.51, Discharge, Medical). Benign essential hypertension (DSN97-OC I10, Discharge, Medical). Plan: 1) Reduce your Fentanyl to 100 mcg/hr. 2) Add Amitiza 24 mcg BID for constipation. 3) See me in 4 weeks and as needed. 4) Increase the Duoneb treatments to 4 times daily. 5) Continue your other meds. . Orders Orders (Selected) Outpatient Orders Ordered Office Visit Level 4 Est 41940: Future (On Hold) XR Bone Survey Complete: XR Chest 2 Views: XR Panorex/Orthopantogram: XR Sinuses Paranasal Complete: Prescriptions Prescribed Amitiza 24 mcg oral capsule: 24 mcg=1 caps, Oral, BID, for constipation, 60 caps , 11 Refill(s). Dx/Order Association Plan: Diagnosis: Asthma Comment: Ordered: Office Visit Level 4 Est 40541; 06/29/16 18:08:00 CDT, Metastatic cancer to bone | Multiple myeloma | Coronary artery disease | Asthma | Benign essential hypertension | Constipation | Benign essential tremor | ASHLEY ( generalized anxiety disorder) | Hypercholesterolemia | Oral thrush Diagnosis: Benign essential hypertension Comment: Ordered: Office Visit Level 4 Est 83040; 06/29/16 18:08:00 CDT, Metastatic cancer to bone | Multiple myeloma | Coronary artery disease | Asthma | Benign essential hypertension | Constipation | Benign essential tremor | ASHLEY ( generalized anxiety disorder) | Hypercholesterolemia | Oral thrush Diagnosis: Benign essential tremor Comment: Ordered: Office Visit Level 4 Est 09871; 06/29/16 18:08:00 CDT, Metastatic cancer to bone | Multiple myeloma | Coronary artery disease | Asthma | Benign essential hypertension | Constipation | Benign essential tremor | ASHLEY ( generalized anxiety disorder) | Hypercholesterolemia | Oral thrush Diagnosis: Constipation Comment: Ordered: Office Visit Level 4 Est 21498; 06/29/16 18:08:00 CDT, Metastatic cancer to bone | Multiple myeloma | Coronary artery disease | Asthma | Benign essential hypertension | Constipation | Benign essential tremor | ASHLEY ( generalized anxiety disorder) | Hypercholesterolemia | Oral thrush Diagnosis: Coronary artery disease Comment: Ordered: Office Visit Level 4 Est 47625; 06/29/16 18:08:00 CDT, Metastatic cancer to bone | Multiple myeloma | Coronary artery disease | Asthma | Benign essential hypertension | Constipation | Benign essential tremor | ASHLEY ( generalized anxiety disorder) | Hypercholesterolemia | Oral thrush Diagnosis: ASHLEY (generalized anxiety disorder) Comment: Ordered: Office Visit Level 4 Est 12193; 06/29/16 18:08:00 CDT, Metastatic cancer to bone | Multiple myeloma | Coronary artery disease | Asthma | Benign essential hypertension | Constipation | Benign essential tremor | ASLHEY ( generalized anxiety disorder) | Hypercholesterolemia | Oral thrush Diagnosis: Hypercholesterolemia Comment: Ordered: Office Visit Level 4 Est 04902; 06/29/16 18:08:00 CDT, Metastatic cancer to bone | Multiple myeloma | Coronary artery disease | Asthma | Benign essential hypertension | Constipation | Benign essential tremor | ASHLEY ( generalized anxiety disorder) | Hypercholesterolemia | Oral thrush Diagnosis: Metastatic cancer to bone Comment: Ordered: Office Visit Level 4 Est 78535; 06/29/16 18:08:00 CDT, Metastatic cancer to bone | Multiple myeloma | Coronary artery disease | Asthma | Benign essential hypertension | Constipation | Benign essential tremor | ASHLEY ( generalized anxiety disorder) | Hypercholesterolemia | Oral thrush Diagnosis: Multiple myeloma Comment: Ordered: Office Visit Level 4 Est 66034; 06/29/16 18:08:00 CDT, Metastatic cancer to bone | Multiple myeloma | Coronary artery disease | Asthma | Benign essential hypertension | Constipation | Benign essential tremor | ASHLEY ( generalized anxiety disorder) | Hypercholesterolemia | Oral thrush Diagnosis: Oral thrush Comment: Ordered: Office Visit Level 4 Est 63727; 06/29/16 18:08:00 CDT, Metastatic cancer to bone | Multiple myeloma | Coronary artery disease | Asthma | Benign essential hypertension | Constipation | Benign essential tremor | ASHLEY ( generalized anxiety disorder) | Hypercholesterolemia | Oral thrush Additional Orders: Comment: Ordered: Amitiza 24 mcg oral capsule,24 mcg 1 caps, Oral, BID, for constipation, # 60 caps, 11 Refill(s), Pharmacy: [facility] #[id number], 1 caps Oral BID,Instr:for constipation End of Orders ."
--- NOTE | 2017-01-21 07:09 | ERPDOC ---
Departure Disposition Decision Date: January 21, 2017 Disposition Decision Time: 08:27 Disposition: 01 DISCHARGED HOME, SELF-CARE Impression Impression Impression: Primary Impression: C. difficile colitis Severity: Mild Condition: Improved Seen By: Physician only Referrals: MIRTA GUERRIER MD (Family) 1 Week Patient Instructions: Clostridium Difficile Infection (ED) Problems/Meds/Labs Reviewed?: Yes Medications reviewed and manag: Yes Additional Instructions: You have stomach cramping related to your C diff infection. Talk with your doctor about using Naproxen (aleve) as needed for cramping (this is better than any other medication for this pain). Take the bentyl as needed to help treat the cramping. Follow up with your doctor in the next week. Follow up with the Surgeon later this month as previously arranged. Follow up care ordered?: Yes Mental Status: Alert, Oriented Scripts Dicyclomine HCl (Dicyclomine HCl) 10 Mg Capsule 1 CAP PO Q6HPRN, #100 CAP 3 Refills Prov: JANUARY,CHARIS Lr DO 01/21/17 HPI - Abdominal Pain General Chief Complaint: Abdominal Pain Stated Complaint: STOMACH CRAMPS Time Seen by Provider: 07:03 Source: patient History/Exam Limitations: no limitations HPI - Abdominal Pain Initial Comments 71yo man presents to the ER today for abdominal cramping. Pt has had similar sx for the last 2mos; has been seen by PCM. Most recently dx'ed with C diff and started on metronidazole a few days ago. Today pt's cramping worsened and he has had 4 BMs already this AM. Pt took some tylenol and TUMS without relief of sx. Pt has an appt with Gen Surg in two weeks for endoscopy. Occurred At: home Onset: Constant Duration: other Pain Scale: Now & Worst: 5/10 Quality: cramping Location: generalized abdomen Radiation: no radiation Activities at Onset: none Modifying Factors: WORSE WITH: movement, palpation Associated Symptoms: fatigue Hx of Similar Symptoms: Yes Allergies: Coded Allergies: morphine (Verified Adverse Reaction, Intermediate, GI DISTRESS, 01/21/17) aspirin (Verified Adverse Reaction, Unknown, GI DISTRESS, 01/21/17) atorvastatin calcium (Verified Adverse Reaction, Unknown, GI DISTRESS, 07/30) theophylline (Verified Adverse Reaction, Unknown, GI DISTRESS, 01/21/17) Past History Patient Medical History (1) C. difficile colitis Patient Surgical History prostatectomy 2008 left inguinal herniorrhaphy approx 2013 cholecystectomy approx 2011 or 2012 Past Medical History Metabolic: cancer, hypercholesterolemia, hypertension Cardiac: CAD Respiratory: asthma, pulmonary embolus GI: GERD, constipation Male: BPH, kidney stones Neurological: TIA, chronic disability, headaches, neuropathy, other Musculoskeletal: back pain Hematologic: anemia, pancytopenia Psychological: anxiety, depression Surgical History General: EGD, back, gallbladder, hernia Cardiac: cardiac cath Reproductive/: prostatectomy Family History Family PMH: FOUND: CAD, cancer Vaccines Hx Influenza Vaccination: Yes (JUN 2015) Hx Pneumococcal Vaccination: Yes (JUN 2015 PCV 13) Social History Does patient use chewing tobac: No # of Packs/Tins per Day: 1 # of Years: 17 Substance Use Type: does not use Alcohol Intake: none Marital Status: Sexuality: female partner, other Household Members: spouse Review of Systems GI Upper Abdomen: nausea, pain, DENIES: dysphagia, food intolerances, heartburn/ indigestion, hematemesis, vomiting Lower Abdomen: diarrhea, pain, DENIES: blood in stool, wanda-colored stools, constipation, melena, painful BM All other Systems All Other Systems: Reviewed and Negative Physical Exam General General Nourishment: well nourished, well developed, appears stated age, no acute distress, adult General Body Habitus: well groomed Vitals and Pain First Documented Vital Signs Date Time Temp Pulse Resp B/P Pulse Ox O2 Delivery O2 Flow Rate FiO2 01/21/17 06:47 98.1 79 18 133/88 97 Room Air Weight: Kilograms: 79.100 Height (feet): 5 Height (inches): 6.00 Triage Pain Scale: RN VS reviewed by Provider: Yes Normal Exams: Head: Normocephalic w/o trauma Eyes: Pupils are PERRLA w/ EOMI, No scleral icterus, irritation ENMT: No facial trauma, nasal exudates, pharyngeal erythema Neck: Full range of motion, without adenopathy, JVD Lymphatic: No lymphadenopathy Musculoskeletal: No tenderness, or deformity noted Integumentary: No rashes, hives, or bruising noted Neurologic: Patient is alert, and oriented Psychiatric: Patient exhibits, appropriate attention Respiratory (brief) Respiratory: FOUND: clear all huerta, equal bilaterally, symmetrical, NOT FOUND : rales, wheezes Cardiovascular (brief) Cardiac: FOUND: regular rate, NOT FOUND: click, gallop, murmur, pedal edema, peripheral edema, regular rhythm (Irregularly irregular), rub Capillary Refill: <2 sec Pulses: all distal extremities, equal, strong Abdomen (brief) Abdominal Brief: FOUND: bowel normo active x4, soft, NOT FOUND: distended, hepatosplenomegaly, pulsatile mass, tender Differential Diagnoses Considering: Gastroenteritis, Other (C diff) Progress Results/Orders Orders Procedure Category Date Status Time Ketorolac (Toradol) PHA 01/21/17 Complete 07:15 Dicyclomine Inj PHA 01/21/17 Complete (Bentyl) 07:15 Medications Current ED Medications Ketorolac Tromethamine (Toradol) 60 mg O ONCE IM Last administered on 07:12; Start 01/21/17 at 07:15; Stop 01/21/17 at 07:16; Status DC Dicyclomine HCl (Bentyl) 10 mg O ONCE IM Last administered on 01/21/17 07:12 ; Start 01/21/17 at 07:15; Stop 01/21/17 at 07:16; Status DC Progress Progress 71yo man with known dx of C diff colitis with chronic, constant cramping and diarrhea that became worse this AM. Discussion held with pt regarding likely dx' s; shared decision making with pt results in trial of meds for colonic cramping. If that is unsuccessful, will get more aggressive with workup and treatment. Marked improvement following toradol and bentyl; pt wants to go home. Will give rx for bentyl and recommend prn use of naproxen for abdominal cramps. F/u with PCM. Pt voices understanding of dx, prognosis, tx, and need for f/u. CHARIS NELSON DO January 21, 2017 07:08
[2017-01-21] MEDS ORDERED: KETOROLAC 60mg/2ml INJECTION IM ONE (07:15)
[2017-01-21] MEDS ORDERED: DICYCLOMINE IM ONE (07:15)
[2017-01-21] MEDS ORDERED: ACYC800T PO (07:23)
[2017-01-21] MEDS ORDERED: FENT1PAT65 TOP (07:23)
[2017-01-21] MEDS ORDERED: METR-116 PO (07:23)
[2017-01-21] MEDS ORDERED: ONDA8TAB5 PO (07:23)
--- OUTSIDE RECORDS SUMMARY | 2017-01-21 07:24 | XMS REPORT | Continuity of Care Document ---
Author Author Eduardo [facility]IVE Organization [facility] Address Unknown Phone Unavailable Support Name Relationship Address Phone JENNIFFER PARK FACS, MD Caregiver [address] [place] [address] [place] [phone] MIRTA GUERRIER MD Caregiver [address] [place] [address] [place] [phone] ANNA JETT Next Of Kin [address] [place] [address] Insurance Providers Payer Name Policy Number Subscriber Name Relationship [facility] [id number] Zarina Mortensen Self Medicare Part A Only [id number] Zarina Mortensen Self Advance Directives Directive Response [...] F (96.8 - 99.1) Temperature (Calculated Celsius) 36.88241 degrees C (36.0 - 37.3) Temperature Source [...] 10, 2010 11:06am LAB TEST FORM REQUEST [id number] - Lymphocytes # (Auto) June 11, 2014 [...]
--- NOTE | 2017-01-21 08:20 | NUR ---
COMFORT PT RATES PAIN 3/10 AND IS FEELING MUCH BETTER
[2017-01-21] MEDS ORDERED: DICY10CA13 PO (08:29)
[2017-01-21 08:37] VITALS: BP 153/67; PULSE 81; RESP 20; TEMP 98.1; O2SAT 94
--- NOTE | 2017-01-21 08:37 | NUR ---
DISMISSAL DISMISSAL INSTRUCTIONS WITH RX X1. NO FURTHER QUESTIONS AT THIS TIME. PT LEFT DEPARTMENT AMBUALTORY WITH SIGNIFICANT OTHER
== END 2017-01-21 08:47 | disposition home or self-care (01) ==
LOC: ED 06:43
DX: A04.7 Enterocolitis due to Clostridium difficile (principal)
CPT/HCPCS: 96372; 99283; J0500; J1885

== ENCOUNTER 2017-01-29 07:06 | Emergency (ER) | payer MEDICARE, BC ==
[~2017-01-29] VITALS: Ht 167.6 cm; Wt 79.8 kg
[~2017-01-29 07:06] MED LIST changes: +ACYC800T PO; -COLE625T PO; +DICY10CA13 PO; -DOCU-132 PO; -ESOM40CA PO; -FENT1PAT28 TOP; +FENT1PAT65 TOP; -HYDR-4078 PO; -LACT1CAP58 PO; +METR-116 PO; -ONDA-55 PO; +ONDA8TAB5 PO; -PROP10TA10 PO; -ROSU20TA PO; -VALA500T42 PO
[2017-01-29 07:10] VITALS: Ht 167.6 cm; Wt 79.8 kg
--- OUTSIDE RECORDS SUMMARY | 2017-01-29 07:11 | XMS REPORT | Continuity of Care Document ---
Author Author [facility] Organization [facility] Address Unknown Phone Unavailable Support Name Relationship Address Phone JANUARYCHARIS DO Caregiver [address] [place] [address] Unavailable MIRTA GUERRIER MD Caregiver [address] [place] [address] Unavailable ANNA JETT Next Of Kin [address] [place] [address] Insurance Providers Guarantor Zarina Mortensen Address [address] [place] [address] Email [email or web address] [facility] Policy Number [id number] Subscriber's Name Zarina Mortensen Relationship 18 Self Group Number [id number] Payer Medicare Policy Number [id number] Subscriber's Name Zarina Mortensen Relationship 18 Self Advance Directives Directive Response Recorded Date/Time Advanced Directives Type Living Will DPOA for Healthcare 01/11/14 3:07pm Ordered Resuscitation Status Full Code 01/11/14 4:34pm Resuscitation Documents on File No 01/11/14 3:07pm Chief Complaint and Reason for Visit Chief Complaint Abdominal Pain Reason for Visit [id number] Problems Active Problems Medical Problem Onset Date Status Anxiety Unknown Acute Atelectasis of both lungs Unknown Acute C. difficile colitis Unknown Compression fracture of spine ~12/2015 Chronic Dyspnea [...] Route Directions Days Qty Instructions Start Date Acyclovir 800 Mg Tablet 1 Tab Oral Twice A Day 01/21/17 Albuterol Sulfate (Ventolin Hfa 90 Mcg/Actuation) 18 Gm Hfa.aer.ad 1 Puff Inhalation Four Times Daily as needed for Prn Orders 06/10/15 Apixaban (Eliquis) 5 Mg Tablet 5 Mg Oral Twice A Day 02/03/16 Clotrimazole 10 Mg Kianna 10 Mg Oral 5 Times Daily 03/30/16 Dicyclomine Hcl 10 Mg Capsule 1 Cap Oral Every 6 Hr Prn 100 Capsule 01/21/17 Fentanyl (Fentanyl 25 Mcg/Hr) 1 Each Patch.td72 1 Patch Topically Every 72 Hours 01/21/17 Fluticasone/Salmeterol (Advair 250-50 Diskus) 1 Disk W/Dev Inhaler 1 Puff Oral Inhalation Resp.tx Twice A Day 02/03/16 Ipratropium/Albuterol Sulfate (Iprat-Albut 0.5-3(2.5) Mg/3 Ml) 3 Ml Ampul.neb 1 Vial Aerosol Tx. Every 4 Hours as needed for Prn Orders 03/30/16 Lorazepam 0.5 Mg Tablet 0.5 Mg Oral Twice A Day 03/30/16 Metronidazole 500 Mg Tablet 500 Mg Oral Three Times A Day Montelukast Sodium (Singulair) 10 Mg Tablet 10 Mg Oral Bedtime Ondansetron Hcl (Zofran) 8 Mg Tablet 8 Mg Oral As Needed 01/21/17 Oxycodone/Acetaminophen (Percocet 7.5-325 Mg Tablet) 7.5-325 Tablet 1-2 Tab Oral Every 4 Hours as needed for Pain 30 Tablet Take 1-2 tablet(S), by mouth, every 4 hours as needed for pain. 07/11/16 Polyethylene Glycol 3350 (Miralax) 17 Gm Powd.pack 17 G Oral Daily as needed for Constipation 02/03/16 Sertraline Hcl (Sertraline) 25 Mg Tablet 25 Mg Oral Bedtime 03/23 Past Home Medications Medication Directions Ordered Status [...] Applicable Not Applicable Hx Substance Use No 01/21/2017 6:59am Not Applicable Not Applicable Hx Alcohol Use No 01/21/2017 6:59am Not Applicable Not Applicable Has the pt used tobacco in the last 12 months Yes 04/02/2016 9:18am Not Applicable Not Applicable Tobacco Usage none 02/19/2016 3:41pm Not Applicable Not Applicable Query Response Start Date Stop Date Smoking Status Former smoker Hospital Discharge Instructions No hospital discharge instructions. Plan of Care Discharge Date 01/21/17 8:47am Disposition 01 DISCHARGED HOME, SELF-CARE Condition at Discharge Improved Instructions/Education Provided Clostridium Difficile Infection (ED) Prescriptions See Medication Section Referrals MIRTA GUERRIER MD Order Date: 1 Week Address: [address] [place] [address] [place] [phone] Note: Additional Instructions/Education You have stomach cramping related to your C diff infection. Talk with your doctor about using Naproxen (aleve) as needed for cramping (this is better than any other medication for this pain). Take the bentyl as needed to help treat the cramping. Follow up with your doctor in the next week. Follow up with the Surgeon later this month as previously arranged. Care Plan and Goals Physician Care Plan Problem: C diff colitis Goal: Follow up with primary care provider Instructions: Take medications and follow care plan as discussed/written Functional Status No functional status results. Allergies, Adverse Reactions, Alerts Allergen Type Severity Reaction Status Last Updated atorvastatin calcium Adverse Reaction Unknown GI DISTRESS Active 01/21/17 Theophylline Adverse Reaction Unknown GI DISTRESS Active 01/21/17 Morphine Adverse Reaction Intermediate GI DISTRESS Active 01/21/17 Aspirin Adverse Reaction Unknown GI DISTRESS Active 01/21/17 Immunizations Query Response on File Recorded Date/Time Hx Influenza Vaccination Y JUN 2015 04/02/16 9:18am Hx Pneumococcal Vaccination Y JUN 2015 PCV 13 04/02/16 9:18am Hx Influenza Vaccination Y JUN 2015 04/02/16 9:18am Influenza Vaccine Hx 2016 01/21/17 6:59am Vital Signs Acute Vital Signs Vital Response Date/Time Temperature (Fahrenheit) 98.1 deg F (96.8 - 99.1) 01/21/2017 8:37am Temperature (Calculated Celsius) 36.43549 degrees C (36.0 - 37.3) 01/21/2017 8:37am Pulse Rate (adult) 81 bpm (60 - 100) 01/21/2017 8:37am Respiratory Rate 20 breaths/min (10 - 20) 01/21/2017 8:37am O2 Sat by Pulse Oximetry 94 % (90 - 100) 01/21/2017 8:37am Blood Pressure 153/67 mm Hg 01/21/2017 8:37am Height (Feet) 5 feet 01/21/2017 6:47am Height (Inches) 6.00 inches 01/21/2017 6:47am Weight (Kilograms) 79.100 kg 01/21/2017 6:47am Body Mass Index (BMI) 28.0 01/21/2017 6:47am Results Laboratory Results Test Name Result Units Flags Reference Collection Date/Time Result Date/ Time Comments Stool Campylobacter PCR NEGATIVE NEGATIVE 01/10/2017 7:30am 2016 9:39am Stool C. difficile Toxin (PCR) DETECTED *A NEGATIVE 01/10/2017 7:30am 01/10/2017 9:39am Stool Plesiomonas shigelloides PCR NEGATIVE NEGATIVE 01/10/2017 7: 30am 01/10/2017 9:39am Stool Salmonella PCR NEGATIVE NEGATIVE 01/10/2017 7:30am 01/10/2017 9 :39am Stool Vibrio (PCR) NEGATIVE NEGATIVE 01/10/2017 7:30am 01/10/2017 9: 39am Stool Vibrio cholera (PCR) NEGATIVE NEGATIVE 01/10/2017 7:30am 2016 9:39am Stool Yersinia enterocolitica (PCR) DETECTED A NEGATIVE 01/10/2017 7: 30am 01/10/2017 9:39am Stool Enteroaggregative E. coli PCR NEGATIVE NEGATIVE 01/10/2017 7: 30am 01/10/2017 9:39am Stool Enteropathogenic E. coli (PCR N/A NEGATIVE 01/10/2017 7:30am 9:39am Stool Enterotoxigenic Ecoli PCR NEGATIVE NEGATIVE 01/10/2017 7:30am 01/10/2017 9:39am Stool E. coli Shiga Toxins NEGATIVE NEGATIVE 01/10/2017 7:30am 2016 9:39am Stool E coli O157 PCR N/A NA/NEG 01/10/2017 7:30am 01/10/2017 9:39am Stool Shigella/EIEC (PCR) NEGATIVE NEGATIVE 01/10/2017 7:30am 2016 9:39am Stool Cryptosporidium PCR NEGATIVE NEGATIVE 01/10/2017 7:30am 2016 9:39am Stool Cyclospora species Detection NEGATIVE NEGATIVE 01/10/2017 7: 30am 01/10/2017 9:39am Stool Entamoeba (PCR) NEGATIVE NEGATIVE 01/10/2017 7:30am 01/10/2017 9:39am Stool Giardia Lamblia PCR NEGATIVE NEGATIVE 01/10/2017 7:30am 2016 9:39am Stool Adenovirus (PCR) NEGATIVE NEGATIVE 01/10/2017 7:30am 2016 9:39am Stool Astrovirus (PCR) NEGATIVE NEGATIVE 01/10/2017 7:30am 2016 9:39am Stool Norovirus GI/GII PCR NEGATIVE NEGATIVE 01/10/2017 7:30am 2016 9:39am Stool Rotavirus A PCR NEGATIVE NEGATIVE 01/10/2017 7:30am 01/10/2017 9:39am Stool Sapovirus (PCR) NEGATIVE NEGATIVE 01/10/2017 7:30am 01/10/2017 9:39am Procedures Procedure Status Date Provider(s) Iadna-dna/rna probe tq 12- Completed 01/10/17 Encounters Encounter Location Arrival/Admit Date Discharge/Depart Date Attending Provider Departed Emergency Room [facility] 01/21/17 6:43am 01/21/17 8: 47am JANUARYCHARIS DO Registered Clinic [facility] 01/10/17 8:19am MIRTA GUERRIER MD Recent Diagnosis
--- OUTSIDE RECORDS SUMMARY | 2017-01-29 07:14 | XMS REPORT | Continuity of Care Document ---
Author Author Eduardo [facility] Organization [facility] L[facility] Address Unknown Phone Unavailable Support Name Relationship Address Phone JENNIFFER PARK FACS, MD Caregiver [address] [place] [address] [place] [phone] MIRTA GUERRIER MD Caregiver [address] [place] [address] [place] [phone] ANNA JETT Next Of Kin [address] [place] [address] Insurance Providers Payer Name Policy Number Subscriber Name Relationship [facility] [id number] Zarina Mortensen Self Medicare Part A Only [id number] Zarina Mortensen Self Advance Directives Directive Response [...] F (96.8 - 99.1) Temperature (Calculated Celsius) 36.58821 degrees C (36.0 - 37.3) Temperature Source [...] 10, 2010 11:06am LAB TEST FORM REQUEST [id number] - Lymphocytes # (Auto) June 11, 2014 [...]
--- NOTE | 2017-01-29 07:30 | NUR ---
PROVIDER DR. MCCALL IN ROOM WITH PT.
--- OUTSIDE RECORDS SUMMARY | 2017-01-29 07:33 | XMS REPORT | Continuity of Care Document ---
Author Author Eduardo [facility]IVE Organization [facility] Address Unknown Phone Unavailable Support Name Relationship Address Phone JENNIFFER PARK FACS, MD Caregiver [address] [place] [address] [place] [phone] MIRTA GUERRIER MD Caregiver [address] [place] [address] [place] [phone] ANNA JETT Next Of Kin [address] [place] [address] Insurance Providers Payer Name Policy Number Subscriber Name Relationship [facility] [id number] Zarina Mortensen Self Medicare Part A Only [id number] Zarina Mortensen Self Advance Directives Directive Response [...] F (96.8 - 99.1) Temperature (Calculated Celsius) 36.57868 degrees C (36.0 - 37.3) Temperature Source [...] 10, 2010 11:06am LAB TEST FORM REQUEST [id number] - Lymphocytes # (Auto) June 11, 2014 [...]
--- NOTE | 2017-01-29 07:38 | ERPDOC ---
Departure Disposition Decision Date: January 29, 2017 Disposition Decision Time: 09:46 Disposition: 01 DISCHARGED HOME, SELF-CARE Impression Impression Impression: Primary Impression: Abdominal pain Abdominal location: generalized Qualified Codes: R10.84 - Generalized abdominal pain Severity: Moderate Condition: Improved Seen By: Physician only Referrals: MIRTA GUERRIER MD (Family) 2 Days Patient Instructions: Abdominal Pain (ED) Problems/Meds/Labs Reviewed?: Yes Medications reviewed and manag: Yes Follow up care ordered?: Yes Mental Status: Alert, Oriented Scripts Dicyclomine HCl (Bentyl) 10 Mg Capsule 2 TAB-CAP PO QID for 7 Days, #56 TAB-CAP 0 Refills Prov: RAJESH MCCALL DO 01/29/17 HPI - Abdominal Pain General Chief Complaint: Abdominal Pain Stated Complaint: STOMACH CRAMPS Time Seen by Provider: 07:07 Source: patient History/Exam Limitations: no limitations HPI - Abdominal Pain Initial Comments 71-year-old male presents to the emergency department with a chief complaint of abdominal cramping. Patient has been expressing these same abdominal cramping for the past 2-3 months. Patient was diagnosed with C. difficile approximately 3 months ago has been treated with vancomycin orally. Patient is no longer experiencing diarrhea. Patient states that his symptoms are improving but he is still experiencing mild generalized abdominal cramping. No radiation. Patient does note mild improvement with his Bentyl. Patient has no other complaints or associated symptoms. He was at home when his symptoms began. Symptoms have been persistent in nature since onset. Occurred At: home Onset: Gradual (Improving. ) Allergies: Coded Allergies: morphine (Verified Adverse Reaction, Intermediate, GI DISTRESS, 01/29/17) aspirin (Verified Adverse Reaction, Unknown, GI DISTRESS, 01/29/17) atorvastatin calcium (Verified Adverse Reaction, Unknown, GI DISTRESS, ) theophylline (Verified Adverse Reaction, Unknown, GI DISTRESS, 01/29/17) Past History Patient Surgical History prostatectomy 2007 left inguinal herniorrhaphy approx 2013 cholecystectomy approx 2011 or 2012 Past Medical History Metabolic: cancer, hypercholesterolemia, hypertension Cardiac: CAD Respiratory: asthma, pulmonary embolus GI: GERD, constipation Male: BPH, kidney stones Neurological: TIA, chronic disability, headaches, neuropathy, other Musculoskeletal: back pain Hematologic: anemia, pancytopenia Psychological: anxiety, depression Surgical History General: EGD, back, gallbladder, hernia Cardiac: cardiac cath Reproductive/: prostatectomy Family History Family PMH: FOUND: CAD, cancer Vaccines Hx Influenza Vaccination: Yes (JUN 2015) Hx Pneumococcal Vaccination: Yes (JUN 2015 PCV 13) Social History Smoking Status: Former smoker Does patient use chewing tobac: No # of Packs/Tins per Day: 1 # of Years: 17 Substance Use Type: does not use Alcohol Intake: none Marital Status: Sexuality: female partner, other Household Members: spouse Review of Systems Constitutional Constitutional: DENIES: chills, fever Eyes General: DENIES: erythema, exudate Lids/Accessories: DENIES: erythema, swelling Vision: DENIES: acuity, blurring ENMT Ears: DENIES: drainage, erythema Hearing: DENIES: hearing loss Balance: DENIES: ataxia, falling to one side Sinuses: DENIES: congestion, pain Nose: DENIES: nosebleeds, pain Mouth/Throat: DENIES: painful swallowing, sore throat Teeth: DENIES: pain Jaw: DENIES: pain Cardiovascular Cardiac: DENIES: chest pain, dyspnea on exertion Rhythm/Rate: DENIES: irregular beat, palpitations Vascular: DENIES: pedal edema, unilateral swelling Pulmonary Respiratory: DENIES: cough, dyspnea, pleuritic chest pain, sputum GI Upper Abdomen: DENIES: nausea, pain, vomiting Lower Abdomen: DENIES: diarrhea, pain General: DENIES: dysuria, frequency, urgency Musculoskeletal General: DENIES: joint pain, tenderness Integumentary Skin: DENIES: itching, rash Neurological General: DENIES: change in strength, headache, numbness, weakness Psychiatric Psychiatric: DENIES: depression, emotional instability, suicidal ideation/ attempt Endocrine Endocrine: DENIES: polydipsia, polyphagia Hematologic/Lymphatic Hematologic/Lymphatic: DENIES: frequent nosebleeds, lymphadenopathy Allergic/Immunological Allergic/Immunoligical: DENIES: allergic reactions, hives Physical Exam General General Nourishment: well nourished, well developed, appears stated age, no acute distress, adult General Body Habitus: well groomed Vitals and Pain First Documented Vital Signs Date Time Temp Pulse Resp B/P Pulse Ox O2 Delivery O2 Flow Rate FiO2 01/29/17 07:10 98.2 91 14 132/83 95 Room Air Weight: Kilograms: 79.800 Height (feet): 5 Height (inches): 6.00 Triage Pain Scale: RN VS reviewed by Provider: Yes Normal Exams: Head: Normocephalic w/o trauma Eyes: Pupils are PERRLA w/ EOMI, No scleral icterus, irritation, or foreign bodies noted ENMT: No facial trauma, nasal exudates, pharyngeal erythema, or exudates are noted Dental: No fractured, loose, or missing teeth noted Neck: Full range of motion, without adenopathy, JVD, bruits or thyromegaly Chest/Resp: Clear all huerta, with good airflow, and symmetry bilaterally CV: Regular rate and rhythm, without murmur or gallop, Pulses 2+ all extremities, capillary refill, <2 seconds all ext., no pedal edema noted Abdomen: Bowel sounds positive, soft, non-tender, non-distended, no hepatosplenomegaly, masses or bruits noted Lymphatic: No lymphadenopathy, or lymphedema noted Musculoskeletal: No tenderness, or deformity noted, good range of motion, all extremities Integumentary: No rashes, hives, or bruising noted, hair and nails, without abnormality Neurologic: Patient is alert, and oriented, cranial nerves, motor/sensory/ cerebellar, exams w/o gross deficits, to observation Psychiatric: Patient exhibits, appropriate attention, emotion and affect Differential Diagnoses Considering: Bowel Obstruction, Hernia, IBS, Ileus, UTI Progress Results/Orders Orders Procedure Category Date Status Time Cbc W/Auto LAB 01/29/17 Complete Diff-Reflex Manual Cmp - Comprehensive LAB 01/29/17 Complete Metabolic Lipase LAB 01/29/17 Complete Ua, Dip Wreflex LAB 01/29/17 Complete Microsc & Tread Booker 07:34 EKG EKG 01/29/17 Taken Iv Lock (Ed Only) EDM 01/29/17 Transmitted 07:34 Lactate - Lactic Acid LAB 01/29/17 Complete Lactate - Lactic Acid LAB 01/29/17 Logged 12:32 Normal Saline (Ns) PHA 01/29/17 Complete 08:15 Ct Abd/Pelvis CT 01/29/17 Resulted W/Contrast Only 08:07 Iohexol (Omnipaque) PHA 01/29/17 Complete 08:16 Normal Saline (Ns) PHA 01/29/17 Complete 08:16 Saline Flush (Iv PHA 01/29/17 Complete Flush) 08:16 Lab Results Laboratory Tests Test 01/29/17 07:45 01/29/17 08:15 White Blood Count 2.1T/MM3 Red Blood Count 3.57M/MM3 Hemoglobin 12.0GM/DL Hematocrit 35.2% Mean Corpuscular Volume 98.6UM3 Mean Corpuscular Hemoglobin 33.6UUG Mean Corpuscular Hemoglobin Concent 34.1GM/DL RDW Standard Deviation 54.8FL Platelet Count 173T/MM3 Mean Platelet Volume 9.3UM3 Immature Granulocyte % (Auto) 0.0% Neutrophils (%) (Auto) 36.1% Lymphocytes (%) (Auto) 45.1% Monocytes (%) (Auto) 12.2% Eosinophils (%) (Auto) 3.3% Basophils (%) (Auto) 3.3% Absolute Immature Granulocyte (auto 0.00T/MM3 Absolute Neutrophils (auto) 0.8T/MM3 Absolute Lymphocytes (auto) 1.0T/MM3 Absolute Monocytes (auto) 0.3T/MM3 Absolute Eosinophils (auto) 0.1T/MM3 Absolute Basophils (auto) 0.1T/MM3 Turbidity < 20 Sodium Level 141MEQ/L Potassium Level 4.3MEQ/L Chloride Level 105MEQ/L Carbon Dioxide Level 25MEQ/L Anion Gap 11MEQ/L Blood Urea Nitrogen 11.0MG/DL Creatinine 0.6MG/DL Glomerular Filtration Rate Calc 134 BUN/Creatinine Ratio 18RATIO Glucose Level 113MG/DL Calculated Osmolality 271MOSM/KG Calcium Level 8.8MG/DL Total Bilirubin 0.50MG/DL Icterus Index < 2 Aspartate Amino Transf (AST/SGOT) 12U/L Alanine Aminotransferase (ALT/SGPT) 33U/L Alkaline Phosphatase 59U/L Total Protein 6.5G/DL Albumin 3.8G/DL Globulin 2.7G/DL Albumin/Globulin Ratio 1.4RATIO Lipase 45U/L Plasma Lactate 1.0MMOL/L Chemistry Specimen Hemolysis < 15 Urine Collection Type Cleancatch-midstream Urine Color Yellow Urine Turbidity Clear Urine pH 5.0 Urine Specific [place] >=1.030 Urine Protein Negative Urine Glucose (UA) Negative Urine Ketones Negative Urine Blood Trace-intact Urine Nitrite Negative Urine Bilirubin Negative Urine Urobilinogen 0.2EU/DL Urine Leukocyte Esterase Negative Urinalysis Comment Microscopic not ind. Medications Current ED Medications Sodium Chloride (NS) 500 ml @ 999 mls/hr Q31M ONCE IV Last administered on 5/ 19/17at 08:15; Start 01/29/17 at 08:15; Stop 01/29/17 at 08:45; Status DC Iohexol 1 bottle 1 bottle STK-MED ONCE .ROUTE ; Start 01/29/17 at 08:16; Stop at 08:17; Status DC Sodium Chloride (NS) 100 ml @ As Directed STK-MED ONCE .ROUTE ; Start 01/29/17 at 08:16; Stop 01/29/17 at 08:17; Status DC Sodium Chloride (Iv Flush) 10 ml STK-MED ONCE .ROUTE ; Start 01/29/17 at 08:16; Stop 01/29/17 at 08:17; Status DC Progress Progress Labs / imaging were discussed in detail with the patient and questions are answered. Patient is given gentle IV hydration. Patient declines offered analgesic/antiemetic medications in the emergency Department. Patient is instructed that he may increase his dose of Bentyl which he is currently on from 10 mg to 20 mg as previously directed. Patient is in agreement with the current plan of management. Patient is discharged home in improved condition. patient is to follow up as instructed. Patient is to return to the emergency department if his condition worsens or changes in any manner. Patient is in agreement with the current plan of management. EKG EKG : Rate: 60-100 Rhythm: sinus [place]: normal QRS: normal Intervals: normal ST/T: normal Interpreted by: signing physician CT CT : CT: Abd/Pelvis IV contrast Interpretation: Normal, Reviewed Written Report RAJESH MCCALL DO January 29, 2017 07:37
[2017-01-29 08:01] LABS: BASOPHILS # (AUTO) 0.1 T/MM3 (0-0.2); BASOPHILS % (AUTO) 3.3 % (0-2); EOSINOPHILS # (AUTO) 0.1 T/MM3 (0-0.5); EOSINOPHILS % (AUTO) 3.3 % (0-4); HCT - HEMATOCRIT 35.2 % (41-53); LYMPHOCYTES % (AUTO) 45.1 % (23-45); MEAN CORPUSCULAR HGB 33.6 UUG (26-34); MEAN CORPUSCULAR HGB CONC(MCHC 34.1 GM/DL (31-37); MEAN CORPUSCULAR VOLUME 98.6 UM3 (80-100); MEAN PLATELET VOLUME 9.3 UM3 (9.4-12.4); MONOCYTES # (AUTO) 0.3 T/MM3 (0-0.8); MONOCYTES % (AUTO) 12.2 % (0-9.0); NEUTROPHILS #(AUTO)-ABSOLUTE 0.8 T/MM3 (1.8-7.7); NEUTROPHILS % (AUTO) 36.1 % (33-66); RED BLOOD COUNT 3.57 M/MM3 (4.50-5.90); WBC - WHITE BLOOD COUNT 2.1 T/MM3 (4.5-11.0)
[2017-01-29 08:05] LABS: ALBUMIN 3.8 G/DL (3.5-5.0); ALBUMIN/GLOBULIN RATIO 1.4 RATIO (1.1-2.2); ALKALINE PHOSPHATASE 59 U/L (38-126); ALT (SGPT) 33 U/L (21-72); ANION GAP 11 MEQ/L (5-15); AST (SGOT) 12 U/L (17-59); BUN/CREATININE RATIO 18 RATIO (6-26); CALCIUM 8.8 MG/DL (8.4-10.2); CHLORIDE 105 MEQ/L (98-107); CO2 - CARBON DIOXIDE 25 MEQ/L (22-30); CREATININE 0.6 MG/DL (0.8-1.5); GLOMERULAR FILTRATION RATE 134; GLUCOSE 113 MG/DL (75-110); LIPASE 45 U/L (23-300); POTASSIUM 4.3 MEQ/L (3.6-5); SODIUM 141 MEQ/L (134-144); TOTAL PROTEIN 6.5 G/DL (6.3-8.2)
[2017-01-29] MEDS ORDERED: NORMAL SALINE 500 ML IV ONE (08:15)
[2017-01-29] MEDS ORDERED: IOHEXOL 300 MG/ML 100ml INJECTION ONE (08:16)
[2017-01-29] MEDS ORDERED: NORMAL SALINE 100 ML ONE (08:16)
[2017-01-29] MEDS ORDERED: SALINE FLUSH 10ml SYRINGE ONE (08:16)
--- NOTE | 2017-01-29 08:20 | NUR ---
RADIOLOGY PT TO RADIOLOGY PER COT.
[2017-01-29 08:30] LABS: BLOOD, URINE TRACE-INTACT (NEGATIVE); COLOR,URINE YELLOW (YELLOW); LEUKOCYTE ESTERASE ,URINE NEGATIVE (NEGATIVE); NITRITE,URINE NEGATIVE (NEGATIVE); UROBILINOGEN,URINE 0.2 EU/DL (NORMAL)
--- NOTE | 2017-01-29 08:32 | NUR ---
RETURN PT RETURNED FROM RADIOLOGY PER COT.
--- NOTE | 2017-01-29 08:40 | NUR ---
PT STATUS PT DENIES ANY NEW COMPLAINTS, REPORRTS HE IS STILL HAVING ABDOMINAL CRAMPING BUT NOT INTENSE.
[2017-01-29] MEDS ORDERED: LENA10CA PO (09:11)
[2017-01-29] MEDS ORDERED: POTA-81 PO (09:14)
[2017-01-29] MEDS ORDERED: MONT10TA22 PO (09:15)
[2017-01-29] MEDS ORDERED: VANC125C12 PO (09:18)
[2017-01-29] MEDS ORDERED: DICY10CA13 PO (09:19)
--- NOTE | 2017-01-29 09:25 | DI ---
Indication: ITS.REASON: abd pain, hx c diff PROCEDURE: CT ABD/PELVIS W/CONTRAST ONLY: Encounter: Initial Comparison: None Technique: Axial CT images were performed through the abdomen and pelvis after the administration of intravenous contrast. Coronal and sagittal two-dimensional reformats. Automated Exposure Control and Iterative Reconstruction dose reducing techniques were utilized. Contrast: Omnipaque 300 100 mL Findings: The lung bases are grossly clear. The liver shows mild intrahepatic bile duct dilatation, probably related to cholecystectomy. No focal enhancing liver mass. The spleen, pancreas and adrenal glands are within normal limits. Left kidney shows multiple parapelvic cysts. Right kidney is normal. No abdominal or pelvic lymphadenopathy. Prior prostatectomy. Bladder appears decompressed. No free fluid. No evidence of colonic wall thickening or inflammatory change. No small bowel obstruction. The appendix is gas-filled and normal. Bone windows show degenerative changes in the spine with multiple prior bone cement procedures and compression fractures. Impression: No acute disease process seen in the abdomen or pelvis. Despite the provided history of C. Difficile there is no colonic inflammation or thickening to suggest active colonic infection. .
[2017-01-29] MEDS ORDERED: DICY10CA48 PO (09:47)
[2017-01-29 10:05] VITALS: BP 135/84; PULSE 68; RESP 14; TEMP 98.2; O2SAT 99
== END 2017-01-29 10:05 | disposition home or self-care (01) ==
LOC: ED 07:06
DX: R10.84 Generalized abdominal pain (principal)
CPT/HCPCS: 36415; 74177; 80053; 81003; 83605; 83690; 85025; 93005; 96360; 99284; J7050; Q9967